=== PATIENT | male | born 1955 | race Caucasian/White ===

== ENCOUNTER 2017-02-26 13:55 | Inpatient (IN) | payer BC ==
[2017-02-26] MEDS ORDERED: VANCOMYCIN HCL INJ 1000 MG VIAL IV ONE (14:08)
[2017-02-26] MEDS ORDERED: PIPERACILLIN/TAZOBACTAM 4.5 GM VIAL IV ONE (14:08)
--- NOTE | 2017-02-26 14:12 | ER Document Report ---
ED Medical Screen (RME) - General Chief Complaint: Leg Swelling Stated Complaint: LEG SWELLING Time Seen by Provider: 02/26/17 14:08 Mode of Arrival: Ambulatory Information source: Patient Notes: 61-year-old male presents with 2 separate complaints from his primary care doctor. Patient notes for the past couple weeks he has had bilateral lower extremity redness and has also had left sided facial swelling probable abscess. Patient was placed on Augmentin denies any fevers or chills. I have greeted and performed a rapid initial assessment of this patient. A comprehensive ED assessment and evaluation of the patient, analysis of test results and completion of the medical decision making process will be conducted by additional ED providers. PHYSICAL EXAMINATION: GENERAL: Well-appearing, well-nourished and in no acute distress. HEAD: Left facial swelling EYES: Pupils equal round extraocular movements intact, conjunctiva are normal. ENT: Nares patent NECK: Normal range of motion LUNGS: No respiratory distress Musculoskeletal: Normal range of motion NEUROLOGICAL: Normal speech, normal gait. PSYCH: Normal mood, normal affect. SKIN: Bilateral lower extremity edema +3 with erythema TRAVEL OUTSIDE OF THE [place] IN LAST 30 DAYS: No - HPI Onset: Last week Onset/Duration: Persistent Quality of pain: Achy Severity: Mild Pain Level: 1 Associated Symptoms: Other Exacerbated by: Denies Relieved by: Denies Similar symptoms previously: Yes Recently seen / treated by doctor: Yes - Sent in by primary care - Related Data Allergies/Adverse Reactions: No Known Allergies Allergy (Verified 02/26/17 14:06) Past Medical History Renal/ Medical History: Denies: Hx Peritoneal Dialysis Physical Exam - Vital signs Vitals: Temp Pulse Resp BP Pulse Ox 98.5 F 120 H 21 H 144/113 H 96 02/26/17 13:58 02/26/17 13:58 02/26/17 13:58 02/26/17 13:58 02/26/17 13:58 Course - Re-evaluation Re-evalutation: 02/26/17 14:15 Patient's lab work notes a white count 19.4 from outlying facility, CT facial ordered - Vital Signs Vital signs: Temp Pulse Resp BP Pulse Ox 98.5 F 120 H 21 H 144/113 H 96 02/26/17 13:58 02/26/17 13:58 02/26/17 13:58 02/26/17 13:58 02/26/17 13:58
[2017-02-26] MEDS: NORMAL SALINE 1000 ML 1,000 ML IV PRN ×4 (14:43→17:11)
[2017-02-26 14:48] LABS: APPEARANCE,URINE CLEAR; BILIRUBIN,URINE NEGATIVE (NEGATIVE); GLUCOSE, URINE NEGATIVE (NEGATIVE); KETONES,URINE NEGATIVE (NEGATIVE); LEUKOCYTE ESTERASE,URINE NEGATIVE (NEGATIVE); NITRITE,URINE NEGATIVE (NEGATIVE); PROTEIN,URINE NEGATIVE (NEGATIVE); URINE SPECIFIC GRAVITY 1.006; UROBILINOGEN,URINE NEGATIVE mg/dL (<2.0)
[2017-02-26 14:56] LABS: ABSOLUTE BASOPHILS # (AUTO) 0.1 10^3/uL (0.0-0.2); ABSOLUTE EOSINOPHILS # (AUTO) 0.5 10^3/uL (0.0-0.6); ABSOLUTE LYMPHOCYTES (AUTO) 0.9 10^3/uL (0.5-4.7); ABSOLUTE MONOCYTES (AUTO) 0.9 10^3/uL (0.1-1.4); ABSOLUTE NEUT (AUTO) 6.9 10^3/uL (1.7-8.2); BASOPHILS % (AUTO) 0.8 % (0-2); EOSINOPHILS % (AUTO) 5.6 % (0-6); HEMATOCRIT 43.7 % (37.9-51.0); HEMOGLOBIN 15.1 g/dL (13.5-17.0); HGB HCT DIFFERENCE 1.6; LYMPHOCYTES % (AUTO) 9.6 % (13-45); MEAN CORPUSCULAR HEMOGLOBIN 32.3 pg (27.0-33.4); MEAN CORPUSCULAR HGB CONC 34.6 g/dL (32.0-36.0); MEAN CORPUSCULAR VOLUME 93 fl (80-97); MONOCYTES % (AUTO) 9.5 % (3-13); RED BLOOD COUNT 4.68 10^6/uL (4.35-5.55); RED CELL DISTRIBUTION WIDTH 14.5 % (11.5-14.0); SEGMENTED NEUTROPHILS % (AUTO) 74.5 % (42-78); WHITE BLOOD COUNT 9.2 10^3/uL (4.0-10.5)
[2017-02-26 15:01] LABS: VENOUS BLOOD BASE EXCESS 4.1 mmol/L; VENOUS BLOOD HCO3 30.8 mmol/L (20-32); VENOUS BLOOD PCO2 53.5 mmHg (35-63); VENOUS BLOOD PH 7.38 (7.30-7.42)
[2017-02-26 15:05] LABS: PROTHROMBIN TIME 14.1 SEC (11.4-15.4)
[2017-02-26 15:17] LABS: ALANINE AMINOTRANSFERASE 38 U/L (21-72); ALKALINE PHOSPHATASE 94 U/L (38-126); ANION GAP 10 (5-19); ASPARTATE AMINO TRANSFERASE 28 U/L (17-59); BILIRUBIN,DIRECT 0.5 mg/dL (0.0-0.4); BILIRUBIN,TOTAL 0.6 mg/dL (0.2-1.3); BLOOD UREA NITROGEN 4 mg/dL (7-20); CALCIUM 9.7 mg/dL (8.4-10.2); CARBON DIOXIDE 30 mmol/L (22-30); CHLORIDE 93 mmol/L (98-107); CREATININE RESULT 0.67 mg/dL (0.52-1.25); GLUCOSE 138 mg/dL (75-110); POTASSIUM 4.5 mmol/L (3.6-5.0); SODIUM 133.2 mmol/L (137-145); TOTAL PROTEIN 7.3 g/dL (6.3-8.2)
--- NOTE | 2017-02-26 15:25 | ER Document Report ---
ED General - General Chief Complaint: Leg Swelling Stated Complaint: LEG SWELLING Time Seen by Provider: 02/26/17 14:08 Mode of Arrival: Ambulatory Information source: Patient Notes: Patient presents complaining of lower extremity swelling for the past 3 weeks. Patient states that he has had swelling to his right lower jaw area off and on for the past 2-3 months. Patient reports he has had an abscess to the left side of his face for the past month. Patient states initially he was placed on clindamycin in early January and then changed over to Augmentin. Patient did see an ENT doctor 3 days ago and had a needle aspiration. Patient states that he is also seen an oral surgeon who advises dental extraction to help with his symptoms. Patient denies any fever, nausea, or vomiting. Patient states that his legs have started to become erythematous and have started to increase in swelling. Patient states that the abscess to the right side of his face comes and goes will occasionally drain purulent drainage. Patient states that the left side jaw swelling has been decreasing. TRAVEL OUTSIDE OF THE [place] IN LAST 30 DAYS: No - HPI Onset: Other - 1 month Onset/Duration: Persistent Pain Level: 3 Associated symptoms: Other - Lower extremity swelling, abscess to bilateral jaw area. denies: Chest pain, Nonproductive cough, Productive cough, Fever Exacerbated by: Denies Relieved by: Denies Similar symptoms previously: No Recently seen / treated by doctor: Yes - Related Data Allergies/Adverse Reactions: No Known Allergies Allergy (Verified 02/26/17 14:06) Home Medications: Current Home Medications No Home Medications 02/27/17 [History] Past Medical History - General Information source: Patient - Social History Smoking Status: Former Smoker Chew tobacco use (# tins/day): No Frequency of alcohol use: Rare Drug Abuse: None Occupation: none Family History: Reviewed & Not Pertinent - Medical History Medical History: Negative Renal/ Medical History: Denies: Hx Peritoneal Dialysis Surgical Hx: Negative - Immunizations Hx Diphtheria, Pertussis, Tetanus Vaccination: No Review of Systems - Review of Systems Constitutional: No symptoms reported. denies: Fever EENT: Other - widespread dental decay Cardiovascular: No symptoms reported Respiratory: No symptoms reported. denies: Cough, Short of breath Gastrointestinal: No symptoms reported. denies: Abdominal pain, Nausea, Vomiting Genitourinary: No symptoms reported Male Genitourinary: No symptoms reported Musculoskeletal: Leg swelling Skin: Change in color - redness to bilat LE, Other - abscess to right and left side of jaw Hematologic/Lymphatic: No symptoms reported Neurological/Psychological: No symptoms reported Physical Exam - Vital signs Vitals: Temp Pulse Resp BP Pulse Ox 98.5 F 120 H 21 H 144/113 H 96 02/26/17 13:58 02/26/17 13:58 02/26/17 13:58 02/26/17 13:58 02/26/17 13:58 - General General appearance: Appears well, Alert In distress: None - HEENT Head: Normocephalic, Atraumatic Eyes: Normal Mouth/Lips: Caries - widespread, Dental fracture Mucous membranes: Normal Pharynx: Normal Neck: Supple, Other - Tender indurated lesion to left lower jaw near angle of mandible, tender mildly indurated lesion to right side of jaw inferior to mandible. No: Lymphadenopathy - Respiratory Respiratory status: No respiratory distress Chest status: Nontender Breath sounds: Normal. No: Rales, Rhonchi, Stridor, Wheezing Chest palpation: Normal - Cardiovascular Rhythm: Regular Heart sounds: S1 appreciated, S2 appreciated Murmur: No - Abdominal Inspection: Normal Distension: No distension Bowel sounds: Normal Tenderness: Nontender Organomegaly: No organomegaly - Back Back: Normal, Nontender. No: CVA tenderness - Extremities General upper extremity: Normal inspection, Normal ROM General lower extremity: Edema. No: Normal temperature Knee: Normal Calf: Other - edema Ankle: Tender, Edema Foot: Tender, Edema Notes: Patient with warm erythematous skin to bilateral lower extremities distal half of lower legs extending to ankles and feet. Patient with multiple fluid-filled blisterlike lesions to bilateral feet - Neurological Neuro grossly intact: Yes Cognition: Normal Pat Coma Scale Eye Opening: Spontaneous Pat Coma Scale Verbal: Oriented Pat Coma Scale Motor: Obeys Commands Pat Coma Scale Total: 15 - Psychological Associated symptoms: Normal affect, Normal mood - Skin Skin Temperature: Warm Skin Moisture: Dry Skin Color: Erythema - bilat LE Skin Turgor: Edematous Skin irregularity: Erythema, Tender indurated area - right side neck, left angle of mandible Irregularity with: Swelling, Tenderness, Warmth, Inflammation - bilat LE Course - Re-evaluation Re-evalutation: 02/26/17 17:[address] Perez regarding patient presentation and diagnostic evaluation. Discussed patient's continued tachycardia, advises starting patient on Cardizem drip and consulting with hospitalist for admission given patient's new onset atrial fibrillation. 02/26/17 17:[address] Cox who advises had a non-cardiac enzymes and BNP test given concerns about CHF. If patient does not have elevated troponin she recommends calling hospitalist back for admission 02/26/17 19:[address] Kilgore who recommends consultation with cardiology as he feels patient may need cardioversion 02/26/17 19:[address] Matamoros who recommends that patient can be placed on Cardizem 60 mg p.o. now and Cardizem 180 CD mg now, but feels that patient should likely be admitted 02/26/17 19:[address] Kilgore who recommends admitting patient to [facility] 02/26/17 19:57 - Vital Signs Vital signs: Temp Pulse Resp BP Pulse Ox 99.1 F 86 14 100/88 H 98 02/27/17 00:46 02/27/17 06:00 02/27/17 04:20 02/27/17 06:57 02/27/17 05:12 - Laboratory Result Diagrams: 02/27/17 03:20 02/27/17 03:20 Laboratory results interpreted by me: 02/26/17 02/26/17 02/26/17 14:32 14:36 14:36 RDW 14.5 H Lymphocytes % 9.6 L Sodium 133.2 L Chloride 93 L BUN 4 L Glucose 138 H POC Glucose 135 H Direct Bilirubin 0.5 H Creatine Kinase NT-Pro-B Natriuret Pep 02/26/17 02/26/17 14:36 14:36 RDW Lymphocytes % Sodium Chloride BUN Glucose POC Glucose Direct Bilirubin Creatine Kinase 40 L NT-Pro-B Natriuret Pep 1610 H Discharge - Discharge Clinical Impression: Peripheral edema, bilateral parotid gland masses Atrial fibrillation Qualifiers: Atrial fibrillation type: unspecified Qualified Code(s): I48.91 - Unspecified atrial fibrillation Condition: Stable Disposition: ADMITTED INPATIENT Admitting Provider: Hospitalist Unit Admitted: [facility]
[2017-02-26] MEDS ORDERED: LORAZEPAM INJ 2 MG/1 ML VIAL IV ONE (16:01)
[2017-02-26 17:49] LABS: ADD ON TESTING BLD IN LAB ACKNOWLEDGE
[2017-02-26 18:00] LABS: CREATINE KINASE 40 U/L (55-170)
[2017-02-26] MEDS: DILTIAZEM HCL/D5W 125 MG/125 ML RTUINJ IV PRN ×2 (18:06→23:29)
[2017-02-26 18:13] LABS: CREATINE KINASE MB 1.27 ng/mL (<4.55)
[2017-02-26 18:19] LABS: TROPONIN I < 0.012 ng/mL
--- NOTE | 2017-02-26 18:21 | RADIOLOGY REPORT (SQ) ---
EXAM DESCRIPTION: CT FACIAL AREA WITH COMPLETED DATE/TIME: 02/26/2017 5:49 pm REASON FOR STUDY: left facial abscess? COMPARISON: None. TECHNIQUE: Post contrast images through the facial bones and orbits windowed for bone and soft tissu e. Additional coronal and sagittal reconstructed images reviewed. All images stored on PACS. All CT scanners at this facility use dose modulation, iterative reconstruction, and/or weight based d osing when appropriate to reduce radiation dose to as low as reasonably achievable (ALARA). [facility]: Dose Right [facility]: CareDose [facility]: Dose Right [facility]: Teradose 4D [facility]: [employer] CONTRAST TYPE AND DOSE: contrast/concentration: Isovue 370.00 mg/ml; Total Contrast Delivered: 49.0 ml; Total Saline Delivered: 47.1 ml RENAL FUNCTION: Creatinine 0.67. RADIATION DOSE: Up-to-date CT equipment and radiation dose reduction techniques were employed. CTDIv ol: 30.4 mGy. DLP: 631 mGy-cm. . LIMITATIONS: None. FINDINGS: FACIAL BONES: No fracture or bone lesion. ORBITS: Intact. No fracture. Symmetric intact globes and retroorbital soft tissues. PARANASAL SINUSES: Clear. No significant mucosal thickening, mass or fluid. No nasal polyps. Maxilla ry sinus outlets are patent. SOFT TISSUES: Heterogeneous masses bilaterally in the parotids, which are otherwise ill-defined with regional fluid and fat stranding. Presumed abnormal enlarged lymph nodes or other masses. The large st appears to be in the region of the left parotid extending inferiorly to lie lateral to the submand ibular gland. This measures at least 4 cm transverse dimension and likely up to 6 cm craniocaudally. Areas of low density within likely reflect necrosis. No calcifications or stones. . INFERIOR BRAIN: Limited view. No acute findings. OTHER: No other significant finding. IMPRESSION: Bilateral masses in the region of the bilateral parotid glands. More extensive on the l eft. Consider infectious inflammatory etiologies including sialadenitis. Low density areas within t he masses most likely represent areas of necrosis/liquefaction. Abscess felt to be unlikely. Please note, neoplasm is also in the differential, to include lymphoma. TECHNICAL DOCUMENTATION: JOB ID: [id number] Quality ID # [id number]: Final reports with documentation of one or more dose reduction techniques (e.g., Au tomated exposure control, adjustment of the mA and/or kV according to patient size, use of iterative reconstruction technique) 2010 [employer]- All Rights Reserved
--- NOTE | 2017-02-26 19:14 | RADIOLOGY REPORT (SQ) ---
EXAM DESCRIPTION: CHEST PA/LAT COMPLETED DATE/TIME: 02/26/2017 5:56 pm REASON FOR STUDY: new a fib COMPARISON: None. TECHNIQUE: Frontal and lateral radiographic views of the chest acquired. NUMBER OF VIEWS: Two view. LIMITATIONS: None. FINDINGS: LUNGS AND PLEURA: Slight vascular congestion is suggested. Minimal interstitial edema lik elias. MEDIASTINUM AND HILAR STRUCTURES: No masses or contour abnormalities. HEART AND VASCULAR STRUCTURES: Mild left ventricular prominence. BONES: No acute findings. HARDWARE: None in the chest. OTHER: No other significant finding. IMPRESSION: Suspect mild interstitial edema and vascular congestion. TECHNICAL DOCUMENTATION: JOB ID: [id number] [employer]- All Rights Reserved
[2017-02-26] MEDS ORDERED: MAG HYDROX/AL HYDROX/SIMETH SUSP 30 ML UDCUP PO PRN (19:51)
[2017-02-26] MEDS ORDERED: IPRATROPIUM/ALBUTEROL 0.5-2.5 MG/3 ML AMPUL NEB PRN (19:51)
[2017-02-26] MEDS ORDERED: ACETAMINOPHEN 325 MG TABLET PO PRN (19:51)
[2017-02-26] MEDS ORDERED: HEPARIN SOD (PORCINE) 1,000 UNIT/ML 10 ML VIAL IV ONE (19:55)
[2017-02-26] MEDS ORDERED: HEPARIN SOD (PORCINE) 1,000 UNIT/ML 10 ML VIAL IV PRN (19:55)
[2017-02-26 21:13] LABS: ABSOLUTE BASOPHILS # (AUTO) 0.1 10^3/uL (0.0-0.2); ABSOLUTE EOSINOPHILS # (AUTO) 0.5 10^3/uL (0.0-0.6); ABSOLUTE NEUT (AUTO) 7.8 10^3/uL (1.7-8.2); BASOPHILS % (AUTO) 0.5 % (0-2); EOSINOPHILS % (AUTO) 4.9 % (0-6); HEMATOCRIT 43.6 % (37.9-51.0); HEMOGLOBIN 14.6 g/dL (13.5-17.0); HGB HCT DIFFERENCE 0.2; LYMPHOCYTES % (AUTO) 9.3 % (13-45); MEAN CORPUSCULAR HEMOGLOBIN 31.8 pg (27.0-33.4); MEAN CORPUSCULAR HGB CONC 33.4 g/dL (32.0-36.0); MEAN CORPUSCULAR VOLUME 95 fl (80-97); MONOCYTES % (AUTO) 9.3 % (3-13); RED BLOOD COUNT 4.57 10^6/uL (4.35-5.55); RED CELL DISTRIBUTION WIDTH 14.3 % (11.5-14.0); WHITE BLOOD COUNT 10.3 10^3/uL (4.0-10.5)
[2017-02-26 21:32] LABS: PROTHROMBIN TIME 14.3 SEC (11.4-15.4)
[2017-02-26 21:33] LABS: PARTIAL THROMBOPLASTIN TIME 31.8 SEC (23.5-35.8)
[2017-02-26 21:49] LABS: CREATINE KINASE MB 1.91 ng/mL (<4.55)
[2017-02-26 21:53] LABS: TROPONIN I < 0.012 ng/mL
[2017-02-26] MEDS ORDERED: IPRATROPIUM BROMIDE 0.02% NEB 0.5 MG/2.5 ML AMPUL NEB ONE (22:45)
[2017-02-26] MEDS ORDERED: LEVALBUTEROL HCL NEB 1.25 MG/3 ML AMPUL NEB ONE (22:45)
[2017-02-26] MEDS ORDERED: FUROSEMIDE INJ/PF 40 MG/4 ML SDV IV ONE (22:45)
--- NOTE | 2017-02-26 23:18 | EKG REPORT ---
SEVERITY:- ABNORMAL ECG - ATRIAL FIBRILLATION, V-RATE 81-134 LOW VOLTAGE IN FRONTAL LEADS CONSIDER ANTEROSEPTAL INFARCT : Confirmed by: Shahzad Matamoros 26-Feb-2017 23:17:51
[2017-02-26] MEDS: HEPARIN SODIUM,PORCINE/D5W 25,000 UNIT/250 ML RTUINJ IV PRN (23:31)
[2017-02-27 03:33] LABS: URINE BARBITURATES SCREEN NEGATIVE; URINE METHADONE SCREEN NEGATIVE; URINE OPIATES LOW NEGATIVE; URINE PHENCYCLIDINE SCREEN NEGATIVE
[2017-02-27 03:39] LABS: ABSOLUTE EOSINOPHILS # (AUTO) 0.5 10^3/uL (0.0-0.6); ABSOLUTE LYMPHOCYTES (AUTO) 0.8 10^3/uL (0.5-4.7); ABSOLUTE MONOCYTES (AUTO) 0.9 10^3/uL (0.1-1.4); ABSOLUTE NEUT (AUTO) 8.3 10^3/uL (1.7-8.2); BASOPHILS % (AUTO) 0.3 % (0-2); HEMATOCRIT 42.5 % (37.9-51.0); HEMOGLOBIN 14.3 g/dL (13.5-17.0); HGB HCT DIFFERENCE 0.4; LYMPHOCYTES % (AUTO) 7.5 % (13-45); MEAN CORPUSCULAR HEMOGLOBIN 31.9 pg (27.0-33.4); MEAN CORPUSCULAR HGB CONC 33.6 g/dL (32.0-36.0); MEAN CORPUSCULAR VOLUME 95 fl (80-97); MONOCYTES % (AUTO) 8.2 % (3-13); RED BLOOD COUNT 4.47 10^6/uL (4.35-5.55); RED CELL DISTRIBUTION WIDTH 13.9 % (11.5-14.0); WHITE BLOOD COUNT 10.5 10^3/uL (4.0-10.5)
[2017-02-27 03:48] LABS: ANION GAP 10 (5-19); BLOOD UREA NITROGEN 3 mg/dL (7-20); CALCIUM 9.1 mg/dL (8.4-10.2); CARBON DIOXIDE 28 mmol/L (22-30); CHLORIDE 99 mmol/L (98-107); CREATINE KINASE 100 U/L (55-170); CREATININE RESULT 0.59 mg/dL (0.52-1.25); GLUCOSE 144 mg/dL (75-110); POTASSIUM 3.9 mmol/L (3.6-5.0); SODIUM 136.7 mmol/L (137-145)
[2017-02-27 03:57] LABS: CREATINE KINASE MB 2.24 ng/mL (<4.55)
[2017-02-27 03:58] LABS: TROPONIN I < 0.012 ng/mL
--- NOTE | 2017-02-27 04:44 | PDOC H&P ---
History of Present Illness Admission Date/PCP: 02/26/17 19:51 Patient complains of: Shortness of breath and leg edema History of Present Illness: DANIELA GARCIA JR is a 61 year old male with a past medical history of tobacco dependence and 3 months of bilateral parotid gland swelling recently seen by ENT placed on Augmentin and clindamycin and subsequently developing diarrhea. However the patient's primary complaint is shortness of breath and lower extremity edema denying palpitations nausea or vomiting prompting his evaluation emergency room. Where he is found to have atrial fibrillation with RVR, acute congestive heart failure, and a CT of the parotid glands suggestive of necrosis without abscess. He is referred to the hospitalist for admission. Past Medical History Endocrine Medical History: Reports: Obesity Psychiatric Medical History: Reports: Tobacco Dependency Social History Information Source: Patient Lives with: Spouse/Significant other Smoking Status: Current Every Day Smoker Cigarettes Packs Per Day: 0.5 Number of Years Smokin Last Time Smoked: today Frequency of Alcohol Use: Social Hx Recreational Drug Use: No Drugs: None Hx Prescription Drug Abuse: No Family History Family History: CAD, COPD, CVA Parental Family History Reviewed: Yes Children Family History Reviewed: Yes Sibling(s) Family History Reviewed.: Yes Medication/Allergy Allergies/Adverse Reactions: No Known Allergies Allergy (Verified 02/26/17 14:06) Review of Systems Constitutional: PRESENT: fatigue Eyes: ABSENT: visual disturbances Ears: ABSENT: hearing changes Nose, Mouth, and Throat: PRESENT: mouth pain, other - Poor dentition bilateral parotid gland swelling with necrosis Cardiovascular: PRESENT: dyspnea on exertion, edema, orthropnea. ABSENT: chest pain, palpitations Respiratory: PRESENT: cough, sputum Gastrointestinal: ABSENT: abdominal pain, constipation, diarrhea, hematemesis, hematochezia, nausea, vomiting Genitourinary: ABSENT: dysuria, hematuria Musculoskeletal: ABSENT: joint swelling Integumentary: ABSENT: rash, wounds Neurological: ABSENT: abnormal gait, abnormal speech, confusion, dizziness, focal weakness, syncope Psychiatric: ABSENT: anxiety, depression, homidical ideation, suicidal ideation Endocrine: ABSENT: cold intolerance, heat intolerance, polydipsia, polyuria Hematologic/Lymphatic: ABSENT: easy bleeding, easy bruising Physical Exam Vital Signs: Temp Pulse Resp BP Pulse Ox 99.1 F 92 14 113/67 90 L 02/27/17 00:46 02/27/17 02:00 02/27/17 00:46 02/27/17 02:01 02/27/17 00:26 Intake & Output 02/25/17 02/26/17 02/27/17 11:59 11:59 11:59 Weight 101.2 kg General appearance: PRESENT: cooperative, mild distress, obese Head exam: PRESENT: atraumatic, normocephalic Eye exam: PRESENT: conjunctiva pink, EOMI, PERRLA. ABSENT: scleral icterus Ear exam: PRESENT: normal external ear exam Mouth exam: PRESENT: tongue midline, other Teeth exam: PRESENT: dental caries, poor dentation Neck exam: PRESENT: other - Bilateral parotid swelling and erythema Respiratory exam: PRESENT: crackles, decreased breath sounds, prolonged expiratory phas, retraction, symmetrical, tachypnea. ABSENT: rales, rhonchi, wheezes Cardiovascular exam: PRESENT: gallop, irregular rhythm, +S1, +S2, tachycardia Pulses: PRESENT: normal dorsalis pedis pul GI/Abdominal exam: PRESENT: normal bowel sounds, soft. ABSENT: distended, guarding, mass, organolmegaly, rebound, tenderness Rectal exam: PRESENT: deferred Extremities exam: PRESENT: pedal edema, +2 edema. ABSENT: joint swelling Neurological exam: PRESENT: alert, awake, oriented to person, oriented to place , oriented to time, oriented to situation, CN II-XII grossly intact. ABSENT: motor sensory deficit Psychiatric exam: PRESENT: unusual affect Skin exam: PRESENT: dry, intact, warm. ABSENT: cyanosis, rash Results Laboratory Results: 02/27/17 03:20 02/27/17 03:20 02/26/17 02/26/17 02/27/17 21:00 21:00 03:20 WBC 10.3 10.5 RBC 4.57 4.47 Hgb 14.6 14.3 Hct 43.6 42.5 MCV 95 95 MCH 31.8 31.9 MCHC 33.4 33.6 RDW 14.3 H 13.9 Plt Count 199 208 Seg Neutrophils % 76.0 79.0 H Lymphocytes % 9.3 L 7.5 L Monocytes % 9.3 8.2 Eosinophils % 4.9 5.0 Basophils % 0.5 0.3 Absolute Neutrophils 7.8 8.3 H Absolute Lymphocytes 1.0 0.8 Absolute Monocytes 1.0 0.9 Absolute Eosinophils 0.5 0.5 Absolute Basophils 0.1 0.0 Sodium Potassium Chloride Carbon Dioxide Anion Gap BUN Creatinine Est GFR ( Amer) Est GFR (Non-Af Amer) Glucose Calcium TSH 1.26 02/27/17 03:20 WBC RBC Hgb Hct MCV MCH MCHC RDW Plt Count Seg Neutrophils % Lymphocytes % Monocytes % Eosinophils % Basophils % Absolute Neutrophils Absolute Lymphocytes Absolute Monocytes Absolute Eosinophils Absolute Basophils Sodium 136.7 L Potassium 3.9 Chloride 99 Carbon Dioxide 28 Anion Gap 10 BUN 3 L Creatinine 0.59 Est GFR ( Amer) > 60 Est GFR (Non-Af Amer) > 60 Glucose 144 H Calcium 9.1 TSH 02/26/17 02/26/17 02/27/17 21:00 21:00 03:20 Creatine Kinase 73 CK-MB (CK-2) 1.91 2.24 Troponin I < 0.012 < 0.012 02/27/17 03:20 Creatine Kinase 100 CK-MB (CK-2) Troponin I Impressions: Facial Bones CT 02/26/17 14:13 IMPRESSION: Bilateral masses in the region of the bilateral parotid glands. More extensive on the left. Consider infectious inflammatory etiologies including sialadenitis. Low density areas within the masses most likely represent areas of necrosis/liquefaction. Abscess felt to be unlikely. Please note, neoplasm is also in the differential, to include lymphoma. Chest X-Ray 02/26/17 17:45 IMPRESSION: Suspect mild interstitial edema and vascular congestion. Assessment & Plan - Diagnosis (1) Congestive heart failure Is this a current diagnosis for this admission?: Yes Plan: Likely secondary to uncontrolled atrial fibrillation and be placed on IV Cardizem, gentle diuresis, BiPAP and 2D echo. (2) Pulmonary embolism Is this a current diagnosis for this admission?: Yes Plan: Concern for PE obtain CTA chest, empiric anticoagulation given chronic inflammatory state, tobacco and hypotension. Follow-up CTA (3) Mass of parotid gland Is this a current diagnosis for this admission?: Yes Plan: Marketed bilateral edema with central necrosis by CT. Recently biopsied by ENT will obtain results concern for adenocarcinoma. Continue empiric antibiotics (4) Atrial fibrillation Qualifiers: Atrial fibrillation type: unspecified Qualified Code(s): I48.91 - Unspecified atrial fibrillation Is this a current diagnosis for this admission?: Yes Plan: IV Cardizem, heparin, evaluate cardiac enzymes and 2D echo. (5) Peripheral edema Is this a current diagnosis for this admission?: Yes Plan: Secondary to acute congestive heart failure gentle diuresis correction of A. fib and decompensated state. (6) C. difficile colitis Is this a current diagnosis for this admission?: Yes Plan: Concern for C. difficile colitis on clindamycin and severe diarrhea. Initiate Flagyl discontinue clindamycin follow-up C. difficile labs. - Time Time Spent: 50 to 70 Minutes - Inpatient Certification Medical Necessity: Need Close Monitoring Due to Risk of Patient Decompensation
[2017-02-27] MEDS: DILTIAZEM HCL 60 MG TABLET PO SCH ×4 (06:07→17:44)
[2017-02-27] MEDS: IPRATROPIUM BROMIDE 0.02% NEB 0.5 MG/2.5 ML AMPUL NEB SCH ×3 (07:42→23:32)
[2017-02-27] MEDS: LEVALBUTEROL HCL NEB 1.25 MG/3 ML AMPUL NEB SCH ×3 (07:43→23:33)
[2017-02-27] MEDS: DOCUSATE SODIUM 100 MG CAPSULE PO SCH ×2 (09:40→12:04)
[2017-02-27] MEDS: FUROSEMIDE INJ/PF 40 MG/4 ML SDV IV SCH (09:52)
[2017-02-27 10:33] LABS: CREATINE KINASE MB 2.25 ng/mL (<4.55)
[2017-02-27 10:39] LABS: TROPONIN I < 0.012 ng/mL
--- NOTE | 2017-02-27 11:16 | PDOC PROGRESS REPORT ---
Subjective Progress Note for:: 02/27/17 Subjective:: Patient reports some diarrhea. Physical Exam Vital Signs: Temp Pulse Resp BP Pulse Ox 99.1 F 91 20 108/81 98 02/27/17 00:46 02/27/17 09:00 02/27/17 07:46 02/27/17 09:00 02/27/17 07:46 Intake & Output 02/26/17 02/27/17 02/28/17 06:59 06:59 06:59 Intake Total 300 Output Total 1800 Balance -1500 Weight 101.2 kg General appearance: PRESENT: no acute distress Eye exam: PRESENT: conjunctiva pink. ABSENT: scleral icterus Mouth exam: PRESENT: moist, tongue midline Neck exam: ABSENT: JVD Respiratory exam: PRESENT: clear to auscultation phil. ABSENT: rales, rhonchi, wheezes Cardiovascular exam: PRESENT: irregular rhythm. ABSENT: diastolic murmur, rubs , systolic murmur GI/Abdominal exam: PRESENT: normal bowel sounds, soft. ABSENT: distended, guarding, mass, organolmegaly, rebound, tenderness Extremities exam: ABSENT: calf tenderness, clubbing, pedal edema Neurological exam: PRESENT: alert, awake, oriented to person, oriented to place , oriented to time, oriented to situation, CN II-XII grossly intact. ABSENT: motor sensory deficit Psychiatric exam: PRESENT: appropriate affect Skin exam: PRESENT: dry, intact, warm. ABSENT: cyanosis, rash Results Laboratory Results: 02/27/17 03:20 02/27/17 03:20 02/26/17 02/26/17 02/27/17 21:00 21:00 03:20 WBC 10.3 10.5 RBC 4.57 4.47 Hgb 14.6 14.3 Hct 43.6 42.5 MCV 95 95 MCH 31.8 31.9 MCHC 33.4 33.6 RDW 14.3 H 13.9 Plt Count 199 208 Seg Neutrophils % 76.0 79.0 H Lymphocytes % 9.3 L 7.5 L Monocytes % 9.3 8.2 Eosinophils % 4.9 5.0 Basophils % 0.5 0.3 Absolute Neutrophils 7.8 8.3 H Absolute Lymphocytes 1.0 0.8 Absolute Monocytes 1.0 0.9 Absolute Eosinophils 0.5 0.5 Absolute Basophils 0.1 0.0 Sodium Potassium Chloride Carbon Dioxide Anion Gap BUN Creatinine Est GFR ( Amer) Est GFR (Non-Af Amer) Glucose Calcium TSH 1.26 Stool Occult Blood 02/27/17 02/27/17 03:20 10:10 WBC RBC Hgb Hct MCV MCH MCHC RDW Plt Count Seg Neutrophils % Lymphocytes % Monocytes % Eosinophils % Basophils % Absolute Neutrophils Absolute Lymphocytes Absolute Monocytes Absolute Eosinophils Absolute Basophils Sodium 136.7 L Potassium 3.9 Chloride 99 Carbon Dioxide 28 Anion Gap 10 BUN 3 L Creatinine 0.59 Est GFR ( Amer) > 60 Est GFR (Non-Af Amer) > 60 Glucose 144 H Calcium 9.1 TSH Stool Occult Blood POSITIVE 02/26/17 02/26/17 02/27/17 21:00 21:00 03:20 Creatine Kinase 73 CK-MB (CK-2) 1.91 2.24 Troponin I < 0.012 < 0.012 02/27/17 02/27/17 02/27/17 03:20 09:40 09:40 Creatine Kinase 100 115 CK-MB (CK-2) 2.25 Troponin I < 0.012 Impressions: Facial Bones CT 02/26/17 14:13 IMPRESSION: Bilateral masses in the region of the bilateral parotid glands. More extensive on the left. Consider infectious inflammatory etiologies including sialadenitis. Low density areas within the masses most likely represent areas of necrosis/liquefaction. Abscess felt to be unlikely. Please note, neoplasm is also in the differential, to include lymphoma. Chest X-Ray 02/26/17 17:45 IMPRESSION: Suspect mild interstitial edema and vascular congestion. Assessment & Plan - Diagnosis (1) Atrial fibrillation Qualifiers: Atrial fibrillation type: unspecified Qualified Code(s): I48.91 - Unspecified atrial fibrillation Is this a current diagnosis for this admission?: Yes Plan: Patient is currently rate controlled on the diltiazem drip. Patient is to get an echocardiogram and be evaluated by cardiology today. A CT angiogram of the lungs has been ordered to rule out pulmonary embolism. We are waiting on those results. (2) Congestive heart failure Is this a current diagnosis for this admission?: Yes Plan: Patient appears to be euvolemic at the time of my exam. The patient most likely has CHF on the basis of atrial fibrillation with rapid ventricular rate. (3) Mass of parotid gland Is this a current diagnosis for this admission?: Yes Plan: She was recently on clindamycin and Augmentin. The patient now has diarrhea. A C. difficile test has been sent. We will continue to Flagyl for now. (4) C. difficile colitis Is this a current diagnosis for this admission?: Yes - Time Time Spent with patient: 25-34 minutes
--- NOTE | 2017-02-27 11:28 | PDOC CONSULTATION ---
Consultation Consult Date: 02/27/17 Attending physician:: SENTHIL CA Consult reason:: Atrial fibrillation, CHF History of Present Illness Admission Date/PCP: 02/26/17 19:51 Patient complains of: Leg edema History of Present Illness: DANIELA GARCIA JR is a 61 year old male with a past medical history of tobacco dependence and 3 months of bilateral parotid gland swelling recently seen by ENT placed on Augmentin and clindamycin and subsequently developing diarrhea. However the patient's primary complaint is shortness of breath and lower extremity edema. Denying palpitations, nausea or vomiting or any chest pain.. In the emergency room patient is found to have atrial fibrillation with RVR, acute congestive heart failure, and a CT of the parotid glands suggestive of necrosis without abscess. Patient chest x-ray shows congestive heart failure. Patient noted to be in atrial fibrillation with rapid ventricular response. Patient therefore referred for further evaluation and management. Past Medical History Endocrine Medical History: Reports: Obesity Psychiatric Medical History: Reports: Tobacco Dependency Social History Information Source: Patient Lives with: Spouse/Significant other Smoking Status: Former Smoker Cigarettes Packs Per Day: 0.5 Number of Years Smokin Last Time Smoked: today Frequency of Alcohol Use: Social Hx Recreational Drug Use: No Drugs: None Hx Prescription Drug Abuse: No - Advance Directive Resuscitation Status: Full Code Surrogate healthcare decision maker:: Patient's brother by the name of Winston is the surrogate decision-maker Family History Family History: Hypertension Parental Family History Reviewed: Yes Children Family History Reviewed: Yes Sibling(s) Family History Reviewed.: Yes Medication/Allergy Home Medications: No Home Medications 02/27/17 Allergies/Adverse Reactions: No Known Allergies Allergy (Verified 02/26/17 14:06) Review of Systems Review of Systems: Please see history of present illness and past medical history as wall. Constitutional: No fever or chills reported. Head : No recent chronic headaches, recent head injury. Bilateral parotid swelling been noted for a few weeks. Eyes: No recent eye pain, diplopia, redness, discharge, acute visual changes. Ears: No recent chronic ear pain, acute hearing loss, ear discharge. Oral cavity: No recent ulcerations, bleeding, oral cavity discomfort. Neck: No recent acute neck pain reported. Hematologic: No recent easy bruising or bleeding or hematologic malignancy reported. Lymphatic: No recent lymphatic malignancy, chronic lymphadenopathy reported yet Cardiovascular system review: See history of present illness. Respiratory system review: No recent chronic cough, hemoptysis, blood clots in the lungs reported. Moderate shortness of breath on exertion. Patient has also noted significant exercise intolerance. Gastrointestinal system review: Negative for any recent acute or chronic abdominal pain, hematemesis, melena, recent change in bowel habits. Genitourinary system review: No recent acute or chronic hematuria, flank pain, UTI etc. reported. Skin system review: Negative for any recent abnormal bruising, no rash, no pruritus reported. Patient has noted bilateral pedal edema. Neurologic: No prior history of strokes, mini strokes, seizure disorder. Psychologic: No history of major psychosis or major depression reported. Musculoskeletal: Minor aches and pains reported. No acute joint swelling reported. Endocrine: No recent polyuria, polydipsia, recent heat or cold intolerance. Physical Exam Vital Signs: Temp Pulse Resp BP Pulse Ox 99.1 F 91 20 108/81 98 02/27/17 00:46 02/27/17 09:00 02/27/17 07:46 02/27/17 09:00 02/27/17 07:46 Intake & Output 02/26/17 02/27/17 02/28/17 06:59 06:59 06:59 Intake Total 300 Output Total 1800 Balance -1500 Weight 101.2 kg Exam: GENERAL: well-nourished and in no acute distress. Alert and oriented x3 HEAD: Atraumatic, normocephalic. EYES: Pupils equal round and reactive to light, extraocular movements intact, sclera anicteric, conjunctiva are normal. ENT: TMs normal, nares patent, oropharynx clear without exudates. Moist mucous membranes. No oral ulcerations or bleeding gums noted NECK: supple without lymphadenopathy. Trachea is central. No cervical or axillary lymphadenopathy noted. Carotids are 2+, JVD 8-10 cm LUNGS: Respiration seems nonlabored, no significant accessory muscle action noted. Bibasilar fine crackles noted. No wheezes rales or rhonchi noted. No significant dullness noted on percussion. CHEST: Palpation of the chest wall shows no significant chest wall tenderness. No other significant abnormalities noted. HEART: [place] PATIENT SERVICES ASSISTANT, No PSH, 1/6 CORINNA aortic area, 1/6 lazcano systolic murmur mitral area, no rubs, no gallops. ABDOMEN: Soft, no significant tenderness appreciated, normoactive bowel sounds. No guarding, no rebound. No rigidity noted . No masses appreciated. EXTREMITIES: Pedal pulses are 1-2+, no calf tenderness noted. No clubbing or cyanosis. 2 + pedal edema noted NEUROLOGICAL: Focused neurological exam showed no significant neurologic deficit. Normal speech, no focal weakness appreciated. PSYCH: Normal mood, normal affect. Judgment and insight within normal limits. SKIN: No significant ecchymosis, ulcerations or signs of pruritus noted. Cellulitic rash noted both lower extremity. MUSCULOSKELETAL EXAM: No significant joint swelling noted. Results Laboratory Results: 02/27/17 03:20 02/27/17 03:20 02/26/17 02/26/17 02/27/17 21:00 21:00 03:20 WBC 10.3 10.5 RBC 4.57 4.47 Hgb 14.6 14.3 Hct 43.6 42.5 MCV 95 95 MCH 31.8 31.9 MCHC 33.4 33.6 RDW 14.3 H 13.9 Plt Count 199 208 Seg Neutrophils % 76.0 79.0 H Lymphocytes % 9.3 L 7.5 L Monocytes % 9.3 8.2 Eosinophils % 4.9 5.0 Basophils % 0.5 0.3 Absolute Neutrophils 7.8 8.3 H Absolute Lymphocytes 1.0 0.8 Absolute Monocytes 1.0 0.9 Absolute Eosinophils 0.5 0.5 Absolute Basophils 0.1 0.0 Sodium Potassium Chloride Carbon Dioxide Anion Gap BUN Creatinine Est GFR ( Amer) Est GFR (Non-Af Amer) Glucose Calcium TSH 1.26 Stool Occult Blood 02/27/17 02/27/17 03:20 10:10 WBC RBC Hgb Hct MCV MCH MCHC RDW Plt Count Seg Neutrophils % Lymphocytes % Monocytes % Eosinophils % Basophils % Absolute Neutrophils Absolute Lymphocytes Absolute Monocytes Absolute Eosinophils Absolute Basophils Sodium 136.7 L Potassium 3.9 Chloride 99 Carbon Dioxide 28 Anion Gap 10 BUN 3 L Creatinine 0.59 Est GFR ( Amer) > 60 Est GFR (Non-Af Amer) > 60 Glucose 144 H Calcium 9.1 TSH Stool Occult Blood POSITIVE 02/26/17 02/26/17 02/27/17 21:00 21:00 03:20 Creatine Kinase 73 CK-MB (CK-2) 1.91 2.24 Troponin I < 0.012 < 0.012 02/27/17 02/27/17 02/27/17 03:20 09:40 09:40 Creatine Kinase 100 115 CK-MB (CK-2) 2.25 Troponin I < 0.012 EKG Comments: Twelve-lead EKG this morning shows atrial fibrillation with rapid ventricular response. No acute ST-T wave changes noted. Admission EKG reviewed. No acute findings noted. Impressions: Facial Bones CT 02/26/17 14:13 IMPRESSION: Bilateral masses in the region of the bilateral parotid glands. More extensive on the left. Consider infectious inflammatory etiologies including sialadenitis. Low density areas within the masses most likely represent areas of necrosis/liquefaction. Abscess felt to be unlikely. Please note, neoplasm is also in the differential, to include lymphoma. Chest X-Ray 02/26/17 17:45 IMPRESSION: Suspect mild interstitial edema and vascular congestion. Assessment & Plan - Diagnosis (1) Atrial fibrillation with rapid ventricular response Is this a current diagnosis for this admission?: Yes (2) Congestive heart failure Is this a current diagnosis for this admission?: Yes (3) Peripheral edema Is this a current diagnosis for this admission?: Yes (4) Mass of parotid gland Is this a current diagnosis for this admission?: Yes - Notes Notes: Atrial fibrillation with rapid ventricular response: Continue Cardizem drip for rate control. May consider a switch to p.o. Cardizem at 60 mg p.o. every 6. If LVEF is noted to be low consider switch to metoprolol succinate. May also use digoxin for rate control if EF is noted to be low. Agree with obtaining CTA of the chest to rule out pulmonary embolism. CHF: Most likely precipitated by atrial fibrillation, in setting of either diastolic dysfunction or systolic dysfunction. Patient could also have valvular heart disease. data communications technician has been informed to do the test today. Further changes in medication will be based on 2D echo results. Peripheral edema: Most likely part of CHF but there may be significant contribution from venous insufficiency and dependency. Patient may need to be ruled out for DVT. Parotid gland mass: Continue with conservative management for the time being. Patient already has been evaluated by ENT surgeon. - Time Time Spent: 30 to 50 Minutes - CODE STATUS was discussed, patient remains full code. Surrogate decision-maker patient's brother by the name of Winston. Multiple medical problems were addressed. More than 50% of the time spent coordinating care, discussing management plans with involved caregivers. Management plans discussed with involved personnels. Medical decision making was of moderate to high complexity, patient's has multiple comorbidities. Medications reviewed and adjusted accordingly: Yes
--- NOTE | 2017-02-27 11:34 | EKG REPORT ---
SEVERITY:- ABNORMAL ECG - ATRIAL FIBRILLATION, V-RATE 62-105 VENTRICULAR PREMATURE COMPLEX PROBABLE ANTEROSEPTAL INFARCT, AGE INDETERM : Confirmed by: Shahzad Matamoros 27-Feb-2017 11:34:19
[2017-02-27] MEDS: METRONIDAZOLE 500 MG TABLET PO SCH ×3 (13:06→23:58)
--- NOTE | 2017-02-27 13:29 | XCELERA REPORT ---
[address] [address] Transthoracic Echocardiogram Report Name: DANIELA GARCIA JR Age: 61 yrs Gender: Male : 1955 Patient Status: Inpatient Patient Location: [address] [place] [address] Study Date: 02/27/2017 12:37 PM Height: 67 in Weight: 223 lb BSA: 2.1 m2 Procedure: A complete two-dimensional transthoracic echocardiogram was performed (2D, M-mode, spectral and color flow Doppler). The study was technically difficult with many images being suboptimal in quality. Reason For Study: afib Ordering Physician: SENTHIL CA Performed By: Dee Orozco Interpretation Summary The left ventricular ejection fraction is within normal limits. Doppler measurements suggest pseudonormalized left ventricular relaxation, which is associated with grade II/IV or mild to moderate diastolic dysfunction There is borderline concentric left ventricular hypertrophy. The left ventricle is grossly normal size. Wall motion cannot be accurately commented on, but no definite regional wall motion abnormalities noted. The right ventricular systolic function is normal. The right atrium is mildly dilated. The left atrium is severely dilated. There is a moderate amount of mitral regurgitation There is no mitral valve stenosis. No aortic regurgitation is present. There is no aortic valve stenosis There is a mild amount of tricuspid regurgitation There is mild to moderate pulmonary hypertension by echo Right ventricular systolic pressure is estimated to be elevated at 40- 50mmHg. Minimal pericardial effusion. MMode/2D Measurements & Calculations RVDd: 3.4 cm LVIDd: 5.2 cm FS: 36.2 % MV Diam: IVSd: 1.0 cm LVIDs: 3.3 cm EDV(Teich): 2.4 cm LVPWd: 0.98 cm 128.8 ml ESV(Teich): 44.4 ml EF(Teich): 65.5 % Ao root diam: LVOT diam: 2.5 cm LA A2Cs: 41.5 cm2LA A4Cs: 3.7 cm LVOT area: 4.8 cm2 35.9 cm2 Ao root area: 10.8 cm2 LA dimension: 5.3 cm LA length: 7.4 cm LA Vol Index (BP): LA Volume: 170.4 ml 80.5 ml/m2 Doppler Measurements & Calculations MV E max tarik: MV area (1 diam): MV P1/2t max tarik: Ao V2 max: 172.1 cm/sec 4.7 cm2 172.1 cm/sec 174.5 cm/sec MV A max tarik: MV Flow area MV P1/2t: 62.0 msec Ao max P.1 cm/sec MVA(P1/2t): 3.6 cm2 12.2 mmHg MV E/A: 3.2 (1diam): 4.7 cm2 MV dec slope: JORDYN(V,D): 1.9 cm2 813.8 cm/sec2 LV V1 max PG: MR max tarik: PA V2 max: TR max tarik: 1.9 mmHg 439.2 cm/sec 78.0 cm/sec 289.9 cm/sec LV V1 max: MR max PG: PA max P.4 mmHg TR max P.8 cm/sec 77.2 mmHg 33.6 mmHg LV dP/dt: 1298 mmHg/s Left Ventricle The left ventricle is grossly normal size. There is borderline concentric left ventricular hypertrophy. The left ventricular ejection fraction is within normal limits. Doppler measurements suggest pseudonormalized left ventricular relaxation, which is associated with grade II/IV or mild to moderate diastolic dysfunction. Wall motion cannot be accurately commented on, but no definite regional wall motion abnormalities noted. Right Ventricle The right ventricle is grossly normal size. There is normal right ventricular wall thickness. The right ventricular systolic function is normal. Atria The right atrium is mildly dilated. The left atrium is severely dilated. Interarterial septum not well visualized and not well dopplered. Cannot comment on ASD/PFO presence. Mitral Valve The mitral valve leaflets are sclerotic, but show no functional abnormalities. There is no mitral valve stenosis. There is a moderate amount of mitral regurgitation. Aortic Valve The aortic valve is not well visualized secondary to technical limitations. There is no aortic valve stenosis. No aortic regurgitation is present. Tricuspid Valve The tricuspid valve is not well visualized, but is grossly normal. There is no tricuspid stenosis. There is a mild amount of tricuspid regurgitation. There is mild to moderate pulmonary hypertension by echo. Right ventricular systolic pressure is estimated to be elevated at 40-50mmHg. Pulmonic Valve The pulmonic valve is not well visualized. Great Vessels The aortic root is not well visualized. The inferior vena cava appeared normal and decreased > 50% with respiration (RAP 5-10 mmHg). Effusions Minimal pericardial effusion. : SENTHIL CA > Shahzad Matamoros
[2017-02-27] MEDS ORDERED: DILTIAZEM HCL/D5W 125 MG/125 ML RTUINJ IV PRN (14:12)
[2017-02-27] MEDS ORDERED: DILTIAZEM HCL/D5W 125 MG/125 ML RTUINJ IV ONE (14:13)
[2017-02-27] MEDS: HEPARIN SODIUM,PORCINE/D5W 25,000 UNIT/250 ML RTUINJ IV PRN (14:43)
[2017-02-27] MEDS ORDERED: DILTIAZEM HCL 60 MG TABLET PO ONE (15:00)
--- NOTE | 2017-02-27 19:11 | RADIOLOGY REPORT (SQ) ---
EXAM DESCRIPTION: CTA CHEST COMPLETED DATE/TIME: 02/27/2017 6:50 pm REASON FOR STUDY: acute chf COMPARISON: None. TECHNIQUE: CT scan of the chest performed using helical scanning technique with dynamic intravenous contrast injection. Images reviewed with lung, soft tissue and bone windows. Reconstructed coronal and sagittal MPR images reviewed. Additional 3 dimensional post-processing performed to develop Maximal Intensity Projection images ([place] P). All images stored on PACS. All CT scanners at this facility use dose modulation, iterative reconstruction, and/or weight based d osing when appropriate to reduce radiation dose to as low as reasonably achievable (ALARA). [facility]: Dose Right [facility]: CareDose [facility]: Dose Right [facility]: Teradose 4D [facility]: Razume CONTRAST TYPE AND DOSE: contrast/concentration: Isovue 370.00 mg/ml; Total Contrast Delivered: 114.8 ml; Total Saline Delivered: 187.0 ml Contrast bolus optimized for the pulmonary arteries. Not diagnostic for the aorta. RENAL FUNCTION: BUN 3 creatinine 0.59. RADIATION DOSE: Up-to-date CT equipment and radiation dose reduction techniques were employed. CTDIv ol: 19.8 - 27.0 mGy. DLP: 1847 mGy-cm. . LIMITATIONS: None. FINDINGS: LUNGS AND PLEURA: No masses, infiltrates, pneumothorax. Mild atelectasis or scarring in t he lingula. No pleural effusions, calcifications. AORTA AND GREAT VESSELS: No aneurysm. Contrast bolus not optimized for the aorta. HEART: No pericardial effusion. No significant coronary artery calcifications. PULMONARY ARTERIES: No emboli visualized in the main pulmonary arteries or the segmental branches. HILAR AND MEDIASTINAL STRUCTURES: No identified masses or abnormal nodes. HARDWARE: None in the chest. UPPER ABDOMEN: No significant findings. Limited exam. THYROID AND OTHER SOFT TISSUES: No masses. No adenopathy. BONES: No acute or significant finding. 3D MIPS: Confirm above findings. OTHER: No other significant finding. IMPRESSION: NORMAL CTA OF THE CHEST. NO PULMONARY EMBOLI. COMMENT: Quality ID # [id number]: Final reports with documentation of one or more dose reduction techniques (e.g., Automated exposure control, adjustment of the mA and/or kV according to patient size, use of iterative reconstruction technique) TECHNICAL DOCUMENTATION: JOB ID: [id number] [employer]- All Rights Reserved
[2017-02-28] MEDS: DILTIAZEM HCL 60 MG TABLET PO SCH ×5 (00:01→23:32)
[2017-02-28 03:44] LABS: APPEARANCE,URINE CLEAR; BILIRUBIN,URINE NEGATIVE (NEGATIVE); GLUCOSE, URINE NEGATIVE (NEGATIVE); KETONES,URINE TRACE mg/dL (NEGATIVE); LEUKOCYTE ESTERASE,URINE NEGATIVE (NEGATIVE); NITRITE,URINE NEGATIVE (NEGATIVE); PROTEIN,URINE NEGATIVE (NEGATIVE); URINE SPECIFIC GRAVITY 1.034; UROBILINOGEN,URINE NEGATIVE mg/dL (<2.0)
[2017-02-28] MEDS: METRONIDAZOLE 500 MG TABLET PO SCH ×4 (05:59→23:33)
[2017-02-28 06:26] LABS: HEMATOCRIT 38.2 % (37.9-51.0); HEMOGLOBIN 13.1 g/dL (13.5-17.0); HGB HCT DIFFERENCE 1.1; MEAN CORPUSCULAR HEMOGLOBIN 32.4 pg (27.0-33.4); MEAN CORPUSCULAR HGB CONC 34.3 g/dL (32.0-36.0); MEAN CORPUSCULAR VOLUME 94 fl (80-97); RED BLOOD COUNT 4.05 10^6/uL (4.35-5.55); RED CELL DISTRIBUTION WIDTH 14.2 % (11.5-14.0); WHITE BLOOD COUNT 9.2 10^3/uL (4.0-10.5)
[2017-02-28 06:49] LABS: ANION GAP 9 (5-19); BLOOD UREA NITROGEN 3 mg/dL (7-20); CALCIUM 8.9 mg/dL (8.4-10.2); CARBON DIOXIDE 28 mmol/L (22-30); CHLORIDE 96 mmol/L (98-107); CREATININE RESULT 0.58 mg/dL (0.52-1.25); GLUCOSE 141 mg/dL (75-110); POTASSIUM 3.6 mmol/L (3.6-5.0); SODIUM 132.6 mmol/L (137-145)
[2017-02-28] MEDS: HEPARIN SODIUM,PORCINE/D5W 25,000 UNIT/250 ML RTUINJ IV PRN ×2 (06:56→22:15)
[2017-02-28] MEDS: LEVALBUTEROL HCL NEB 1.25 MG/3 ML AMPUL NEB SCH (08:30)
[2017-02-28] MEDS: IPRATROPIUM BROMIDE 0.02% NEB 0.5 MG/2.5 ML AMPUL NEB SCH (08:30)
[2017-02-28] MEDS: DOCUSATE SODIUM 100 MG CAPSULE PO SCH ×2 (09:26→16:26)
[2017-02-28] MEDS: FUROSEMIDE INJ/PF 40 MG/4 ML SDV IV SCH (12:35)
--- NOTE | 2017-02-28 12:43 | PDOC PROGRESS REPORT ---
Subjective Progress Note for:: 02/28/17 Subjective:: Patient seems to be doing better with gradual improvement. Edema is improved. Dyspnea is improved. Pt is denying any chest arm or neck discomfort. Patient denying any PND, orthopnea. Patient denied any sustained palpitations, dizziness, syncope, near syncope. Patient denying any fever chills. Patient denying any other significant discomfort. Patient is maintaining chronic atrial fibrillation, heart rate well controlled. Review of systems: Rest review of systems negative. Medications: Medications have been reviewed. Physical Exam Vital Signs: Temp Pulse Resp BP Pulse Ox 97.6 F 107 H 18 119/73 94 02/28/17 11:13 02/28/17 11:13 02/28/17 11:13 02/28/17 11:13 02/28/17 11:13 Intake & Output 02/27/17 02/28/17 03/01/17 06:59 06:59 06:59 Intake Total 300 2243 Output Total 1800 2200 Balance -1500 43 Weight 101.2 kg 99.4 kg Exam: GENERAL: well-nourished and in no acute distress. Alert and oriented x3 HEAD: Atraumatic, normocephalic. EYES: Pupils equal round and reactive to light, extraocular movements intact, sclera anicteric, conjunctiva are normal. ENT: TMs normal, nares patent, oropharynx clear without exudates. Moist mucous membranes. No oral ulcerations or bleeding gums noted NECK: supple without lymphadenopathy. Trachea is central. No cervical or axillary lymphadenopathy noted. Carotids are 2+, JVD 8-10 cm LUNGS: Respiration seems nonlabored, no significant accessory muscle action noted. Bibasilar fine crackles noted. No wheezes rales or rhonchi noted. No significant dullness noted on percussion. CHEST: Palpation of the chest wall shows no significant chest wall tenderness. No other significant abnormalities noted. HEART: [place] DIRECTOR OF STATE, No PSH, 1/6 CORINNA aortic area, 1/6 lazcano systolic murmur mitral area, no rubs, no gallops. ABDOMEN: Soft, no significant tenderness appreciated, normoactive bowel sounds. No guarding, no rebound. No rigidity noted . No masses appreciated. EXTREMITIES: Pedal pulses are 1-2+, no calf tenderness noted. No clubbing or cyanosis. 2 + pedal edema noted NEUROLOGICAL: Focused neurological exam showed no significant neurologic deficit. Normal speech, no focal weakness appreciated. Patient seems to have upper motor neuron right facial paresis. Some flattening of right side face with twisting of angle of mouth to the left side. And right palpebral fissure seems bigger. PSYCH: Normal mood, normal affect. Judgment and insight within normal limits. SKIN: No significant ecchymosis, ulcerations or signs of pruritus noted. Cellulitic rash noted both lower extremity. MUSCULOSKELETAL EXAM: No significant joint swelling noted. Results Laboratory Results: 02/28/17 05:56 02/28/17 05:56 02/28/17 02/28/17 02/28/17 03:26 05:56 05:56 WBC 9.2 RBC 4.05 L Hgb 13.1 L Hct 38.2 MCV 94 MCH 32.4 MCHC 34.3 RDW 14.2 H Plt Count 177 Sodium 132.6 L Potassium 3.6 Chloride 96 L Carbon Dioxide 28 Anion Gap 9 BUN 3 L Creatinine 0.58 Est GFR ( Amer) > 60 Est GFR (Non-Af Amer) > 60 Glucose 141 H Calcium 8.9 Urine Color YELLOW Urine Appearance CLEAR Urine pH 6.0 Ur Specific [place] 1.034 Urine Protein NEGATIVE Urine Glucose (UA) NEGATIVE Urine Ketones TRACE H Urine Blood NEGATIVE Urine Nitrite NEGATIVE Ur Leukocyte Esterase NEGATIVE Urine RBC (Auto) 1 Stool Occult Blood 02/28/17 10:00 WBC RBC Hgb Hct MCV MCH MCHC RDW Plt Count Sodium Potassium Chloride Carbon Dioxide Anion Gap BUN Creatinine Est GFR ( Amer) Est GFR (Non-Af Amer) Glucose Calcium Urine Color Urine Appearance Urine pH Ur Specific [place] Urine Protein Urine Glucose (UA) Urine Ketones Urine Blood Urine Nitrite Ur Leukocyte Esterase Urine RBC (Auto) Stool Occult Blood POSITIVE 02/26/17 02/26/17 02/27/17 21:00 21:00 03:20 Creatine Kinase 73 CK-MB (CK-2) 1.91 2.24 Troponin I < 0.012 < 0.012 02/27/17 02/27/17 02/27/17 03:20 09:40 09:40 Creatine Kinase 100 115 CK-MB (CK-2) 2.25 Troponin I < 0.012 EKG Comments: Showed atrial fibrillation with controlled ventricular response. Impressions: Facial Bones CT 02/26/17 14:13 IMPRESSION: Bilateral masses in the region of the bilateral parotid glands. More extensive on the left. Consider infectious inflammatory etiologies including sialadenitis. Low density areas within the masses most likely represent areas of necrosis/liquefaction. Abscess felt to be unlikely. Please note, neoplasm is also in the differential, to include lymphoma. Chest X-Ray 02/26/17 17:45 IMPRESSION: Suspect mild interstitial edema and vascular congestion. Chest/Abdomen CTA 02/27/17 00:00 IMPRESSION: NORMAL CTA OF THE CHEST. NO PULMONARY EMBOLI. Assessment & Plan - Diagnosis (1) Atrial fibrillation with rapid ventricular response Is this a current diagnosis for this admission?: Yes (2) Congestive heart failure Is this a current diagnosis for this admission?: Yes (3) Peripheral edema Is this a current diagnosis for this admission?: Yes (4) Mass of parotid gland Is this a current diagnosis for this admission?: Yes (5) Mitral regurgitation Qualifiers: Cardiac valve disease etiology: nonrheumatic Qualified Code(s): I34.0 - Nonrheumatic mitral (valve) insufficiency Is this a current diagnosis for this admission?: Yes - Notes Notes: Atrial fibrillation with rapid ventricular response: Continue p.o. Cardizem at 60 mg p.o. every 6. LVEF noted to be relatively well-preserved. Recommend switch to new oral anticoagulant. Consider 12 hours of overlap while switching. CHF: Most likely precipitated by atrial fibrillation, in setting of either diastolic dysfunction or systolic dysfunction. Patient could also have valvular heart disease. Would start patient on baseline p.o. Lasix. Peripheral edema: Most likely part of CHF but there may be significant contribution from venous insufficiency and dependency. Patient may need to be ruled out for DVT. Parotid gland mass: Continue with conservative management for the time being. Patient already has been evaluated by ENT surgeon. Mitral regurgitation: Moderate noted on echocardiogram. Need to be followed in the office as periodic repeat echocardiogram would be needed for timing of mitral valve intervention if needed. No endocarditis prophylaxis indicated at this point. - Time Time with patient: Greater than 35 minutes - CODE STATUS was discussed, patient remains full code. Surrogate decision-maker unchanged. Multiple medical problems were addressed. More than 50% of the time spent coordinating care, discussing management plans with involved caregivers. Management plans discussed with involved personnels. Medical decision making was of moderate to high complexity, patient's has multiple comorbidities. Medications reviewed and adjusted accordingly: Yes
--- NOTE | 2017-02-28 13:37 | PDOC PROGRESS REPORT ---
Subjective Progress Note for:: 02/28/17 Subjective:: 61-year-old gentleman who presented with H fibrillation with rapid ventricular rate and resulting congestive heart failure. The patient had been seen as an outpatient for parotid gland masses had been biopsied and treated with antibiotics. The patient was started on diltiazem drip with control of heart rate. He has been evaluated by cardiology and an echocardiogram shows diastolic dysfunction. Patient is now rate controlled and has been switched over to p.o. diltiazem but is still on IV Lasix. Physical Exam Vital Signs: Temp Pulse Resp BP Pulse Ox 97.6 F 107 H 18 119/73 94 02/28/17 11:13 02/28/17 11:13 02/28/17 11:13 02/28/17 11:13 02/28/17 11:13 Intake & Output 02/27/17 02/28/17 03/01/17 06:59 06:59 06:59 Intake Total 300 2243 300 Output Total 1800 2200 200 Balance -1500 43 100 Weight 101.2 kg 99.4 kg General appearance: PRESENT: no acute distress Eye exam: PRESENT: conjunctiva pink, scleral icterus Mouth exam: PRESENT: moist, tongue midline Neck exam: ABSENT: JVD Respiratory exam: PRESENT: clear to auscultation phil. ABSENT: rales, rhonchi, wheezes Cardiovascular exam: PRESENT: irregular rhythm. ABSENT: diastolic murmur, rubs , systolic murmur GI/Abdominal exam: PRESENT: normal bowel sounds, soft. ABSENT: distended, guarding, mass, organolmegaly, rebound, tenderness Extremities exam: PRESENT: pedal edema, +1 edema. ABSENT: calf tenderness, clubbing Neurological exam: PRESENT: alert, awake, oriented to person, oriented to place , oriented to time, oriented to situation, CN II-XII grossly intact. ABSENT: motor sensory deficit Psychiatric exam: PRESENT: appropriate affect Skin exam: PRESENT: dry, intact, warm. ABSENT: cyanosis, rash Results Laboratory Results: 02/28/17 05:56 02/28/17 05:56 02/28/17 02/28/17 02/28/17 03:26 05:56 05:56 WBC 9.2 RBC 4.05 L Hgb 13.1 L Hct 38.2 MCV 94 MCH 32.4 MCHC 34.3 RDW 14.2 H Plt Count 177 Sodium 132.6 L Potassium 3.6 Chloride 96 L Carbon Dioxide 28 Anion Gap 9 BUN 3 L Creatinine 0.58 Est GFR ( Amer) > 60 Est GFR (Non-Af Amer) > 60 Glucose 141 H Calcium 8.9 Urine Color YELLOW Urine Appearance CLEAR Urine pH 6.0 Ur Specific [place] 1.034 Urine Protein NEGATIVE Urine Glucose (UA) NEGATIVE Urine Ketones TRACE H Urine Blood NEGATIVE Urine Nitrite NEGATIVE Ur Leukocyte Esterase NEGATIVE Urine RBC (Auto) 1 Stool Occult Blood 02/28/17 10:00 WBC RBC Hgb Hct MCV MCH MCHC RDW Plt Count Sodium Potassium Chloride Carbon Dioxide Anion Gap BUN Creatinine Est GFR ( Amer) Est GFR (Non-Af Amer) Glucose Calcium Urine Color Urine Appearance Urine pH Ur Specific [place] Urine Protein Urine Glucose (UA) Urine Ketones Urine Blood Urine Nitrite Ur Leukocyte Esterase Urine RBC (Auto) Stool Occult Blood POSITIVE 02/26/17 02/26/17 02/27/17 21:00 21:00 03:20 Creatine Kinase 73 CK-MB (CK-2) 1.91 2.24 Troponin I < 0.012 < 0.012 02/27/17 02/27/17 02/27/17 03:20 09:40 09:40 Creatine Kinase 100 115 CK-MB (CK-2) 2.25 Troponin I < 0.012 Impressions: Facial Bones CT 02/26/17 14:13 IMPRESSION: Bilateral masses in the region of the bilateral parotid glands. More extensive on the left. Consider infectious inflammatory etiologies including sialadenitis. Low density areas within the masses most likely represent areas of necrosis/liquefaction. Abscess felt to be unlikely. Please note, neoplasm is also in the differential, to include lymphoma. Chest X-Ray 02/26/17 17:45 IMPRESSION: Suspect mild interstitial edema and vascular congestion. Chest/Abdomen CTA 02/27/17 00:00 IMPRESSION: NORMAL CTA OF THE CHEST. NO PULMONARY EMBOLI. Assessment & Plan - Diagnosis (1) Atrial fibrillation Qualifiers: Atrial fibrillation type: unspecified Qualified Code(s): I48.91 - Unspecified atrial fibrillation Is this a current diagnosis for this admission?: Yes Plan: Patient is currently rate controlled on the diltiazem. Echocardiogram shows diastolic dysfunction. The patient had a CT angiogram of the lungs that is negative for pulmonary embolism. The patient currently is on heparin drip. Patient will need to be switched over to oral anticoagulation (2) Congestive heart failure Is this a current diagnosis for this admission?: Yes Plan: Patient has diastolic congestive heart failure. This continues to improve with IV Lasix. If he continues to improve we can probably be switched over to p.o. Lasix and possibly discharged home tomorrow. Echocardiogram shows diastolic dysfunction. (3) Mass of parotid gland Is this a current diagnosis for this admission?: Yes Plan: he was recently on clindamycin and Augmentin. The patient now has diarrhea. C. difficile was negative. We will continue to Flagyl for now. (4) C. difficile colitis Is this a current diagnosis for this admission?: Yes Plan: The patient was negative for C. difficile colitis. - Time Time Spent with patient: 25-34 minutes - Inpatient Certification Medical Necessity: Need Close Monitoring Due to Risk of Patient Decompensation - Plan Summary Plan Summary: If his congestive heart failure continues to improve we can probably be discharged home tomorrow.
[2017-03-01 05:34] LABS: ABSOLUTE EOSINOPHILS # (AUTO) 0.7 10^3/uL (0.0-0.6); ABSOLUTE LYMPHOCYTES (AUTO) 0.7 10^3/uL (0.5-4.7); ABSOLUTE MONOCYTES (AUTO) 1.1 10^3/uL (0.1-1.4); BASOPHILS % (AUTO) 0.4 % (0-2); EOSINOPHILS % (AUTO) 7.4 % (0-6); HEMATOCRIT 37.8 % (37.9-51.0); HEMOGLOBIN 13.1 g/dL (13.5-17.0); HGB HCT DIFFERENCE 1.5; LYMPHOCYTES % (AUTO) 7.8 % (13-45); MEAN CORPUSCULAR HEMOGLOBIN 32.1 pg (27.0-33.4); MEAN CORPUSCULAR HGB CONC 34.7 g/dL (32.0-36.0); MEAN CORPUSCULAR VOLUME 92 fl (80-97); RED BLOOD COUNT 4.09 10^6/uL (4.35-5.55); RED CELL DISTRIBUTION WIDTH 14.1 % (11.5-14.0); SEGMENTED NEUTROPHILS % (AUTO) 73.4 % (42-78); WHITE BLOOD COUNT 9.5 10^3/uL (4.0-10.5)
[2017-03-01 05:49] LABS: ANION GAP 9 (5-19); BLOOD UREA NITROGEN 4 mg/dL (7-20); CALCIUM 8.7 mg/dL (8.4-10.2); CARBON DIOXIDE 30 mmol/L (22-30); CHLORIDE 93 mmol/L (98-107); GLUCOSE 140 mg/dL (75-110); POTASSIUM 3.7 mmol/L (3.6-5.0); SODIUM 131.5 mmol/L (137-145)
[2017-03-01] MEDS: METRONIDAZOLE 500 MG TABLET PO SCH ×4 (05:54→23:35)
[2017-03-01] MEDS: DILTIAZEM HCL 60 MG TABLET PO SCH ×4 (05:56→23:32)
[2017-03-01 05:59] LABS: PARTIAL THROMBOPLASTIN TIME 52.4 SEC (23.5-35.8)
[2017-03-01] MEDS: DOCUSATE SODIUM 100 MG CAPSULE PO SCH ×2 (10:29→17:45)
[2017-03-01] MEDS ORDERED: REGADENOSON INJ 0.4 MG/5 ML DISP.SYRIN IV ONE (10:57)
[2017-03-01] MEDS: FUROSEMIDE INJ/PF 40 MG/4 ML SDV IV SCH (11:47)
--- NOTE | 2017-03-01 11:52 | PDOC PROGRESS REPORT ---
Subjective Progress Note for:: 03/01/17 Subjective:: Patient improving. Shortness of breath better. Lower extremity edema is less. Denies any PND orthopnea. Denies any chest pain chills nor fever. Lower extremity redness is likewise improving. Physical Exam Vital Signs: Temp Pulse Resp BP Pulse Ox 98.3 F 66 18 114/58 L 96 03/01/17 08:01 03/01/17 08:01 03/01/17 08:01 03/01/17 08:01 03/01/17 08:01 Intake & Output 02/28/17 03/01/17 03/02/17 06:59 06:59 06:59 Intake Total 2243 2187 Output Total 2200 2155 Balance 43 32 Weight 99.4 kg 99.8 kg General appearance: PRESENT: no acute distress, cooperative Head exam: PRESENT: normocephalic Eye exam: PRESENT: EOMI Mouth exam: PRESENT: moist, neck supple Neck exam: ABSENT: JVD Respiratory exam: PRESENT: decreased breath sounds - Bilateral, unlabored. ABSENT: wheezes Cardiovascular exam: PRESENT: irregular rhythm. ABSENT: gallop GI/Abdominal exam: PRESENT: normal bowel sounds, soft. ABSENT: distended, tenderness Extremities exam: PRESENT: +1 edema Neurological exam: PRESENT: alert, awake, oriented to situation Skin exam: PRESENT: dry, warm. ABSENT: cyanosis Results Laboratory Results: 03/01/17 05:00 03/01/17 05:00 03/01/17 03/01/17 05:00 05:00 WBC 9.5 RBC 4.09 L Hgb 13.1 L Hct 37.8 L MCV 92 MCH 32.1 MCHC 34.7 RDW 14.1 H Plt Count 181 Seg Neutrophils % 73.4 Lymphocytes % 7.8 L Monocytes % 11.0 Eosinophils % 7.4 H Basophils % 0.4 Absolute Neutrophils 7.0 Absolute Lymphocytes 0.7 Absolute Monocytes 1.1 Absolute Eosinophils 0.7 H Absolute Basophils 0.0 Sodium 131.5 L Potassium 3.7 Chloride 93 L Carbon Dioxide 30 Anion Gap 9 BUN 4 L Creatinine 0.60 Est GFR ( Amer) > 60 Est GFR (Non-Af Amer) > 60 Glucose 140 H Calcium 8.7 02/26/17 02/26/17 02/27/17 21:00 21:00 03:20 Creatine Kinase 73 CK-MB (CK-2) 1.91 2.24 Troponin I < 0.012 < 0.012 02/27/17 02/27/17 02/27/17 03:20 09:40 09:40 Creatine Kinase 100 115 CK-MB (CK-2) 2.25 Troponin I < 0.012 Impressions: Facial Bones CT 02/26/17 14:13 IMPRESSION: Bilateral masses in the region of the bilateral parotid glands. More extensive on the left. Consider infectious inflammatory etiologies including sialadenitis. Low density areas within the masses most likely represent areas of necrosis/liquefaction. Abscess felt to be unlikely. Please note, neoplasm is also in the differential, to include lymphoma. Chest X-Ray 02/26/17 17:45 IMPRESSION: Suspect mild interstitial edema and vascular congestion. Chest/Abdomen CTA 02/27/17 00:00 IMPRESSION: NORMAL CTA OF THE CHEST. NO PULMONARY EMBOLI. Assessment & Plan - Diagnosis (1) Atrial fibrillation with rapid ventricular response Is this a current diagnosis for this admission?: Yes (2) Congestive heart failure Qualifiers: Congestive heart failure type: diastolic Congestive heart failure chronicity: acute Qualified Code(s): I50.31 - Acute diastolic (congestive) heart failure Is this a current diagnosis for this admission?: Yes (3) Mass of parotid gland Is this a current diagnosis for this admission?: Yes (4) Peripheral edema Is this a current diagnosis for this admission?: Yes (5) Morbid obesity Is this a current diagnosis for this admission?: Yes (6) Heme positive stool Is this a current diagnosis for this admission?: Yes - Time Time Spent with patient: 25-34 minutes - Plan Summary Plan Summary: Stress test for today. We will recheck hemoglobin hematocrit. Continue current medications. We will discuss with cardiology regarding long-term anticoagulation. Continue other medication and supportive care. Patient reports his diarrhea has already resolved.
--- NOTE | 2017-03-01 13:17 | PROGRESS NOTE E ---
Progress Note NAME: DANIELA GARCIA : 1955 AGE: 61Y DATE: 03/01/2017 ROOM: 317 SUBJECTIVE: The patient continues to be in atrial fibrillation. He denies any chest pain or discomfort. His shortness of breath is much improved. There is no PND or orthopnea. There is no rapid ventricular response with the atrial fibrillation. Heart rate is well controlled. There are no TIA or CVA symptoms. Note that the patient is on heparin drip. Needs a GI workup since Hemoccult stool is positive, hence needs a GI workup prior to putting him on chronic anticoagulation therapy. OBJECTIVE: GENERAL: On examination the patient is moderately obese but well groomed in no acute distress. VITAL SIGNS: He is afebrile with a temperature of 98.3 degrees Fahrenheit, pulse is 66 beats per minute, blood pressure is 114/58, respirations are 18 per minute, 02 saturations are 96% on room air. HEENT: Head is atraumatic, normocephalic. Eyes: Pupils are equal, round, regular and reactive to light and accommodation. Extraocular movements are normal. There is no conjunctival pallor. There is no scleral icterus. ENT is negative. NECK: Supple. There is no lymphadenopathy. Trachea is central. There are no cervical or axillary lymphadenopathy noted. Carotids are 2+ without any bruits. JVD is not elevated. LUNGS: Show diminished air entry and prolonged expiration with a few scattered rhonchi. There is no wheezing or rales. HEART: S1 and S2 are heard. There is no S3 gallop. There is no S4 gallop. S1 is variable intensity. There is murmur of mitral regurgitation present. There is no rub. ABDOMEN: Soft, nontender, and obese. There is no hepatosplenomegaly. Bowel sounds are well heard. There are no masses appreciated. EXTREMITIES: Pedal pulses are 1+ with there being no bruits over the femorals. Femorals are slightly diminished. There is 1+ peripheral edema noted. There is no clubbing or cyanosis. CENTRAL NERVOUS SYSTEM: The patient is conscious, awake, alert, oriented x3 with no focal deficits. PSYCHIATRIC: The patient's judgment and insight are intact. His affect is normal. DIAGNOSTICS: Note that the patient had a stress Lexiscan Cardiolite stress test today. His 24-hour intake is 2187 mL. Output is 2155 mL. Stool for occult blood was positive on 02/27 and 02/28. His PTT is 52.4. His INR is 1.01. Pro time is 14. The patient's sodium is 131.5, potassium 3.7, chloride 92, CO2 of 30. The patient's BUN is 4, creatinine is 0.64. GFR is greater than 60. Glucose is 140. His calcium is 8.7. The patient's white count is 9500, hemoglobin is 13.1, hematocrit of 37.8, platelet count is 181,000. Note that the patient's stress test shows *------* ischemia. Cannot exclude a small area of OH in the *------* apex. This will be discussed with the patient. IMPRESSION: 1. ATRIAL FIBRILLATION NOW WITH CONTROLLED VENTRICULAR RESPONSE. 2. CONGESTIVE HEART FAILURE, AT PRESENT STABLE. 3. PERIPHERAL EDEMA. This is the current diagnosis. Much improved but still there is 1+ edema present. 4. MASS OF THE PAROTID GLAND. Being treated conservatively. Patient is being seen by ENT. 5. NONTRAUMATIC MITRAL VALVE INSUFFICIENCY. Continue current treatment. 6. OCCULT POSITIVE STOOLS. In view of this, the patient needs a GI workup prior to starting the patient on any chronic anticoagulation therapy. PLAN: The peripheral edema is secondary to CHF secondary to the patient have mitral regurgitation and also diastolic dysfunction. Note that the patient's mitral regurgitation is moderate on echocardiogram. Needs to be followed in the office at a later period within 3 months to see the progression of mitral valve disease. Note 30 minutes spent on this patient. Also the patient's stress test was discussed with the patient and others attending with the case. More than 50% of the time was spent on direct patient care and also coordinating management of the patient with other caregiving providers. Decision making is highly complex in view of the patient's occult positive stool and the need for chronic anticoagulation in view of the patient's atrial fibrillation. DICTATING PHYSICIAN: STANISLAV MONTILLA M.D. [id number] PHY#: [id number] ID: [id number] JOB#: [id number] ACCT: [id number] cc: >
[2017-03-01] MEDS: HEPARIN SODIUM,PORCINE/D5W 25,000 UNIT/250 ML RTUINJ IV PRN (14:08)
--- NOTE | 2017-03-01 19:50 | DRAGON STRESS TEST REPORT ---
Intravenous Lexiscan Cardiolite stress test using single photon emmision computerized tomography. Date of procedure: 03/01/2017. Ordering Provider: Dr. Jeremias Kilgore. Patient' s status: Inpatient Indication: CHF / ATRIAL FIBRILLATION. Coronary risk factors: Age, CHF, and atrial fibrillation. Resting EKG: Atrial fibrillation. Poor R-wave progression leads V1 to V4. Stress EKG[ No changes of ischemia. The patient had no chest pain or discomfort and there were no ventricular arrhythmias seen. Reason for termination: Protocol. Conclusions: Normal EKG and hemodynamic response to IV Lexiscan. Nuclear data: At rest the patient was given 14.46 millicuries of technetium 99m sestamibi injected intravenously. As per protocol rest non gated SPECT images were obtained. Subsequently the patient was given intravenous Lexiscan at a dose of 0.4 mg in 5 mL intravenously, followed by flush with normal saline. Subsequently the stress dose of 42.8 millicuries of technetium 99m sestamibi was injected intravenously. As per protocol stress gated images were obtained. Nuclear interpretation: Review of images showed that there is a small area of the left ventricular apex which has a small area of perfusion defect in both the rest and stress images. This small area has decreased motion contraction and thickening by gated study The rest of the segments of the myocardium had normal perfusion at rest, and normal perfusion post stress with IV Lexiscan. The rest of the segments of the myocardium had normal thickening by gated study. There seems to be some mild global hypokinesis. T. I D. ratio was normal at 1.12. Computer read rest, and stress left ventricular ejection fraction were 47 %, and an 43 %, respectively. Conclusion: 1. There is no scintigraphic evidence of Lexiscan induced myocardial ischemia. 2. There is a small area of scintigraphic evidence of myocardial infarction/ scar involving the left ventricular apex.. Recommendations: 1.Aggressive risk factor modification, and treating the underlying co- morbidities. 2. Please check echo for left ventricular ejection fraction correlation. MTDD
[2017-03-02] MEDS: HEPARIN SODIUM,PORCINE/D5W 25,000 UNIT/250 ML RTUINJ IV PRN ×2 (02:33→16:29)
[2017-03-02 04:48] LABS: HEMATOCRIT 39.7 % (37.9-51.0); HEMOGLOBIN 13.7 g/dL (13.5-17.0); HGB HCT DIFFERENCE 1.4; MEAN CORPUSCULAR HEMOGLOBIN 32.3 pg (27.0-33.4); MEAN CORPUSCULAR HGB CONC 34.5 g/dL (32.0-36.0); MEAN CORPUSCULAR VOLUME 94 fl (80-97); RED BLOOD COUNT 4.25 10^6/uL (4.35-5.55); RED CELL DISTRIBUTION WIDTH 14.1 % (11.5-14.0); WHITE BLOOD COUNT 8.6 10^3/uL (4.0-10.5)
[2017-03-02] MEDS: METRONIDAZOLE 500 MG TABLET PO SCH ×4 (05:31→23:21)
[2017-03-02] MEDS: DILTIAZEM HCL 60 MG TABLET PO SCH ×4 (05:31→23:20)
[2017-03-02] MEDS: FUROSEMIDE INJ/PF 40 MG/4 ML SDV IV SCH (09:14)
[2017-03-02] MEDS: DOCUSATE SODIUM 100 MG CAPSULE PO SCH ×2 (09:14→17:34)
--- NOTE | 2017-03-02 11:46 | PDOC PROGRESS REPORT ---
Subjective Progress Note for:: 03/02/17 Subjective:: Patient seems to be doing better with gradual improvement. Edema is improved. Dyspnea is improved. Pt is denying any chest arm or neck discomfort. Patient denying any PND, orthopnea. Patient denied any sustained palpitations, dizziness, syncope, near syncope. Patient denying any fever chills. Patient denying any other significant discomfort. Patient had a nuclear stress test. These results were discussed with the patient. Echocardiogram results were also discussed. Patient was noted to have moderate mitral regurgitation. Discussed that she would need continued cardiology follow-up. Patient claims that he is undergoing some upper GI and lower GI endoscopy to evaluate guaiac positive stools. Patient is maintaining chronic atrial fibrillation, heart rate well controlled. Review of systems: Rest review of systems negative. Medications: Medications have been reviewed. Physical Exam Vital Signs: Temp Pulse Resp BP Pulse Ox 97.9 F 80 18 108/52 L 93 03/02/17 08:01 03/02/17 08:01 03/02/17 08:01 03/02/17 08:01 03/02/17 08:01 Intake & Output 03/01/17 03/02/17 03/03/17 06:59 06:59 06:59 Intake Total 2187 1755 Output Total 2155 2580 Balance 32 -825 Weight 99.8 kg 98.7 kg Exam: GENERAL: well-nourished and in no acute distress. Alert and oriented x3 HEAD: Atraumatic, normocephalic. EYES: Pupils equal round and reactive to light, extraocular movements intact, sclera anicteric, conjunctiva are normal. ENT: TMs normal, nares patent, oropharynx clear without exudates. Moist mucous membranes. No oral ulcerations or bleeding gums noted NECK: supple without lymphadenopathy. Trachea is central. No cervical or axillary lymphadenopathy noted. Carotids are 2+, JVD WNL LUNGS: Respiration seems nonlabored, no significant accessory muscle action noted. Breath sounds clear to auscultation bilaterally and equal noted. No wheezes rales or rhonchi noted. No significant dullness noted on percussion. CHEST: Palpation of the chest wall shows no significant chest wall tenderness. No other significant abnormalities noted. HEART: [place] [employer], No PSH, 1/6 [place] aortic area, 1/6 lazcano systolic murmur mitral area, no rubs, no gallops. ABDOMEN: Soft, no significant tenderness appreciated, normoactive bowel sounds. No guarding, no rebound. No rigidity noted . No masses appreciated. EXTREMITIES: Pedal pulses are 1-2+, no calf tenderness noted. No clubbing or cyanosis.trace to 1+ pedal edema noted NEUROLOGICAL: Focused neurological exam showed no significant neurologic deficit. Normal speech, no focal weakness appreciated. PSYCH: Normal mood, normal affect. Judgment and insight within normal limits. SKIN: No significant ecchymosis, rash, ulcerations or signs of pruritus noted. MUSCULOSKELETAL EXAM: No significant joint swelling noted. Results Laboratory Results: 03/02/17 04:07 03/01/17 05:00 03/02/17 04:07 WBC 8.6 RBC 4.25 L Hgb 13.7 Hct 39.7 MCV 94 MCH 32.3 MCHC 34.5 RDW 14.1 H Plt Count 207 02/26/17 02/26/17 02/27/17 21:00 21:00 03:20 Creatine Kinase 73 CK-MB (CK-2) 1.91 2.24 Troponin I < 0.012 < 0.012 02/27/17 02/27/17 02/27/17 03:20 09:40 09:40 Creatine Kinase 100 115 CK-MB (CK-2) 2.25 Troponin I < 0.012 EKG Comments: Telemetry strips shows atrial fibrillation with controlled ventricular response. Impressions: Facial Bones CT 02/26/17 14:13 IMPRESSION: Bilateral masses in the region of the bilateral parotid glands. More extensive on the left. Consider infectious inflammatory etiologies including sialadenitis. Low density areas within the masses most likely represent areas of necrosis/liquefaction. Abscess felt to be unlikely. Please note, neoplasm is also in the differential, to include lymphoma. Chest X-Ray 02/26/17 17:45 IMPRESSION: Suspect mild interstitial edema and vascular congestion. Chest/Abdomen CTA 02/27/17 00:00 IMPRESSION: NORMAL CTA OF THE CHEST. NO PULMONARY EMBOLI. Assessment & Plan - Diagnosis (1) Atrial fibrillation with rapid ventricular response Is this a current diagnosis for this admission?: Yes (2) Congestive heart failure Qualifiers: Congestive heart failure type: diastolic Congestive heart failure chronicity: acute Qualified Code(s): I50.31 - Acute diastolic (congestive) heart failure Is this a current diagnosis for this admission?: Yes (3) Peripheral edema Is this a current diagnosis for this admission?: Yes (4) Mass of parotid gland Is this a current diagnosis for this admission?: Yes (5) Mitral regurgitation Qualifiers: Cardiac valve disease etiology: nonrheumatic Qualified Code(s): I34.0 - Nonrheumatic mitral (valve) insufficiency Is this a current diagnosis for this admission?: Yes - Notes Notes: Atrial fibrillation, persistent and chronic: Continue p.o. Cardizem at 60 mg p.o. every 6. LVEF noted to be relatively well-preserved. Recommend switch to new oral anticoagulant. Consider 12 hours of overlap while switching. Patient currently on heparin. Patient being evaluated for guaiac positive stools. CHF: Most likely precipitated by atrial fibrillation, in setting of either diastolic dysfunction or systolic dysfunction. Patient could also have valvular heart disease. Stopped IV Lasix and started patient on p.o. Lasix at 40 mg daily. Peripheral edema: Most likely part of CHF but there may be significant contribution from venous insufficiency and dependency. Parotid gland mass: Continue with conservative management for the time being. Patient already has been evaluated by ENT surgeon. Mitral regurgitation: Moderate noted on echocardiogram. Need to be followed in the office as periodic repeat echocardiogram would be needed for timing of mitral valve intervention if needed. No endocarditis prophylaxis indicated at this point. - Time Time with patient: 15-25 minutes - CODE STATUS was discussed, patient remains full code. Surrogate decision-maker unchanged. Multiple medical problems were addressed. More than 50% of the time spent coordinating care, discussing management plans with involved caregivers. Management plans discussed with involved personnels. Medical decision making was of moderate to high complexity , patient's has multiple comorbidities. Medications reviewed and adjusted accordingly: Yes
--- NOTE | 2017-03-02 14:02 | PDOC PROGRESS REPORT ---
Subjective Progress Note for:: 03/02/17 Subjective:: Shortness of breath is better. Denies any chest pain. No PND orthopnea. No nausea vomiting or sweating. Patient's denies any melena hematochezia nor hematemesis. Stools reportedly brown. No bloody stools noted. Physical Exam Vital Signs: Temp Pulse Resp BP Pulse Ox 97.7 F 87 16 118/67 95 03/02/17 11:39 03/02/17 12:35 03/02/17 12:35 03/02/17 11:39 03/02/17 12:35 Intake & Output 03/01/17 03/02/17 03/03/17 06:59 06:59 06:59 Intake Total 2186 1755 540 Output Total 2153 2580 700 Balance 32 -825 -160 Weight 99.8 kg 98.7 kg General appearance: PRESENT: no acute distress, cooperative Head exam: PRESENT: normocephalic Eye exam: PRESENT: EOMI Mouth exam: PRESENT: moist, neck supple Neck exam: ABSENT: JVD Respiratory exam: PRESENT: clear to auscultation phil, unlabored. ABSENT: rhonchi, wheezes Cardiovascular exam: PRESENT: irregular rhythm. ABSENT: gallop GI/Abdominal exam: PRESENT: soft. ABSENT: distended, rebound, tenderness Extremities exam: PRESENT: pedal edema Neurological exam: PRESENT: alert, awake, oriented to situation Skin exam: PRESENT: dry, warm. ABSENT: cyanosis Results Laboratory Results: 03/02/17 04:07 03/01/17 05:00 03/02/17 04:07 WBC 8.6 RBC 4.25 L Hgb 13.7 Hct 39.7 MCV 94 MCH 32.3 MCHC 34.5 RDW 14.1 H Plt Count 207 02/26/17 02/26/17 02/27/17 21:00 21:00 03:20 Creatine Kinase 73 CK-MB (CK-2) 1.91 2.24 Troponin I < 0.012 < 0.012 02/27/17 02/27/17 02/27/17 03:20 09:40 09:40 Creatine Kinase 100 115 CK-MB (CK-2) 2.25 Troponin I < 0.012 Impressions: Facial Bones CT 02/26/17 14:13 IMPRESSION: Bilateral masses in the region of the bilateral parotid glands. More extensive on the left. Consider infectious inflammatory etiologies including sialadenitis. Low density areas within the masses most likely represent areas of necrosis/liquefaction. Abscess felt to be unlikely. Please note, neoplasm is also in the differential, to include lymphoma. Chest X-Ray 02/26/17 17:45 IMPRESSION: Suspect mild interstitial edema and vascular congestion. Chest/Abdomen CTA 02/27/17 00:00 IMPRESSION: NORMAL CTA OF THE CHEST. NO PULMONARY EMBOLI. Assessment & Plan - Diagnosis (1) Atrial fibrillation with rapid ventricular response Is this a current diagnosis for this admission?: Yes (2) Congestive heart failure Qualifiers: Congestive heart failure type: diastolic Congestive heart failure chronicity: acute Qualified Code(s): I50.31 - Acute diastolic (congestive) heart failure Is this a current diagnosis for this admission?: Yes (3) Mass of parotid gland Is this a current diagnosis for this admission?: Yes (4) Peripheral edema Is this a current diagnosis for this admission?: Yes (5) Morbid obesity Is this a current diagnosis for this admission?: Yes (6) Heme positive stool Is this a current diagnosis for this admission?: Yes - Time Time Spent with patient: 25-34 minutes - Plan Summary Plan Summary: Continue Cardizem. Continue anticoagulation for now and monitor hematocrit. In the meantime we will consult gastroenterology for endoscopic studies. Hemoglobin hematocrit seems to be stable. Continue current antibiotic at this time.
[2017-03-02] MEDS ORDERED: PEG 3350/NA SULF,BICARB,CL/KCL 4000 ML PO ONE (18:00)
[2017-03-02 18:28] LABS: APPEARANCE,URINE CLEAR; BILIRUBIN,URINE NEGATIVE (NEGATIVE); GLUCOSE, URINE NEGATIVE (NEGATIVE); KETONES,URINE TRACE mg/dL (NEGATIVE); LEUKOCYTE ESTERASE,URINE SMALL (NEGATIVE); NITRITE,URINE NEGATIVE (NEGATIVE); PROTEIN,URINE NEGATIVE (NEGATIVE); URINE SPECIFIC GRAVITY 1.011; UROBILINOGEN,URINE NEGATIVE mg/dL (<2.0)
--- NOTE | 2017-03-02 18:45 | PDOC CONSULTATION ---
Consultation Consult Date: 03/02/17 Attending physician:: CIARRA MARTINEZ Consult reason:: Heme positive stool, patient requiring use of high-risk medication for anticoagulation, needs GI workup History of Present Illness Admission Date/PCP: 02/26/17 19:51 History of Present Illness: Patient was admitted by the hospitalist service. He had been started on anticoagulation but was noted to have anemia and heme positive stools. He has not had a colonoscopy in the past. Patient denied any gross rectal bleeding. He does have a history of A. fib. He denies any nausea vomiting. Patient states he does have some heartburn. No current symptoms of abdominal pain. He denies any melena. He does not recall any having GI workup in the past. I have been asked to see the patient is currently on heparin. He will eventually need to be reconverted to anticoagulation. He will need a GI workup in the meanwhile. Past Medical History Endocrine Medical History: Reports: Obesity Psychiatric Medical History: Reports: Tobacco Dependency Social History Lives with: Spouse/Significant other Smoking Status: Former Smoker Cigarettes Packs Per Day: 0.5 Number of Years Smokin Last Time Smoked: today Frequency of Alcohol Use: Social Hx Recreational Drug Use: No Drugs: None Hx Prescription Drug Abuse: No - Advance Directive Resuscitation Status: Full Code Family History Family History: Hypertension Parental Family History Reviewed: Yes Children Family History Reviewed: Unknown Sibling(s) Family History Reviewed.: Unknown Medication/Allergy Home Medications: No Home Medications 02/27/17 Allergies/Adverse Reactions: No Known Allergies Allergy (Verified 02/26/17 14:06) Review of Systems Constitutional: ABSENT: fever(s), headache(s), night sweats, weakness Eyes: ABSENT: visual disturbances Ears: ABSENT: hearing changes Nose, Mouth, and Throat: ABSENT: mouth pain, sore throat Cardiovascular: PRESENT: dyspnea on exertion. ABSENT: chest pain, palpitations Respiratory: ABSENT: hemoptysis Gastrointestinal: ABSENT: diarrhea, dysphagia, heartburn, melena, nausea, vomiting Musculoskeletal: ABSENT: deformity, joint swelling Integumentary: ABSENT: lesions, pruritus Neurological: ABSENT: syncope, tingling, tremor(s), vertigo Psychiatric: ABSENT: hallucinations Endocrine: ABSENT: polydipsia, polyphagia, polyuria Hematologic/Lymphatic: ABSENT: easy bruising Physical Exam Vital Signs: Temp Pulse Resp BP Pulse Ox 98.4 F 81 20 93/51 L 98 03/02/17 15:53 03/02/17 15:53 03/02/17 15:53 03/02/17 15:53 03/02/17 15:53 Intake & Output 03/01/17 03/02/17 03/03/17 06:59 06:59 06:59 Intake Total 2187 1755 764 Output Total 2150 0550 700 Balance 32 -825 64 Weight 99.8 kg 98.7 kg General appearance: PRESENT: no acute distress, well-developed, well-nourished Head exam: PRESENT: atraumatic, normocephalic Eye exam: PRESENT: EOMI, PERRLA. ABSENT: nystagmus, periorbital swelling, scleral icterus Mouth exam: PRESENT: moist, neck supple Throat exam: ABSENT: tonsillar exudate, tonsillogmegaly Neck exam: ABSENT: meningismus, tenderness, thyromegaly Respiratory exam: PRESENT: symmetrical, tachypnea. ABSENT: unlabored, wheezes Cardiovascular exam: PRESENT: RRR, +S1, +S2 GI/Abdominal exam: PRESENT: soft. ABSENT: rebound, rigid, tenderness Rectal exam: PRESENT: heme (+) stool Extremities exam: PRESENT: +1 edema. ABSENT: joint swelling Neurological exam: PRESENT: oriented to time, oriented to situation, reflexes normal, CN II-XII grossly intact Psychiatric exam: PRESENT: appropriate affect Skin exam: PRESENT: normal color. ABSENT: mottled, pallor, petechiae, urticaria , vesicles Results Laboratory Results: 03/02/17 04:07 03/01/17 05:00 03/02/17 03/02/17 04:07 18:15 WBC 8.6 RBC 4.25 L Hgb 13.7 Hct 39.7 MCV 94 MCH 32.3 MCHC 34.5 RDW 14.1 H Plt Count 207 Urine Color ARNOL Urine Appearance CLEAR Urine pH 5.0 Ur Specific [place] 1.011 Urine Protein NEGATIVE Urine Glucose (UA) NEGATIVE Urine Ketones TRACE H Urine Blood NEGATIVE Urine Nitrite NEGATIVE Ur Leukocyte Esterase SMALL H Urine WBC (Auto) 1 Urine RBC (Auto) 0 02/26/17 02/26/17 02/27/17 21:00 21:00 03:20 Creatine Kinase 73 CK-MB (CK-2) 1.91 2.24 Troponin I < 0.012 < 0.012 02/27/17 02/27/17 02/27/17 03:20 09:40 09:40 Creatine Kinase 100 115 CK-MB (CK-2) 2.25 Troponin I < 0.012 Impressions: Facial Bones CT 02/26/17 14:13 IMPRESSION: Bilateral masses in the region of the bilateral parotid glands. More extensive on the left. Consider infectious inflammatory etiologies including sialadenitis. Low density areas within the masses most likely represent areas of necrosis/liquefaction. Abscess felt to be unlikely. Please note, neoplasm is also in the differential, to include lymphoma. Chest X-Ray 02/26/17 17:45 IMPRESSION: Suspect mild interstitial edema and vascular congestion. Chest/Abdomen CTA 02/27/17 00:00 IMPRESSION: NORMAL CTA OF THE CHEST. NO PULMONARY EMBOLI. Assessment & Plan - Diagnosis (1) Heme positive stool Is this a current diagnosis for this admission?: Yes Plan: Patient does require GI workup. To include both EGD and colonoscopy to evaluate for potential source of heme positive stool. He will also need a colonoscopy for index colonoscopy screening. The risks, benefits and alternatives of the procedure including risks of bleeding, perforation requiring surgery are explained to the patient detail and informed consent was obtained. Patient is willing to proceed. - Time Time Spent: 50 to 70 Minutes
[2017-03-03] MEDS: HEPARIN SODIUM,PORCINE/D5W 25,000 UNIT/250 ML RTUINJ IV PRN (06:37)
[2017-03-03] MEDS: METRONIDAZOLE 500 MG TABLET PO SCH ×3 (10:44→17:31)
--- NOTE | 2017-03-03 11:36 | PDOC PROGRESS REPORT ---
Subjective Progress Note for:: 03/03/17 Subjective:: Is no new complaints. Denies any nausea or vomiting or diarrhea. Denies bright red blood per rectum nor melena nor hematochezia. No hematemesis. No hematuria. No PND orthopnea no chest pain. Physical Exam Vital Signs: Temp Pulse Resp BP Pulse Ox 97.7 F 95 20 112/55 L 98 03/03/17 07:18 03/03/17 07:18 03/03/17 07:18 03/03/17 07:18 03/03/17 07:18 Intake & Output 03/02/17 03/03/17 03/04/17 06:59 06:59 06:59 Intake Total 1755 5708 Output Total 2580 1150 Balance -825 4558 Weight 98.7 kg 98.9 kg 98.9 kg General appearance: PRESENT: no acute distress, cooperative, obese Head exam: PRESENT: normocephalic Eye exam: PRESENT: EOMI Mouth exam: PRESENT: moist, neck supple Neck exam: ABSENT: JVD Respiratory exam: PRESENT: clear to auscultation phil. ABSENT: rhonchi Cardiovascular exam: PRESENT: irregular rhythm. ABSENT: gallop GI/Abdominal exam: PRESENT: normal bowel sounds, soft. ABSENT: distended - Obese Extremities exam: ABSENT: pedal edema Neurological exam: PRESENT: alert, awake, oriented to situation Skin exam: PRESENT: dry, warm. ABSENT: cyanosis Results Laboratory Results: 03/02/17 04:07 03/01/17 05:00 03/02/17 03/02/17 18:15 20:19 Urine Color ARNOL Urine Appearance CLEAR Urine pH 5.0 Ur Specific [place] 1.011 Urine Protein NEGATIVE Urine Glucose (UA) NEGATIVE Urine Ketones TRACE H Urine Blood NEGATIVE Urine Nitrite NEGATIVE Ur Leukocyte Esterase SMALL H Urine WBC (Auto) 1 Urine RBC (Auto) 0 Stool Occult Blood NEGATIVE 02/26/17 02/26/17 02/27/17 21:00 21:00 03:20 Creatine Kinase 73 CK-MB (CK-2) 1.91 2.24 Troponin I < 0.012 < 0.012 02/27/17 02/27/17 02/27/17 03:20 09:40 09:40 Creatine Kinase 100 115 CK-MB (CK-2) 2.25 Troponin I < 0.012 Impressions: Facial Bones CT 02/26/17 14:13 IMPRESSION: Bilateral masses in the region of the bilateral parotid glands. More extensive on the left. Consider infectious inflammatory etiologies including sialadenitis. Low density areas within the masses most likely represent areas of necrosis/liquefaction. Abscess felt to be unlikely. Please note, neoplasm is also in the differential, to include lymphoma. Chest X-Ray 02/26/17 17:45 IMPRESSION: Suspect mild interstitial edema and vascular congestion. Chest/Abdomen CTA 02/27/17 00:00 IMPRESSION: NORMAL CTA OF THE CHEST. NO PULMONARY EMBOLI. Assessment & Plan - Diagnosis (1) Atrial fibrillation with rapid ventricular response Is this a current diagnosis for this admission?: Yes (2) Congestive heart failure Qualifiers: Congestive heart failure type: diastolic Congestive heart failure chronicity: acute Qualified Code(s): I50.31 - Acute diastolic (congestive) heart failure Is this a current diagnosis for this admission?: Yes (3) Mass of parotid gland Is this a current diagnosis for this admission?: Yes (4) Peripheral edema Is this a current diagnosis for this admission?: Yes (5) Morbid obesity Is this a current diagnosis for this admission?: Yes (6) Heme positive stool Is this a current diagnosis for this admission?: Yes - Time Time Spent with patient: 25-34 minutes - Plan Summary Plan Summary: I have discussed in length recent regarding chronic anticoagulation. She seems to be reluctant with her warfarin and the frequent blood checks but she is likewise reluctant about the newer anticoagulants. He is unsure about just aspirin. He was educated about prevention of stroke with intake of aspirin and the newer anticoagulants with his condition atrial fibrillation. He understood it well. In the meantime awaiting endoscopic studies for heme positive stools. Hemoglobin hematocrit is stable. His last stool for occult blood was negative. Continue current medications.
[2017-03-03] MEDS ORDERED: ONDANSETRON HCL INJ/PF 4 MG/2 ML SDV ONE (12:26)
[2017-03-03] MEDS ORDERED: DIPHENHYDRAMINE HCL 50 MG/ML VIAL ONE (12:26)
[2017-03-03] MEDS ORDERED: FLUMAZENIL INJ 0.5 MG/5 ML VIAL ONE (12:27)
[2017-03-03] MEDS ORDERED: EPINEPHRINE INJ 1 MG/10 ML DISP.SYRIN ONE (12:27)
[2017-03-03] MEDS ORDERED: NALOXONE HCL INJ/PF 0.4 MG/1 ML SDV ONE (12:27)
[2017-03-03] MEDS ORDERED: GLUCAGON,HUMAN RECOMB 1 MG INJ ONE (12:28)
[2017-03-03] MEDS: FUROSEMIDE INJ/PF 40 MG/4 ML SDV IV SCH (13:09)
[2017-03-03] MEDS: DOCUSATE SODIUM 100 MG CAPSULE PO SCH ×2 (13:12→18:38)
[2017-03-03] MEDS: DILTIAZEM HCL 60 MG TABLET PO SCH ×2 (13:12→17:30)
[2017-03-03] MEDS ORDERED: MAG HYDROX/AL HYDROX/SIMETH SUSP 30 ML UDCUP PO PRN (14:30)
[2017-03-03] MEDS: MIDAZOLAM 2 MG/2 ML INJ ONE ×2 (14:30→14:42)
[2017-03-03] MEDS: FENTANYL CITRATE INJ/PF 100 MCG/2 ML AMPUL ONE ×2 (14:32→14:40)
--- NOTE | 2017-03-03 15:01 | Operative Report ---
Operative Report DATE OF SURGERY: 03/03/17 Operative Report: The risks, benefits and alternatives of the procedure including risks of bleeding, perforation requiring surgery are explained to the patient detail and informed consent was obtained. Patient was taken back to the endoscopy suite and placed in the left, lateral decubital position. A rectal examination is done which did not reveal any masses, tears or fissures. An Olympus videoscope was inserted into the patient's rectum. It is carefully guided all the way to the cecum. The cecum was identified by the usual anatomical landmarks including the ileocecal valve as well as the appendiceal office. Photodocumentation was obtained. The scope was then sequentially pulled back via the various segments of the colon including the ascending colon, hepatic flexure, transverse colon, splenic flexure, descending colon to the rectosigmoid portions of the colon. Retroflexion maneuver was performed. The risks benefits and alternatives of the procedure explained to the patient in detail and informed consent is obtained.A GIF Olympus video scope was inserted into the patient's mouth and hypopharynx ,the esophagus is identified intubated and insufflated, the scope was then advanced through the esophagus stomach and duodenum, retroflexion maneuver is done, the esophagus stomach and first and second portions of the duodenum examined PREOPERATIVE DIAGNOSIS: Heme positive stool POSTOPERATIVE DIAGNOSIS: Gastritis, duodenitis small biopsy taken to rule out for Helicobacter pylori. Colon polyp removed via snare polypectomy. Internal hemorrhoids OPERATION: Colonoscopy with snare polypectomy. EGD with biopsy SURGEON: CIARRA MARTINEZ ANESTHESIA: Moderate Sedation - Conscious sedation monitoring time 30 minutes. TISSUE REMOVED OR ALTERED: As noted above COMPLICATIONS: None. ESTIMATED BLOOD LOSS: None. INTRAOPERATIVE FINDINGS: As described above. PROCEDURE: Patient tolerated procedure well. No immediate postprocedure complications are noted. Patient sent back to his room in good condition. Can resume diet. Restart heparin at 730 tonight. Await biopsies. 5 year surveillance colonoscopy. Can follow-up as outpatient. No active bleeding noted. Continue to watch for signs of bleeding
--- NOTE | 2017-03-03 18:46 | PDOC PROGRESS REPORT ---
Subjective Progress Note for:: 03/03/17 Subjective:: Patient seems to be doing better with gradual improvement. Edema is improved. Dyspnea is improved. Pt is denying any chest arm or neck discomfort. Patient denying any PND, orthopnea. Patient denied any sustained palpitations, dizziness, syncope, near syncope. Patient denying any fever chills. Patient denying any other significant discomfort. Patient had a nuclear stress test. These results were discussed with the patient. Echocardiogram results were also discussed. Patient was noted to have moderate mitral regurgitation. Patient underwent GI endoscopy and had a few polyps removed. He is being kept for overnight observation. Recommend starting Eliquis. Patient is maintaining chronic atrial fibrillation, heart rate well controlled. Review of systems: Rest review of systems negative. Medications: Medications have been reviewed. No Physical Exam Vital Signs: Temp Pulse Resp BP Pulse Ox 97.7 F 50 L 20 113/57 L 98 03/03/17 16:04 03/03/17 16:04 03/03/17 16:04 03/03/17 16:04 03/03/17 16:04 Intake & Output 03/02/17 03/03/17 03/04/17 06:59 06:59 06:59 Intake Total 1755 5708 650 Output Total 2580 1150 1400 Balance -825 4558 -750 Weight 98.7 kg 98.9 kg 98.9 kg Exam: GENERAL: well-nourished and in no acute distress. Alert and oriented x3 HEAD: Atraumatic, normocephalic. EYES: Pupils equal round and reactive to light, extraocular movements intact, sclera anicteric, conjunctiva are normal. ENT: TMs normal, nares patent, oropharynx clear without exudates. Moist mucous membranes. No oral ulcerations or bleeding gums noted NECK: supple without lymphadenopathy. Trachea is central. No cervical or axillary lymphadenopathy noted. Carotids are 2+, JVD WNL LUNGS: Respiration seems nonlabored, no significant accessory muscle action noted. Breath sounds clear to auscultation bilaterally and equal noted. No wheezes rales or rhonchi noted. No significant dullness noted on percussion. CHEST: Palpation of the chest wall shows no significant chest wall tenderness. No other significant abnormalities noted. HEART: [place] PSYCHOLOGIST, No PSH, 1/6 [place] aortic area, 1/6 lazcano systolic murmur mitral area, no rubs, no gallops. ABDOMEN: Soft, no significant tenderness appreciated, normoactive bowel sounds. No guarding, no rebound. No rigidity noted . No masses appreciated. EXTREMITIES: Pedal pulses are 1-2+, no calf tenderness noted. No clubbing or cyanosis.trace to 1+ pedal edema noted NEUROLOGICAL: Focused neurological exam showed no significant neurologic deficit. Normal speech, no focal weakness appreciated. PSYCH: Normal mood, normal affect. Judgment and insight within normal limits. SKIN: No significant ecchymosis, rash, ulcerations or signs of pruritus noted. MUSCULOSKELETAL EXAM: No significant joint swelling noted. Results Laboratory Results: 03/02/17 04:07 03/01/17 05:00 03/02/17 20:19 Stool Occult Blood NEGATIVE 02/26/17 02/26/17 02/27/17 21:00 21:00 03:20 Creatine Kinase 73 CK-MB (CK-2) 1.91 2.24 Troponin I < 0.012 < 0.012 02/27/17 02/27/17 02/27/17 03:20 09:40 09:40 Creatine Kinase 100 115 CK-MB (CK-2) 2.25 Troponin I < 0.012 EKG Comments: Telemetry strips shows atrial fibrillation with controlled ventricular response. Impressions: Facial Bones CT 02/26/17 14:13 IMPRESSION: Bilateral masses in the region of the bilateral parotid glands. More extensive on the left. Consider infectious inflammatory etiologies including sialadenitis. Low density areas within the masses most likely represent areas of necrosis/liquefaction. Abscess felt to be unlikely. Please note, neoplasm is also in the differential, to include lymphoma. Chest X-Ray 02/26/17 17:45 IMPRESSION: Suspect mild interstitial edema and vascular congestion. Chest/Abdomen CTA 02/27/17 00:00 IMPRESSION: NORMAL CTA OF THE CHEST. NO PULMONARY EMBOLI. Assessment & Plan - Diagnosis (1) Atrial fibrillation with rapid ventricular response Is this a current diagnosis for this admission?: Yes (2) Congestive heart failure Qualifiers: Congestive heart failure type: diastolic Congestive heart failure chronicity: acute Qualified Code(s): I50.31 - Acute diastolic (congestive) heart failure Is this a current diagnosis for this admission?: Yes (3) Peripheral edema Is this a current diagnosis for this admission?: Yes (4) Mass of parotid gland Is this a current diagnosis for this admission?: Yes (5) Mitral regurgitation Qualifiers: Cardiac valve disease etiology: nonrheumatic Qualified Code(s): I34.0 - Nonrheumatic mitral (valve) insufficiency Is this a current diagnosis for this admission?: Yes - Notes Notes: Atrial fibrillation, persistent and chronic: Switched patient to Cardizem CD 120 p.o. every 12. LVEF noted to be relatively well-preserved. Recommend switch to new oral anticoagulant. Consider 12 hours of overlap while switching. Patient currently on heparin. Could switch to Eliquis 5 mg p.o. twice daily. CHF: Most likely precipitated by atrial fibrillation, in setting of either diastolic dysfunction or systolic dysfunction. Patient could also have valvular heart disease. Continue p.o. Lasix at 20 mg p.o. daily. Peripheral edema: Most likely part of CHF but there may be significant contribution from venous insufficiency and dependency. Parotid gland mass: Continue with conservative management for the time being. Patient already has been evaluated by ENT surgeon. Mitral regurgitation: Moderate noted on echocardiogram. Need to be followed in the office as periodic repeat echocardiogram would be needed for timing of mitral valve intervention if needed. No endocarditis prophylaxis indicated at this point. - Time Time with patient: 15-25 minutes - CODE STATUS was discussed, patient remains full code. Surrogate decision-maker unchanged. Multiple medical problems were addressed. More than 50% of the time spent coordinating care, discussing management plans with involved caregivers. Management plans discussed with involved personnels. Medical decision making was of moderate to high complexity , patient's has multiple comorbidities. Medications reviewed and adjusted accordingly: Yes
[2017-03-03] MEDS ORDERED: DILTIAZEM HCL 120 MG CAP.SR.24H PO ONE (20:00)
[2017-03-03] MEDS: APIXABAN 5 MG TABLET PO SCH (21:13)
[2017-03-04] MEDS: METRONIDAZOLE 500 MG TABLET PO SCH ×2 (00:53→06:01)
[2017-03-04 04:56] LABS: HEMATOCRIT 40.5 % (37.9-51.0); HEMOGLOBIN 13.8 g/dL (13.5-17.0); HGB HCT DIFFERENCE 0.9; MEAN CORPUSCULAR HGB CONC 34.1 g/dL (32.0-36.0); MEAN CORPUSCULAR VOLUME 94 fl (80-97); RED BLOOD COUNT 4.32 10^6/uL (4.35-5.55); RED CELL DISTRIBUTION WIDTH 13.9 % (11.5-14.0); WHITE BLOOD COUNT 7.6 10^3/uL (4.0-10.5)
[2017-03-04 09:08] VITALS: BP 122/72
[2017-03-04] MEDS: APIXABAN 5 MG TABLET PO SCH (09:24)
[2017-03-04] MEDS: DOCUSATE SODIUM 100 MG CAPSULE PO SCH (09:24)
[2017-03-04] MEDS ORDERED: DILTIAZEM HCL 120 MG CAP.SR.24H PO SCH (10:00)
[2017-03-04] MEDS ORDERED: FUROSEMIDE 40 MG TABLET PO SCH (10:00)
--- NOTE | 2017-03-04 10:10 | PDOC DISCHARGE SUMMARY ---
General - Admit/Disc Date/PCP Admission Date/Primary Care Provider: 02/26/17 19:51 Discharge Date: 03/04/17 - Discharge Diagnosis (1) Atrial fibrillation with rapid ventricular response Is this a current diagnosis for this admission?: Yes (2) Congestive heart failure Is this a current diagnosis for this admission?: Yes (3) Mass of parotid gland Is this a current diagnosis for this admission?: Yes (4) Peripheral edema Is this a current diagnosis for this admission?: Yes (5) Morbid obesity Is this a current diagnosis for this admission?: Yes (6) Gastritis Is this a current diagnosis for this admission?: Yes - Additional Information Resuscitation Status: Full Code Discharge Diet: Cardiac Discharge Activity: Activity As Tolerated, Balance Activity w/Rest, Weigh Daily Home Medications: Apixaban [Eliquis 5 mg Tablet] 5 mg PO Q12 #60 tablet 03/04/17 Diltiazem HCl [Cardizem Cd 120 mg Capsule] 120 mg PO Q12 #60 cap.sr.24h Furosemide [Lasix 40 mg Tablet] 40 mg PO DAILY #30 tablet 03/04/17 Lansoprazole [Prevacid] 30 mg PO DAILY #30 capsule. 03/04/17 Metronidazole [Flagyl 500 mg Tablet] 500 mg PO Q6 #32 tablet 03/04/17 Additional Information: Appointment with research associate quality control qc at [facility] as scheduled. Return to the emergency room if symptoms recur. Follow-up biopsy result of the polyp in 1 week with primary care physician. History of Present Illness Patient complains of: Shortness of breath and diarrhea History of Present Illness: DANIELA GARCIA JR is a 61 year old male with a past medical history of tobacco dependence and 3 months of bilateral parotid gland swelling recently seen by ENT placed on Augmentin and clindamycin and subsequently developing diarrhea. However the patient's primary complaint is shortness of breath and lower extremity edema denying palpitations nausea or vomiting prompting his evaluation emergency room. Where he is found to have atrial fibrillation with RVR, acute congestive heart failure, and a CT of the parotid glands suggestive of necrosis without abscess. He is referred to the hospitalist for admission. For details please refer to history and physical examination performed by the admitting physician. Hospital Course Hospital Course: The patient was admitted to [facility]. The patient was placed on Cardizem drip. She was found to be in atrial fibrillation with RVR. Heart failure was likewise noted on x-ray. Diuretics was started intravenously. Cardiology was consulted patient was started on anticoagulation with heparin drip. His course was noted for Hemoccult positive stools but his hematocrit was stable on monitoring. The patient eventually performed a stress test showing no reversible ischemia. CT scan of the chest did not reveal any pulmonary embolism. Gastroenterology was consulted for the heme-positive stools and endoscopy was performed. A polyp was noted and this was removed. Gastritis was noted and there was no active bleeding. He was advised to follow-up results of the biopsy outpatient. Patient improved. Intravenous Cardizem transition to oral. Shortness of breath resolved. Heart rate was controlled. The rest of the hospital stays unremarkable. Physical Exam Vital Signs: Temp Pulse Resp BP Pulse Ox 98.2 F 98 16 122/72 98 03/04/17 09:07 03/04/17 09:07 03/04/17 09:07 03/04/17 09:07 03/04/17 09:07 Intake & Output 03/03/17 03/04/17 03/05/17 06:59 06:59 06:59 Intake Total 5708 2347 Output Total 1150 2250 Balance 4558 97 Weight 98.9 kg 97.3 kg General appearance: PRESENT: no acute distress, cooperative, obese Head exam: PRESENT: normocephalic Eye exam: PRESENT: EOMI Mouth exam: PRESENT: moist, neck supple Neck exam: ABSENT: JVD Respiratory exam: PRESENT: clear to auscultation phil Cardiovascular exam: PRESENT: irregular rhythm. ABSENT: gallop GI/Abdominal exam: PRESENT: normal bowel sounds, soft. ABSENT: distended Extremities exam: PRESENT: other - Trace pretibial edema Neurological exam: PRESENT: alert, awake, oriented to person, oriented to place , oriented to time, oriented to situation Skin exam: PRESENT: dry, warm. ABSENT: cyanosis Results Laboratory Results: 03/04/17 04:18 03/01/17 05:00 03/04/17 04:18 WBC 7.6 RBC 4.32 L Hgb 13.8 Hct 40.5 MCV 94 MCH 32.0 MCHC 34.1 RDW 13.9 Plt Count 211 02/26/17 02/26/17 02/27/17 21:00 21:00 03:20 Creatine Kinase 73 CK-MB (CK-2) 1.91 2.24 Troponin I < 0.012 < 0.012 02/27/17 02/27/17 02/27/17 03:20 09:40 09:40 Creatine Kinase 100 115 CK-MB (CK-2) 2.25 Troponin I < 0.012 Impressions: Facial Bones CT 02/26/17 14:13 IMPRESSION: Bilateral masses in the region of the bilateral parotid glands. More extensive on the left. Consider infectious inflammatory etiologies including sialadenitis. Low density areas within the masses most likely represent areas of necrosis/liquefaction. Abscess felt to be unlikely. Please note, neoplasm is also in the differential, to include lymphoma. Chest X-Ray 02/26/17 17:45 IMPRESSION: Suspect mild interstitial edema and vascular congestion. Chest/Abdomen CTA 02/27/17 00:00 IMPRESSION: NORMAL CTA OF THE CHEST. NO PULMONARY EMBOLI. Qualifiers PATEINT BEING DISCHARGED WITH ANY OF THE FOLLOWING DIAGNOSIS?: Heart Failure HF Pt being discharged on ACEI for LVEF less than 40%?: No Reason(s) for not prescribing ACEI:: Not indicated - Ejection fraction is normal HF Pt being discharged on ARBS for LVEF less than 40%?: No Reason(s) for not prescribing ARBS:: Not indicated - Ejection fraction is normal HF Pt with Afib discharged with Warfarin?: No Reason(s) for not prescribing Warfarin:: Not indicated - Patient on Eliquis HF Pt discharged on evidence-based Beta Blaise:: No Reason(s) for not prescribing evidence-based Beta Blaise:: Not indicated Plan Discharge Plan: Follow-up with primary care physician in 1 week. Follow-up with Dr. Matamoros in 1- 2 weeks. Follow-up with ENT for the parotid mass as outpatient. Time Spent: Less than 30 Minutes
--- NOTE | 2017-03-05 17:24 | PDOC PROGRESS REPORT ---
Subjective Progress Note for:: 03/04/17 Subjective:: Patient seems to be doing better. Edema is improved. Dyspnea is improved. Pt is denying any chest arm or neck discomfort. Patient denying any PND, orthopnea. Patient denied any sustained palpitations, dizziness, syncope, near syncope. Patient denying any fever chills. Patient denying any other significant discomfort. Patient had a nuclear stress test. These results were discussed with the patient. Echocardiogram results were also discussed. Patient was noted to have moderate mitral regurgitation. Discussed that she would need continued cardiology follow-up. GI evaluation was performed and few polyps were removed. Patient stayed overnight to look for any new bleeding. Currently doing better and is being expected to be discharged. Patient is maintaining chronic atrial fibrillation, heart rate well controlled. Review of systems: Rest review of systems negative. Medications: Medications have been reviewed. Physical Exam Vital Signs: Temp Pulse Resp BP Pulse Ox 98.2 F 98 16 122/72 98 03/04/17 09:07 03/04/17 09:07 03/04/17 09:07 03/04/17 09:07 03/04/17 09:07 Intake & Output 03/03/17 03/04/17 03/05/17 06:59 06:59 06:59 Intake Total 5708 2347 Output Total 1150 2250 Balance 4558 97 Weight 98.9 kg 97.3 kg Exam: GENERAL: well-nourished and in no acute distress. Alert and oriented x3 HEAD: Atraumatic, normocephalic. EYES: Pupils equal round and reactive to light, extraocular movements intact, sclera anicteric, conjunctiva are normal. ENT: TMs normal, nares patent, oropharynx clear without exudates. Moist mucous membranes. No oral ulcerations or bleeding gums noted NECK: supple without lymphadenopathy. Trachea is central. No cervical or axillary lymphadenopathy noted. Carotids are 2+, JVD WNL LUNGS: Respiration seems nonlabored, no significant accessory muscle action noted. Breath sounds clear to auscultation bilaterally and equal noted. No wheezes rales or rhonchi noted. No significant dullness noted on percussion. CHEST: Palpation of the chest wall shows no significant chest wall tenderness. No other significant abnormalities noted. HEART: [place] [employer], No PSH, 1/6 CORINNA aortic area, 1/6 lazcano systolic murmur mitral area, no rubs, no gallops. ABDOMEN: Soft, no significant tenderness appreciated, normoactive bowel sounds. No guarding, no rebound. No rigidity noted . No masses appreciated. EXTREMITIES: Pedal pulses are 1-2+, no calf tenderness noted. No clubbing or cyanosis. 1+ pedal edema noted NEUROLOGICAL: Focused neurological exam showed no significant neurologic deficit. Normal speech, no focal weakness appreciated. PSYCH: Normal mood, normal affect. Judgment and insight within normal limits. SKIN: No significant ecchymosis, rash, ulcerations or signs of pruritus noted. MUSCULOSKELETAL EXAM: No significant joint swelling noted. Results Laboratory Results: 03/04/17 04:18 03/01/17 05:00 03/04/17 04:18 WBC 7.6 RBC 4.32 L Hgb 13.8 Hct 40.5 MCV 94 MCH 32.0 MCHC 34.1 RDW 13.9 Plt Count 211 02/26/17 02/26/17 02/27/17 21:00 21:00 03:20 Creatine Kinase 73 CK-MB (CK-2) 1.91 2.24 Troponin I < 0.012 < 0.012 02/27/17 02/27/17 02/27/17 03:20 09:40 09:40 Creatine Kinase 100 115 CK-MB (CK-2) 2.25 Troponin I < 0.012 EKG Comments: Showed atrial fibrillation with controlled ventricular response Impressions: Facial Bones CT 02/26/17 14:13 IMPRESSION: Bilateral masses in the region of the bilateral parotid glands. More extensive on the left. Consider infectious inflammatory etiologies including sialadenitis. Low density areas within the masses most likely represent areas of necrosis/liquefaction. Abscess felt to be unlikely. Please note, neoplasm is also in the differential, to include lymphoma. Chest X-Ray 02/26/17 17:45 IMPRESSION: Suspect mild interstitial edema and vascular congestion. Chest/Abdomen CTA 02/27/17 00:00 IMPRESSION: NORMAL CTA OF THE CHEST. NO PULMONARY EMBOLI. Assessment & Plan - Diagnosis (1) Atrial fibrillation with rapid ventricular response Is this a current diagnosis for this admission?: Yes (2) Congestive heart failure Qualifiers: Congestive heart failure type: diastolic Congestive heart failure chronicity: acute Qualified Code(s): I50.31 - Acute diastolic (congestive) heart failure Is this a current diagnosis for this admission?: Yes (3) Peripheral edema Is this a current diagnosis for this admission?: Yes (4) Mass of parotid gland Is this a current diagnosis for this admission?: Yes (5) Mitral regurgitation Qualifiers: Cardiac valve disease etiology: nonrheumatic Qualified Code(s): I34.0 - Nonrheumatic mitral (valve) insufficiency Is this a current diagnosis for this admission?: Yes - Notes Notes: Atrial fibrillation, persistent and chronic: Continue Cardizem CD 120 p.o. every 12. LVEF noted to be relatively well-preserved. Continue oral anticoagulant. After discussion with hospitalist, patient to be discharged on Eliquis 5 mg p.o. twice daily. Patient can follow-up with me. CHF: Most likely precipitated by atrial fibrillation, in setting of either diastolic dysfunction or systolic dysfunction. Patient could also have valvular heart disease. Continue p.o. Lasix at 40 mg p.o. daily. Patient advised and CHF management. Peripheral edema: Most likely part of CHF but there may be significant contribution from venous insufficiency and dependency. This is significantly improved. Parotid gland mass: Continue with conservative management for the time being. Patient already has been evaluated by ENT surgeon. Mitral regurgitation: Moderate noted on echocardiogram. Need to be followed in the office as periodic repeat echocardiogram would be needed for timing of mitral valve intervention if needed. No endocarditis prophylaxis indicated at this point. All these issues were discussed with with detail with the patient. He would like to follow-up with me as an outpatient. Inpatient cardiac evaluations were discussed with the patient in detail. - Time Time with patient: 15-25 minutes - CODE STATUS was discussed, patient remains full code. Surrogate decision-maker unchanged. Multiple medical problems were addressed. More than 50% of the time spent coordinating care, discussing management plans with involved caregivers. Management plans discussed with involved personnels. Medical decision making was of moderate to high complexity , patient's has multiple comorbidities. Medications reviewed and adjusted accordingly: Yes
== END 2017-03-04 11:09 | disposition home or self-care (01) | DRG 308 ==
LOC: ER 13:55 → EH 19:51 → UNDOADMIN 20:18 → 3W 02-27 00:16
PROVIDERS: ADMIT Internal Medicine; ATTEND Internal Medicine
PROC: 0DBN8ZX Excision of Sigmoid Colon, Via Natural or Artificial Opening Endoscopic, Diagnostic (ICD-10-PCS; principal; 2017-03-03 12:30)
PROC: 0DB68ZX Excision of Stomach, Via Natural or Artificial Opening Endoscopic, Diagnostic (ICD-10-PCS; 2017-03-03 12:30)
DX: I48.1 Persistent atrial fibrillation (principal); I50.31 Acute diastolic (congestive) heart failure; K92.1 Melena; K11.8 Other diseases of salivary glands; E66.01 Morbid (severe) obesity due to excess calories; K29.80 Duodenitis without bleeding; F17.210 Nicotine dependence, cigarettes, uncomplicated; I34.0 Nonrheumatic mitral (valve) insufficiency; K29.70 Gastritis, unspecified, without bleeding; K64.8 Other hemorrhoids; I87.2 Venous insufficiency (chronic) (peripheral); Z68.33 Body mass index [BMI] 33.0-33.9, adult; Z82.49 Family history of ischemic heart disease and other diseases of the circulatory system; Z82.3 Family history of stroke
CPT/HCPCS: 36415; 43239; 45385; 70487; 71020; 71275; 78452; 80048; 80053; 80307; 81001; 82272; 82550; 82553; 82803; 82962; 83605; 83735; 83880; 84443; 84484; 85025; 85027; 85610; 85652; 85730; 86430; 87040; 87086; 87493; 88305; 88342; 93005; 93010; 93017; 93306; 94640; 94660; 96361; 96365; 96367; 96375; 99285; A9500; J0171; J1200; J1610; J1644; J1940; J2060; J2250; J2310; J2405; J2543; J2785; J3010; J3370; J3490; J7030; Q9969

== ENCOUNTER 2018-11-28 16:03 | Inpatient (IN) | payer MEDICARE, BC ==
--- NOTE | 2018-11-28 16:47 | ER Document Report ---
ED Medical Screen (RME) - General Chief Complaint: CHF Exacerbation Stated Complaint: NECK PAIN Time Seen by Provider: 11/28/18 16:37 Primary Care Provider: JULI BYRD PA-C [Primary Care Provider] - Follow up as needed Mode of Arrival: Wheelchair Information source: Patient Notes: Patient sent to the emergency department by [facility] for possible admis erin. Patient has history of mass to the right side of his neck. Has been evaluated by ENT. He reports they are worried about that because it is getting worse he also reports his main problem is peripheral edema swelling history of CHF atrial fib. No complaints of fever vomiting diarrhea. I have greeted and performed a rapid initial assessment of this patient. A comprehensive ED assessment and evaluation of the patient, analysis of test results and completion of the medical decision making process will be conducted by additional ED providers. Dictation of this chart was performed using voice recognition software; therefore, there may be some unintended grammatical errors. TRAVEL OUTSIDE OF THE [place] IN LAST 30 DAYS: No - Related Data Allergies/Adverse Reactions: No Known Allergies Allergy (Verified 02/26/17 14:06) Past Medical History Neurological Medical History: Denies: Hx Seizures Renal/ Medical History: Denies: Hx Peritoneal Dialysis - Immunizations Hx Diphtheria, Pertussis, Tetanus Vaccination: No Physical Exam - Vital signs Vitals: Temp Pulse Resp BP Pulse Ox 97.9 F 120 H 28 H 108/62 100 11/28/18 16:20 11/28/18 16:20 11/28/18 16:20 11/28/18 16:20 11/28/18 16:20 Course - Vital Signs Vital signs: Temp Pulse Resp BP Pulse Ox 97.9 F 120 H 28 H 108/62 100 11/28/18 16:20 11/28/18 16:20 11/28/18 16:20 11/28/18 16:20 11/28/18 16:20 - Laboratory Result Diagrams: 11/28/18 17:54 11/28/18 17:54 Laboratory results interpreted by me: 11/28/18 11/28/18 11/28/18 17:54 17:54 17:54 RDW 15.6 H Seg Neutrophils % 78.6 H Lymphocytes % 6.3 L Monocytes % 14.2 H Absolute Lymphocytes 0.4 L Glucose 117 H Direct Bilirubin 0.6 H AST 87 H Creatine Kinase 650 H NT-Pro-B Natriuret Pep 8440 H Doctor's Discharge - Discharge Referrals: JULI BYRD PA-C [Primary Care Provider] - Follow up as needed
--- NOTE | 2018-11-28 17:26 | ER Document Report ---
ED General - General Mode of Arrival: Wheelchair TRAVEL OUTSIDE OF THE [place] IN LAST 30 DAYS: No <CARLOS TORO - Last Filed: 11/28/18 20:04> <ETHEL ENCINAS - Last Filed: 11/29/18 13:48> - General Chief Complaint: CHF Exacerbation Stated Complaint: NECK PAIN Time Seen by Provider: 11/28/18 16:37 Notes: 63-year-old male with history of atrial fibrillation, congestive heart failure, diabetes, and PVD presents emergency department after being sent over by his primary care provider from [facility] for concern for a mass to the right side of his neck. He was evaluated by ENT and states that they are worried that it is getting worse. CT no evidence of any airway compromise at this time. Also, his chief complaint is that his peripheral edema in his bilateral lower extremities is gotten acutely worse and extend all the way up his leg into his abdomen. He denies any fevers or recent illness, complains of shortness of breath, denies chest pain, denies diaphoresis, denies nausea. Patient is tachycardic approximately 120 but is saturating at 98% on room air. Patient is not currently hypertensive at this time. (CARLOS TORO) - Related Data Allergies/Adverse Reactions: No Known Allergies Allergy (Verified 02/26/17 14:06) Past Medical History - General Information source: Patient - Social History Smoking Status: Current Every Day Smoker Chew tobacco use (# tins/day): No Frequency of alcohol use: None Drug Abuse: None Family History: Hypertension Patient has suicidal ideation: No Patient has homicidal ideation: No Neurological Medical History: Denies: Hx Seizures Renal/ Medical History: Denies: Hx Peritoneal Dialysis - Immunizations Hx Diphtheria, Pertussis, Tetanus Vaccination: No <CARLOS TORO - Last Filed: 11/28/18 20:04> Review of Systems - Review of Systems Constitutional: See HPI EENT: No symptoms reported Cardiovascular: See HPI Respiratory: See HPI Gastrointestinal: See HPI Genitourinary: No symptoms reported Male Genitourinary: No symptoms reported Musculoskeletal: No symptoms reported Skin: No symptoms reported Hematologic/Lymphatic: No symptoms reported Neurological/Psychological: No symptoms reported <CARLOS TORO - Last Filed: 11/28/18 20:04> Physical Exam <CARLOS TORO - Last Filed: 11/28/18 20:04> - Vital signs Vitals: Temp Pulse Resp BP Pulse Ox 97.9 F 120 H 28 H 108/62 100 11/28/18 16:20 11/28/18 16:20 11/28/18 16:20 11/28/18 16:20 11/28/18 16:20 - Notes Notes: PHYSICAL EXAMINATION: Reviewed vital signs and charting by RN GENERAL: Alert, interacts well. No acute distress. HEAD: Normocephalic, atraumatic. EYES: Pupils equal, round, and reactive to light. Extraocular movements intact. ENT: Oral mucosa moist, tongue midline. NECK: Significant mass on the lateral right neck that is oozing serous fluid LUNGS: End expiratory wheezing in all ramirez HEART: Tachycardia, irregularly irregular rhythm no murmurs heard ABDOMEN: soft, non-tender. Significant distention with positive fluid wave, bowel sounds present EXTREMITIES: Moves all 4 extremities spontaneously. Significant bilateral lower extremity edema legs are very tight PSYCH: Normal affect, normal mood. SKIN: Legs are very erythematous and weeping (CARLOS TORO) Course - Laboratory Result Diagrams: 11/28/18 17:54 11/28/18 17:54 <CARLOS TORO - Last Filed: 11/28/18 20:04> - Laboratory Result Diagrams: 11/29/18 02:24 11/29/18 02:24 <ETHEL ENCINAS - Last Filed: 11/29/18 13:48> - Re-evaluation Re-evalutation: 11/28/18 18:[address] Encinas. CTA chest ordered and the mass on the right side of his neck has started to ulcerate so a CT soft tissue neck without has a been added as well. No significant electrolyte derangements. CK is 650, troponin 0.016. Chest x-ray showed a right pleural effusion. 11/28/18 19:21 11/28/18 20:04 CTA chest negative for PE, CT soft tissue of the neck was remarkable for a mass of the parotid body with the radiologist differential is a Wetzel cyst. proBNP 8800. Troponin negative. CTA chest revealed a significant pleural effusion of the right lung as well. Patient is currently tachycardic at 125. I called Dr. Kilgore, hospitalist, who accepted the patient for full admission to the [facility]. 11/28/18 20:05 (CARLOS TORO) 11/29/18 13:42 I personally and independently obtained patient history and examined the patient in conjunction with the APC and agree with the assessment, treatment plan and disposition of the patient as recorded by the APC, and have reviewed the APC's note. HISTORY OF PRESENT ILLNESS: Patient is a 63 year old male with poor medical compliance that presents to the emergency department for chief complaint of leg swelling, and shortness of breath. ROS: Constitutional: Negative for fever. Cardiovascular: Negative for chest pain. Respiratory: Positive for shortness of breath Gastrointestinal: Negative for vomiting or abdominal pain Musculoskeletal: Positive for leg swelling Skin: Negative for rash. Neurological: Negative for weakness or numbness. Other than noted above, the 12 point review of systems was reviewed with the patient and were negative, all pertinent findings are included in the HPI. PHYSICAL EXAMINATION: Vital signs reviewed, nursing noted reviewed. GENERAL: Chronically ill appearing male, no acute distress. HEAD: Atraumatic, normocephalic. EYES: Eyes appear normal, conjunctiva are normal. ENT: nares patent, oropharynx clear without exudates. Moist mucous membranes. NECK: ulcerating right neck mass noted on exam. LUNGS: Diminished lung sounds, without acute respiratory distress. HEART: Heart rate tachycardic and regular rhythm without murmurs ABDOMEN: Soft, nontender, normoactive bowel sounds. No rebound, guarding, or rigidity. No masses appreciated. Anasarca noted to the lower abdomen. EXTREMITIES: Severe bilateral LE edema to the hips, with PVD skin changes, po ssible associated cellulitis, with erythema and tenderness to palpation NEUROLOGICAL: No focal neurological deficits. Moves all extremities spontaneously Motor and sensory grossly intact on exam. PSYCH: Normal mood, normal affect. SKIN: Warm, Dry, normal turgor, skin lesion MEDICAL DECISION MAKING: Patient noted to have significant anasarca on exam, and tachycardia, CTA chest negative for PE but noted was significant pleural effusion. His neck mass was concerning and as. Patient admitted for further evaluation and management. Please review detail APC documentation. *Note is created using voice recognition software and may contain spelling, syntax or grammatical errors. 11/29/18 13:47 (ETHEL ENCINAS) - Vital Signs Vital signs: Temp Pulse Resp BP Pulse Ox 97.9 F 90 20 89/63 L 87 L 11/28/18 16:20 11/29/18 04:29 11/29/18 11:30 11/29/18 11:30 11/29/18 11:30 - Laboratory Laboratory results interpreted by me: 11/28/18 11/28/18 11/28/18 17:54 17:54 17:54 RDW 15.6 H Seg Neutrophils % 78.6 H Lymphocytes % 6.3 L Monocytes % 14.2 H Absolute Lymphocytes 0.4 L Glucose 117 H Direct Bilirubin 0.6 H AST 87 H Creatine Kinase 650 H CK-MB (CK-2) NT-Pro-B Natriuret Pep 8440 H Urine Protein Urine Ketones Urine Urobilinogen 11/28/18 11/28/18 11/28/18 19:45 20:30 20:30 RDW Seg Neutrophils % Lymphocytes % Monocytes % Absolute Lymphocytes Glucose Direct Bilirubin AST Creatine Kinase 642 H CK-MB (CK-2) 4.61 H NT-Pro-B Natriuret Pep Urine Protein 30 H Urine Ketones TRACE H Urine Urobilinogen 2.0 H Discharge - Discharge Unit Admitted: [facility] <CARLOS TORO - Last Filed: 11/28/18 20:04> <ETHEL ENCINAS - Last Filed: 11/29/18 13:48> - Discharge Clinical Impression: Anasarca, Venous stasis of lower extremity, Tachycardia Acute exacerbation of CHF (congestive heart failure) Qualifiers: Heart failure type: unspecified Qualified Code(s): I50.9 - Heart failure, unspecified Condition: Stable Disposition: ADMITTED INPATIENT
--- NOTE | 2018-11-28 17:35 | RADIOLOGY REPORT (SQ) ---
EXAM DESCRIPTION: CHEST 2 VIEWS COMPLETED DATE/TIME: 11/28/2018 5:10 pm REASON FOR STUDY: diff breathing COMPARISON: 02/26/2017 EXAM PARAMETERS: NUMBER OF VIEWS: two views TECHNIQUE: Digital Frontal and Lateral radiographic views of the chest acquired. RADIATION DOSE: NA LIMITATIONS: none FINDINGS: LUNGS AND PLEURA: Moderate right pleural effusion with minimal diffuse bilateral interstit ial pulmonary opacity. MEDIASTINUM AND HILAR STRUCTURES: No masses or contour abnormalities. HEART AND VASCULAR STRUCTURES: Cardiomegaly BONES: No acute findings. HARDWARE: None in the chest. OTHER: No other significant finding. IMPRESSION: Moderate right pleural effusion. Minimal diffuse interstitial pulmonary opacity, likely edema in the setting of cardiomegaly. At minimum, recommend radiographic follow-up at 6 to 8 weeks to ensure resolution of a fusion and exclude underlying malignancy. TECHNICAL DOCUMENTATION: JOB ID: [id number] [employer]- All Rights Reserved Reading location - IP/workstation name: [email or web address]
[2018-11-28 18:09] LABS: ABSOLUTE LYMPHOCYTES (AUTO) 0.4 10^3/uL (0.5-4.7); ABSOLUTE MONOCYTES (AUTO) 0.9 10^3/uL (0.1-1.4); ABSOLUTE NEUT (AUTO) 4.9 10^3/uL (1.7-8.2); BASOPHILS % (AUTO) 0.5 % (0-2); EOSINOPHILS % (AUTO) 0.4 % (0-6); HEMATOCRIT 49.4 % (37.9-51.0); HEMOGLOBIN 16.3 g/dL (13.5-17.0); LYMPHOCYTES % (AUTO) 6.3 % (13-45); MEAN CORPUSCULAR HEMOGLOBIN 29.5 pg (27.0-33.4); MEAN CORPUSCULAR HGB CONC 32.9 g/dL (32.0-36.0); MEAN CORPUSCULAR VOLUME 90 fl (80-97); MONOCYTES % (AUTO) 14.2 % (3-13); PLATELET COUNT 186 10^3/uL (150-450); RED BLOOD COUNT 5.52 10^6/uL (4.35-5.55); RED CELL DISTRIBUTION WIDTH 15.6 % (11.5-14.0); SEGMENTED NEUTROPHILS % (AUTO) 78.6 % (42-78); TOTAL CELLS COUNTED % (AUTO) 100 %; WHITE BLOOD COUNT 6.3 10^3/uL (4.0-10.5)
[2018-11-28 18:32] LABS: ALANINE AMINOTRANSFERASE 47 U/L (21-72); ALBUMIN 3.8 g/dL (3.5-5.0); ALKALINE PHOSPHATASE 97 U/L (38-126); ANION GAP 7 (5-19); ASPARTATE AMINO TRANSFERASE 87 U/L (17-59); BILIRUBIN,DIRECT 0.6 mg/dL (0.0-0.4); BILIRUBIN,TOTAL 1.1 mg/dL (0.2-1.3); BLOOD UREA NITROGEN 19 mg/dL (7-20); CALCIUM 9.3 mg/dL (8.4-10.2); CARBON DIOXIDE 30 mmol/L (22-30); CHLORIDE 101 mmol/L (98-107); CREATINE KINASE 650 U/L (55-170); GLUCOSE 117 mg/dL (75-110); POTASSIUM 4.8 mmol/L (3.6-5.0); SODIUM 137.8 mmol/L (137-145); TOTAL PROTEIN 7.1 g/dL (6.3-8.2)
[2018-11-28 18:42] LABS: TROPONIN I 0.016 ng/mL
--- NOTE | 2018-11-28 19:01 | EKG REPORT ---
SEVERITY:- ABNORMAL ECG - ATRIAL FIBRILLATION, V-RATE 97-161 LOW VOLTAGE IN FRONTAL LEADS BORDERLINE R WAVE PROGRESSION, ANTERIOR LEADS : Confirmed by: Mekhi Macdonald MD 28-Nov-2018 19:00:28
--- NOTE | 2018-11-28 19:48 | RADIOLOGY REPORT (SQ) ---
EXAM DESCRIPTION: CTA CHEST COMPLETED DATE/TIME: 11/28/2018 7:25 pm REASON FOR STUDY: SOB/tachycardia COMPARISON: None. TECHNIQUE: CT scan of the chest performed using helical scanning technique with dynamic intravenous contrast injection. Images reviewed with lung, soft tissue and bone windows. Reconstructed coronal and sagittal MPR images reviewed. Additional 3 dimensional post-processing performed to develop Maximal Intensity Projection images (TN P). All images stored on PACS. All CT scanners at this facility use dose modulation, iterative reconstruction, and/or weight based d osing when appropriate to reduce radiation dose to as low as reasonably achievable (ALARA). [facility]: Dose Right [facility]: CareDose [facility]: Dose Right [facility]: Teradose 4D [facility]: [employer] CONTRAST TYPE AND DOSE: contrast/concentration: Isovue 350.00 mg/ml; Total Contrast Delivered: 85.0 ml; Total Saline Delivered: 105.0 ml Contrast bolus optimized for the pulmonary arteries. Not diagnostic for the aorta. RENAL FUNCTION: GFR > 60. RADIATION DOSE: 1434 mGy cm LIMITATIONS: None. FINDINGS: LUNGS AND PLEURA: There is a moderate right pleural effusion with associated atelectasis o r consolidation. Mild centrilobular emphysema. AORTA AND GREAT VESSELS: No aneurysm. Contrast bolus not optimized for the aorta. HEART: No pericardial effusion. Three-vessel coronary artery calcifications. PULMONARY ARTERIES: No emboli visualized in the main pulmonary arteries or the segmental branches. HILAR AND MEDIASTINAL STRUCTURES: No identified masses or abnormal nodes. HARDWARE: None in the chest. UPPER ABDOMEN: Ascites and anasarca. THYROID AND OTHER SOFT TISSUES: No masses. No adenopathy. BONES: No acute or significant finding. 3D MIPS: Confirm above findings. OTHER: No other significant finding. IMPRESSION: 1. Negative examination for pulmonary embolism. 2. Moderate right pleural effusion and associated atelectasis or consolidation. 3. Emphysema. 4. Coronary artery disease. 5. Ascites and anasarca in the included upper abdomen. COMMENT: Quality ID # [id number]: Final reports with documentation of one or more dose reduction techniques (e.g., Automated exposure control, adjustment of the mA and/or kV according to patient size, use of iterative reconstruction technique) TECHNICAL DOCUMENTATION: JOB ID: [id number] [employer]- All Rights Reserved Reading location - IP/workstation name: [email or web address]
--- NOTE | 2018-11-28 19:57 | RADIOLOGY REPORT (SQ) ---
EXAM DESCRIPTION: CT SOFT TISSUE NECK WITH COMPLETED DATE/TIME: 11/28/2018 7:25 pm REASON FOR STUDY: mass R neck COMPARISON: None. TECHNIQUE: Post IV contrasted scanning from skull base through lung apices with review of bone, soft tissue and lung windows. Reconstructed coronal and sagittal MPR images reviewed. All images stored on PACS. All CT scanners at this facility use dose modulation, iterative reconstruction, and/or weight based d osing when appropriate to reduce radiation dose to as low as reasonably achievable (ALARA). [facility]: Dose Right [facility]: CareDose [facility]: Dose Right [facility]: Teradose 4D [facility]: [employer] CONTRAST TYPE AND DOSE: 85 mL Omnipaque 350 iodinated contrast IV RENAL FUNCTION: GFR > 60. RADIATION DOSE: CT Rad equipment meets quality standard of care and radiation dose reduction techniq ues were employed. CTDIvol: 3.2 - 52.9 mGy. DLP: 1435 mGy-cm. . LIMITATIONS: None. FINDINGS: SKULL BASE: Intact. MAJOR SALIVARY GLANDS: There is a large, exophytic mass which appears to arise from the parotid tail measuring 3.5 x 3.2 cm (series 5, image 53). There are additional small heterogeneously enhancing ma sses of the right parotid body measuring 1.7 and 1.3 cm. LYMPHADENOPATHY: No adenopathy. MUCOSAL MASSES OR ASYMMETRY: No mucosal masses or asymmetry. LARYNX/CORDS: No abnormal findings. VASCULAR STRUCTURES: The major vessels are patent. LUNG APICES: Clear. BONES: Intact. THYROID: Normal size. No masses. PARANASAL SINUSES: Clear. OTHER: No other significant finding. IMPRESSION: There is a large, exophytic mass which appears to arise from the parotid tail measuring 3.5 x 3.2 cm. There are additional small heterogeneously enhancing masses of the right parotid body m easuring 1.7 and 1.3 cm. The primary differential consideration is Warthin's tumors. TECHNICAL DOCUMENTATION: JOB ID: [id number] Quality ID # [id number]: Final reports with documentation of one or more dose reduction techniques (e.g., Au tomated exposure control, adjustment of the mA and/or kV according to patient size, use of iterative reconstruction technique) 2010 [employer]- All Rights Reserved Reading location - IP/workstation name: [email or web address]
[2018-11-28] MEDS ORDERED: MAG HYDROX/AL HYDROX/SIMETH SUSP 30 ML UDCUP PO PRN (20:04)
[2018-11-28] MEDS ORDERED: MAGNESIUM HYDROXIDE SUSP 30 ML UDCUP PO PRN (20:04)
[2018-11-28] MEDS ORDERED: ENALAPRILAT DIHYDRATE INJ/PF 1.25 MG/1 ML SDV IV PRN (20:04)
[2018-11-28] MEDS ORDERED: ACETAMINOPHEN 325 MG TABLET PO PRN (20:04)
[2018-11-28 20:11] LABS: APPEARANCE,URINE SLIGHTLY-CLOUDY; BILIRUBIN,URINE NEGATIVE (NEGATIVE); COLOR,URINE AMBER; GLUCOSE, URINE NEGATIVE (NEGATIVE); KETONES,URINE TRACE mg/dL (NEGATIVE); LEUKOCYTE ESTERASE,URINE NEGATIVE (NEGATIVE); NITRITE,URINE NEGATIVE (NEGATIVE); PROTEIN,URINE 30 mg/dL (NEGATIVE); URINE SPECIFIC GRAVITY 1.028
[2018-11-28] MEDS: NITROGLYCERIN 5 MG (0.2 MG/HR) PATCH.TD24 TD SCH (20:26)
[2018-11-28 21:39] LABS: CREATINE KINASE MB 4.61 ng/mL (<4.55); TROPONIN I 0.016 ng/mL
[2018-11-28] MEDS: ENOXAPARIN SODIUM INJ 100 MG/1 ML DISP.SYRIN SUBCUT SCH (22:02)
[2018-11-28] MEDS: POTASSIUM CHLORIDE 10 MEQ CAPSULE.ER PO SCH (22:03)
[2018-11-28] MEDS: FUROSEMIDE INJ/PF 40 MG/4 ML SDV IV SCH (22:03)
[2018-11-28] MEDS: CARVEDILOL 6.25 MG TABLET PO SCH (22:03)
[2018-11-28] MEDS: CEFTRIAXONE 1 GM/D5W RTU 1 GM/50 ML RTUPB IV SCH (23:01)
[2018-11-29] MEDS: DILTIAZEM HCL 60 MG TABLET PO SCH ×4 (00:53→21:23)
--- NOTE | 2018-11-29 02:48 | PDOC H&P ---
History of Present Illness Admission Date/PCP: 11/28/18 20:31 JULI BYRD PA-C Patient complains of: Shortness of breath History of Present Illness: DANIELA GARCIA JR is a 63 year old male with a past medical history of long-term noncompliance of systolic and diastolic heart failure, atrial fibrillation, diabetes, peripheral vascular disease, COPD with tobacco dependence and large right sided fungating parotid tumor. Patient presented to initiate primary care but was referred to the emergency department for A. fib with RVR, shortness of breath, bilateral lower extremity cellulitis. Patient complains of several weeks of worsening lower extremity edema with oozing and worsening erythema. 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 Upon final imaging results he is referred to hospitalist service without treatment. Patient admits to gradual worsening of chronic conditions. Denying chest pain nausea or vomiting. Blood primarily complains of shortness of breath complicated by A. fib with RVR in the 120-140s. Past Medical History Cardiac Medical History: Reports: Atrial Fibrillation, Congestive Heart Failure Pulmonary Medical History: Reports: Bronchitis, Chronic Obstructive Pulmonary Disease (COPD) EENT Medical History: Reports: Other - Right sided 2 x 3 cm fungating parotid tumor Neurological Medical History: Reports: None Denies: Seizures Endocrine Medical History: Reports: Diabetes Mellitus Type 2 Renal/ Medical History: Reports: None Malignancy Medical History: Reports: Other - Parotid tumor Musculoskeltal Medical History: Reports: None Skin Medical History: Reports: Other - Bilateral lower extremity venous stasis Psychiatric Medical History: Reports: Tobacco Dependency Traumatic Medical History: Reports: None Hematology: Reports: None Infectious Medical History: Reports: None Social History Information Source: Patient, [facility] Records Smoking Status: Current Every Day Smoker Frequency of Alcohol Use: Social Hx Recreational Drug Use: No Drugs: None Hx Prescription Drug Abuse: No - Advance Directive Resuscitation Status: Full Code Family History Family History: COPD, Hypertension Parental Family History Reviewed: Yes Children Family History Reviewed: Yes Sibling(s) Family History Reviewed.: Yes Medication/Allergy Home Medications: No Home Medications 11/28/18 Allergies/Adverse Reactions: No Known Allergies Allergy (Verified 02/26/17 14:06) Review of Systems Constitutional: PRESENT: as per HPI, chills, fatigue, weakness, weight gain Eyes: ABSENT: visual disturbances Ears: ABSENT: hearing changes Nose, Mouth, and Throat: PRESENT: other - Right sided 2 x 3 cm fungating parotid tumor with malodorous exudate Cardiovascular: PRESENT: as per HPI, dyspnea on exertion, edema, orthropnea Respiratory: PRESENT: as per HPI, cough, dyspnea. ABSENT: hemoptysis, sputum Gastrointestinal: ABSENT: abdominal pain, constipation, diarrhea, hematemesis, h ematochezia, nausea, vomiting Genitourinary: ABSENT: dysuria, hematuria Musculoskeletal: PRESENT: muscle weakness. ABSENT: joint swelling Integumentary: PRESENT: as per HPI, erythema - Bilateral lower extremity stasis with oozing and cellulitis Right sided 2 x 3 cm fungating parotid tumor with malodorous exudate Neurological: ABSENT: abnormal gait, abnormal speech, confusion, dizziness, focal weakness, syncope Psychiatric: ABSENT: anxiety, depression, homidical ideation, suicidal ideation Endocrine: ABSENT: cold intolerance, heat intolerance, polydipsia, polyuria Hematologic/Lymphatic: ABSENT: easy bleeding, easy bruising Physical Exam Vital Signs: Temp Pulse Resp BP Pulse Ox 97.9 F 120 H 28 H 108/62 100 11/28/18 16:20 11/28/18 16:20 11/28/18 16:20 11/28/18 16:20 11/28/18 16:20 Intake & Output 11/27/18 11/28/18 11/29/18 11:59 11:59 11:59 Intake Total 50 Balance 50 Weight 100.8 kg General appearance: PRESENT: cooperative, disheveled, mild distress, well- developed. ABSENT: well-nourished Head exam: PRESENT: atraumatic, normocephalic Eye exam: PRESENT: conjunctiva pink, EOMI, PERRLA. ABSENT: scleral icterus Ear exam: PRESENT: normal external ear exam Mouth exam: PRESENT: moist, tongue midline Neck exam: PRESENT: full ROM, JVD, tenderness, other - Right sided 2 x 3 cm fungating parotid tumor with malodorous exudate Respiratory exam: PRESENT: accessory muscle use, crackles, prolonged expiratory phas, rales, symmetrical, tachypnea Cardiovascular exam: PRESENT: gallop, irregular rhythm, rubs, +S2, tachycardia Pulses: PRESENT: normal dorsalis pedis pul Vascular exam: PRESENT: pallor GI/Abdominal exam: PRESENT: normal bowel sounds, soft. ABSENT: distended, guarding, mass, organolmegaly, rebound, tenderness Rectal exam: PRESENT: deferred Extremities exam: PRESENT: tenderness - Bilateral lower extremity +2 edema with oozing, rubor and erythema, +2 edema Neurological exam: PRESENT: alert, awake, oriented to person, oriented to place, oriented to time, oriented to situation, CN II-XII grossly intact. ABSENT: motor sensory deficit Psychiatric exam: PRESENT: appropriate affect, normal mood. ABSENT: homicidal i deation, suicidal ideation Skin exam: PRESENT: erythema, other - Bilateral lower extremity +2 edema with oozing, rubor and erythema. ABSENT: intact Results Laboratory Results: 11/28/18 17:54 11/28/18 17:54 11/28/18 11/28/18 11/28/18 17:54 17:54 17:54 WBC 6.3 RBC 5.52 Hgb 16.3 Hct 49.4 MCV 90 MCH 29.5 MCHC 32.9 RDW 15.6 H Plt Count 186 Seg Neutrophils % 78.6 H Lymphocytes % 6.3 L Monocytes % 14.2 H Eosinophils % 0.4 Basophils % 0.5 Absolute Neutrophils 4.9 Absolute Lymphocytes 0.4 L Absolute Monocytes 0.9 Absolute Eosinophils 0.0 Absolute Basophils 0.0 Sodium 137.8 Potassium 4.8 Chloride 101 Carbon Dioxide 30 Anion Gap 7 BUN 19 Creatinine 0.80 Est GFR ( Amer) > 60 Est GFR (Non-Af Amer) > 60 Glucose 117 H Lactic Acid 1.8 Calcium 9.3 Total Bilirubin 1.1 AST 87 H ALT 47 Alkaline Phosphatase 97 Total Protein 7.1 Albumin 3.8 TSH Urine Color Urine Appearance Urine pH Ur Specific [place] Urine Protein Urine Glucose (UA) Urine Ketones Urine Blood Urine Nitrite Ur Leukocyte Esterase Urine WBC (Auto) Urine RBC (Auto) 11/28/18 11/28/18 19:45 20:30 WBC RBC Hgb Hct MCV MCH MCHC RDW Plt Count Seg Neutrophils % Lymphocytes % Monocytes % Eosinophils % Basophils % Absolute Neutrophils Absolute Lymphocytes Absolute Monocytes Absolute Eosinophils Absolute Basophils Sodium Potassium Chloride Carbon Dioxide Anion Gap BUN Creatinine Est GFR ( Amer) Est GFR (Non-Af Amer) Glucose Lactic Acid Calcium Total Bilirubin AST ALT Alkaline Phosphatase Total Protein Albumin TSH 1.44 Urine Color ARNOL Urine Appearance SLIGHTLY-CLOUDY Urine pH 5.0 Ur Specific [place] 1.028 Urine Protein 30 H Urine Glucose (UA) NEGATIVE Urine Ketones TRACE H Urine Blood NEGATIVE Urine Nitrite NEGATIVE Ur Leukocyte Esterase NEGATIVE Urine WBC (Auto) 1 Urine RBC (Auto) 1 11/28/18 11/28/18 11/28/18 17:54 17:54 20:30 Creatine Kinase 650 H 642 H CK-MB (CK-2) Troponin I 0.016 NT-Pro-B Natriuret Pep 8440 H 11/28/18 20:30 Creatine Kinase CK-MB (CK-2) 4.61 H Troponin I 0.016 NT-Pro-B Natriuret Pep Impressions: Chest X-Ray 11/28/18 16:45 IMPRESSION: Moderate right pleural effusion. Minimal diffuse interstitial pulmonary opacity, likely edema in the setting of cardiomegaly. At minimum, recommend radiographic follow-up at 6 to 8 weeks to ensure resolution of a fusion and exclude underlying malignancy. Chest/Abdomen CTA 11/28/18 18:26 IMPRESSION: 1. Negative examination for pulmonary embolism. 2. Moderate right pleural effusion and associated atelectasis or consolidation. 3. Emphysema. 4. Coronary artery disease. 5. Ascites and anasarca in the included upper abdomen. Soft Tissue Neck CT 11/28/18 18:50 IMPRESSION: There is a large, exophytic mass which appears to arise from the parotid tail measuring 3.5 x 3.2 cm. There are additional small heterogeneously enhancing masses of the right parotid body measuring 1.7 and 1.3 cm. The primary differential consideration is Warthin's tumors. Assessment and Plan - Diagnosis (1) Atrial fibrillation Qualifiers: Atrial fibrillation type: unspecified Qualified Code(s): I48.91 - Unspecified atrial fibrillation Is this a current diagnosis for this admission?: Yes Plan: IV Cardizem, Lopressor as needed, Lovenox, follow-up cardiac enzymes (2) Acute exacerbation of CHF (congestive heart failure) Qualifiers: Heart failure type: unspecified Qualified Code(s): I50.9 - Heart failure, unspecified Is this a current diagnosis for this admission?: Yes Plan: CHF care set deployed, optimize volume status, rate control, follow-up 2D echo chemistry (3) Venous stasis of lower extremity Is this a current diagnosis for this admission?: Yes Plan: Complicated by #1 and 2. Suspected early strep cellulitis. Rocephin initiated. Follow-up CBC (4) Mass of parotid gland Is this a current diagnosis for this admission?: Yes Plan: ENT consult. (5) Bilateral lower leg cellulitis Is this a current diagnosis for this admission?: Yes Plan: Lower extremity elevation, erythema suggestive of strep, Rocephin initiated. Follow-up CBC and blood culture - Time Time Spent with patient: 35 or more minutes - Inpatient Certification Medical Necessity: Need Close Monitoring Due to Risk of Patient Decompensation
[2018-11-29 02:53] LABS: HEMOGLOBIN 17.1 g/dL (13.5-17.0); MEAN CORPUSCULAR HEMOGLOBIN 29.5 pg (27.0-33.4); MEAN CORPUSCULAR HGB CONC 32.9 g/dL (32.0-36.0); MEAN CORPUSCULAR VOLUME 90 fl (80-97); PLATELET COUNT 175 10^3/uL (150-450); RED BLOOD COUNT 5.82 10^6/uL (4.35-5.55); RED CELL DISTRIBUTION WIDTH 15.4 % (11.5-14.0); WHITE BLOOD COUNT 5.3 10^3/uL (4.0-10.5)
[2018-11-29 03:06] LABS: ANION GAP 10 (5-19); BLOOD UREA NITROGEN 19 mg/dL (7-20); CALCIUM 9.5 mg/dL (8.4-10.2); CARBON DIOXIDE 32 mmol/L (22-30); CHLORIDE 99 mmol/L (98-107); GLUCOSE 112 mg/dL (75-110); SODIUM 141.1 mmol/L (137-145)
[2018-11-29 03:16] LABS: CREATINE KINASE MB 6.62 ng/mL (<4.55); TROPONIN I 0.019 ng/mL
[2018-11-29] MEDS: DOCUSATE SODIUM 100 MG CAPSULE PO SCH (09:26)
[2018-11-29] MEDS: NITROGLYCERIN 5 MG (0.2 MG/HR) PATCH.TD24 TD SCH (09:26)
[2018-11-29] MEDS: CARVEDILOL 6.25 MG TABLET PO SCH ×2 (09:26→21:23)
[2018-11-29] MEDS: ASPIRIN 81 MG TABLET, ENT COATED PO SCH (09:27)
[2018-11-29] MEDS: CEFTRIAXONE 1 GM/D5W RTU 1 GM/50 ML RTUPB IV SCH (09:28)
[2018-11-29] MEDS: ENOXAPARIN SODIUM INJ 100 MG/1 ML DISP.SYRIN SUBCUT SCH ×2 (09:29→21:24)
[2018-11-29] MEDS: POTASSIUM CHLORIDE 10 MEQ CAPSULE.ER PO SCH ×2 (09:52→21:23)
[2018-11-29] MEDS: FUROSEMIDE INJ/PF 40 MG/4 ML SDV IV SCH ×2 (09:52→21:24)
[2018-11-29 10:49] LABS: CREATINE KINASE MB 6.43 ng/mL (<4.55); TROPONIN I 0.017 ng/mL
--- NOTE | 2018-11-29 20:08 | XCELERA REPORT ---
[address] [address] Transthoracic Echocardiogram Report Name: JOSE SPRAGUE DANIELAJR Age: 63 yrs Gender: Male : 1955 Patient Status: Inpatient Patient Location: [place] [address]^A Study Date: 11/29/2018 09:20 AM Height: 68 in Weight: 222 lb BSA: 2.1 m2 Procedure: A two-dimensional transthoracic echocardiogram with color flow and Doppler was performed. The study was technically limited with all images being suboptimal in quality. Reason For Study: afib chf History: afib chf. Ordering Physician: SENTHIL CA Performed By: Narcisa Weaver Interpretation Summary The left ventricle is mildly dilated. There is normal left ventricular wall thickness. LV EF is 25% Left ventricular systolic function is severely reduced. There is severe global hypokinesis of the left ventricle. There is no thrombus. Cannot assess ASD,VSD,or PFO presence. The right atrium is moderately dilated. The left atrium is moderately dilated. There is moderate mitral annular calcification. There is no evidence of mitral valve prolapse. There is no vegetation seen on the mitral valve. There is no mitral valve stenosis. There is a mild amount of mitral regurgitation There is no aortic valvular vegetation. There is aortic sclerosis without aortic stenosis. There is no LVOT obstruction. No aortic regurgitation is present. There is no tricuspid stenosis. There is a mild amount of tricuspid regurgitation RVSP is normal at 24 to 29 mm of Hg , with RA mean of 5 to 10.No pulmonary hypertension. There is no pulmonic valvular stenosis. There is a mild to moderate amount of pulmonic regurgitation The aortic root is normal size. The inferior vena cava appeared normal and decreased > 50% with respiration (RAP 5-10 mmHg) There is no pericardial effusion. MMode/2D Measurements & Calculations RVDd: 4.4 cm LVIDd: 5.5 cm FS: 11.6 % Ao root diam: 3.4 cm IVSd: 0.96 cm LVIDs: 4.8 cm EDV(Teich): LVPWd: 1.3 cm 146.4 ml Ao root area: ESV(Teich): 9.1 cm2 110.1 ml EF(Teich): 24.8 % EDV(MOD-sp4): SV(MOD-sp4): 144.1 ml 76.7 ml ESV(MOD-sp4): 67.4 ml EF(MOD-sp4): 53.2 % Doppler Measurements & Calculations Ao V2 max: LV V1 max PG: PA V2 max: PI end-d tarik: 131.5 cm/sec 1.3 mmHg 42.6 cm/sec 97.2 cm/sec Ao max P.9 mmHg LV V1 mean PG: PA max PG: Ao V2 mean: 0.56 mmHg 0.73 mmHg 93.8 cm/sec LV V1 max: 56.5 cm/sec Ao mean P.0 mmHg LV V1 mean: Ao V2 VTI: 19.5 cm 33.6 cm/sec LV V1 VTI: 10.5 cm LV dP/dt: 603.3 mmHg/s TR max tarik: 212.6 cm/sec TR max P.1 mmHg Left Ventricle The left ventricle is mildly dilated. There is normal left ventricular wall thickness. LV EF is 25%. Left ventricular systolic function is severely reduced. LV diastolic function could not be adequately assessed due to atrial fibrilation. There is severe global hypokinesis of the left ventricle. There is no thrombus. Cannot assess ASD,VSD,or PFO presence. Right Ventricle The right ventricle is moderately dilated. The right ventricular systolic function is moderately reduced. Atria The right atrium is moderately dilated. The left atrium is moderately dilated. Mitral Valve There is moderate mitral annular calcification. There is no evidence of mitral valve prolapse. There is no vegetation seen on the mitral valve. There is no mitral valve stenosis. There is a mild amount of mitral regurgitation. Aortic Valve There is no aortic valvular vegetation. There is aortic sclerosis without aortic stenosis. There is no LVOT obstruction. No aortic regurgitation is present. Tricuspid Valve There is no tricuspid stenosis. There is a mild amount of tricuspid regurgitation. RVSP is normal at 24 to 29 mm of Hg , with RA mean of 5 to 10.No pulmonary hypertension. Pulmonic Valve There is no pulmonic valvular stenosis. There is a mild to moderate amount of pulmonic regurgitation. Great Vessels The aortic root is normal size. The inferior vena cava appeared normal and decreased > 50% with respiration (RAP 5-10 mmHg). Effusions There is no pericardial effusion. : SENTHIL CA > Schuyler, Magali
[2018-11-29] MEDS ORDERED: LORAZEPAM INJ 2 MG/1 ML VIAL ONE (21:15)
[2018-11-29] MEDS ORDERED: THIAMINE HCL INJ 200 MG/2 ML VIAL ONE (21:37)
[2018-11-29] MEDS ORDERED: LORAZEPAM INJ 2 MG/1 ML VIAL IV ONE (22:00)
[2018-11-29] MEDS ORDERED: THIAMINE HCL INJ 200 MG/2 ML VIAL IM ONE (22:00)
[2018-11-29] MEDS: VANCOMYCIN HCL 1,500 MG in DEXTROSE 5%-WATER 250 ML IV SCH (22:24)
[2018-11-29] MEDS: THIAMINE HCL 100 MG, FOLIC ACID 1 MG in NORMAL SALINE 250 ML IV SCH (22:24)
[2018-11-30 05:10] LABS: ABSOLUTE LYMPHOCYTES (AUTO) 0.3 10^3/uL (0.5-4.7); ABSOLUTE MONOCYTES (AUTO) 0.9 10^3/uL (0.1-1.4); ABSOLUTE NEUT (AUTO) 4.2 10^3/uL (1.7-8.2); BASOPHILS % (AUTO) 0.8 % (0-2); EOSINOPHILS % (AUTO) 0.3 % (0-6); HEMATOCRIT 49.1 % (37.9-51.0); LYMPHOCYTES % (AUTO) 5.7 % (13-45); MEAN CORPUSCULAR HEMOGLOBIN 29.3 pg (27.0-33.4); MEAN CORPUSCULAR HGB CONC 32.6 g/dL (32.0-36.0); MEAN CORPUSCULAR VOLUME 90 fl (80-97); MONOCYTES % (AUTO) 15.9 % (3-13); PLATELET COUNT 155 10^3/uL (150-450); RED BLOOD COUNT 5.45 10^6/uL (4.35-5.55); RED CELL DISTRIBUTION WIDTH 15.7 % (11.5-14.0); SEGMENTED NEUTROPHILS % (AUTO) 77.3 % (42-78); TOTAL CELLS COUNTED % (AUTO) 100 %; WHITE BLOOD COUNT 5.4 10^3/uL (4.0-10.5)
[2018-11-30 05:20] LABS: ANION GAP 8 (5-19); BLOOD UREA NITROGEN 25 mg/dL (7-20); CALCIUM 9.1 mg/dL (8.4-10.2); CARBON DIOXIDE 31 mmol/L (22-30); CHLORIDE 102 mmol/L (98-107); GLUCOSE 143 mg/dL (75-110); POTASSIUM 5.7 mmol/L (3.6-5.0); SODIUM 140.9 mmol/L (137-145)
[2018-11-30] MEDS: DILTIAZEM HCL 60 MG TABLET PO SCH ×2 (05:48→15:06)
[2018-11-30] MEDS ORDERED: LORAZEPAM INJ 2 MG/1 ML VIAL ONE (08:06)
[2018-11-30] MEDS ORDERED: LORAZEPAM INJ 2 MG/1 ML VIAL IV ONE (08:10)
[2018-11-30] MEDS ORDERED: FUROSEMIDE INJ/PF 40 MG/4 ML SDV IV ONE (08:10)
[2018-11-30] MEDS: DOCUSATE SODIUM 100 MG CAPSULE PO SCH (09:12)
[2018-11-30] MEDS: FUROSEMIDE INJ/PF 40 MG/4 ML SDV IV SCH ×2 (09:12→21:01)
[2018-11-30] MEDS: POTASSIUM CHLORIDE 10 MEQ CAPSULE.ER PO SCH (09:12)
[2018-11-30] MEDS: CARVEDILOL 6.25 MG TABLET PO SCH ×2 (09:12→21:01)
[2018-11-30] MEDS: ASPIRIN 81 MG TABLET, ENT COATED PO SCH (09:12)
[2018-11-30] MEDS: NITROGLYCERIN 5 MG (0.2 MG/HR) PATCH.TD24 TD SCH (09:14)
[2018-11-30 09:19] LABS: ARTERIAL BLOOD BASE EXCESS -0.9 mmol/L; ARTERIAL BLOOD FIO2 35%; ARTERIAL BLOOD H2CO3 1.75 mmol/L (1.05-1.35); ARTERIAL BLOOD HCO3 27.2 mmol/L (20-24); ARTERIAL BLOOD O2 SATURATION 93.7 % (94-98); ARTERIAL BLOOD PCO2 58.1 mmHg (35-45); ARTERIAL BLOOD PH 7.29 (7.35-7.45); ARTERIAL BLOOD PO2 77.3 mmHg (80-100)
--- NOTE | 2018-11-30 09:51 | RADIOLOGY REPORT (SQ) ---
EXAM DESCRIPTION: CHEST SINGLE VIEW COMPLETED DATE/TIME: 11/30/2018 9:36 am REASON FOR STUDY: sob COMPARISON: None. EXAM PARAMETERS: NUMBER OF VIEWS: One view. TECHNIQUE: Single frontal radiographic view of the chest acquired. RADIATION DOSE: NA LIMITATIONS: None. FINDINGS: LUNGS AND PLEURA: Increasing airspace disease in the right lower lobe. Right pleural effu erin. Left lung clear. MEDIASTINUM AND HILAR STRUCTURES: No masses. Contour normal. HEART AND VASCULAR STRUCTURES: Heart normal in size. Normal vasculature. BONES: No acute findings. HARDWARE: None in the chest. OTHER: No other significant finding. IMPRESSION: RIGHT PLEURAL EFFUSION. INCREASING AIRSPACE DISEASE IN THE RIGHT LOWER LOBE MAY BE DUE TO ATELECTASIS ALTHOUGH PNEUMONIA CANNOT BE EXCLUDED. TECHNICAL DOCUMENTATION: JOB ID: [id number] [employer]- All Rights Reserved Reading location - IP/workstation name: [email or web address]
--- NOTE | 2018-11-30 10:09 | PDOC PROGRESS REPORT ---
Subjective Progress Note for:: 11/29/18 Subjective:: Erythematous swollen legs with multiple weeping spots. His pitting edema is up to the mid torso. He also has a large fungating mass in the right angle of the jaw. Reason For Visit: AFIB HEART FAILURE Physical Exam Vital Signs: Temp Pulse Resp BP Pulse Ox 97.9 F 90 20 89/63 L 87 L 11/28/18 16:20 11/29/18 04:29 11/29/18 11:30 11/29/18 11:30 11/29/18 11:30 Intake & Output 11/28/18 11/29/18 11/30/18 06:59 06:59 06:59 Intake Total 120 Balance 120 Weight 100.8 kg General appearance: PRESENT: cooperative, disheveled, mild distress, other - Extremely frail and winston appearing 63-year-old male sitting up on the edge of the bed. Head exam: PRESENT: atraumatic, normocephalic, other - Large exophytic mass right angle of the jaw. Eye exam: PRESENT: conjunctiva pink. ABSENT: scleral icterus Ear exam: PRESENT: normal external ear exam Neck exam: PRESENT: other - Large fungating mass protruding from the skin. It is extremely hard. There is no drainage noted.. ABSENT: tracheal deviation Respiratory exam: PRESENT: rales, symmetrical, unlabored. ABSENT: accessory muscle use, rhonchi, tachypnea, wheezes Cardiovascular exam: PRESENT: irregular rhythm GI/Abdominal exam: PRESENT: firm, soft, other - 1+ pitting edema through the abdomen.. ABSENT: tenderness Rectal exam: PRESENT: deferred Gentrourinary exam: ABSENT: indwelling catheter Extremities exam: PRESENT: pedal edema, other - Tense edema lower extremities. Multiple punctate foci of weeping. Large erythematous areas on both legs. Neurological exam: PRESENT: alert, awake, oriented to person, oriented to place, oriented to time, oriented to situation Psychiatric exam: PRESENT: flat affect. ABSENT: agitated, anxious Focused psych exam: ABSENT: delusional, restlessness Skin exam: PRESENT: erythema, warm, other - Weeping Results Laboratory Results: 11/29/18 02:24 11/29/18 02:24 11/28/18 11/28/18 11/28/18 17:54 17:54 17:54 WBC 6.3 RBC 5.52 Hgb 16.3 Hct 49.4 MCV 90 MCH 29.5 MCHC 32.9 RDW 15.6 H Plt Count 186 Seg Neutrophils % 78.6 H Lymphocytes % 6.3 L Monocytes % 14.2 H Eosinophils % 0.4 Basophils % 0.5 Absolute Neutrophils 4.9 Absolute Lymphocytes 0.4 L Absolute Monocytes 0.9 Absolute Eosinophils 0.0 Absolute Basophils 0.0 Sodium 137.8 Potassium 4.8 Chloride 101 Carbon Dioxide 30 Anion Gap 7 BUN 19 Creatinine 0.80 Est GFR ( Amer) > 60 Est GFR (Non-Af Amer) > 60 Glucose 117 H Lactic Acid 1.8 Calcium 9.3 Total Bilirubin 1.1 AST 87 H ALT 47 Alkaline Phosphatase 97 Total Protein 7.1 Albumin 3.8 TSH Urine Color Urine Appearance Urine pH Ur Specific [place] Urine Protein Urine Glucose (UA) Urine Ketones Urine Blood Urine Nitrite Ur Leukocyte Esterase Urine WBC (Auto) Urine RBC (Auto) 11/28/18 11/28/18 11/29/18 19:45 20:30 02:24 WBC 5.3 RBC 5.82 H Hgb 17.1 H Hct 52.0 H MCV 90 MCH 29.5 MCHC 32.9 RDW 15.4 H Plt Count 175 Seg Neutrophils % Lymphocytes % Monocytes % Eosinophils % Basophils % Absolute Neutrophils Absolute Lymphocytes Absolute Monocytes Absolute Eosinophils Absolute Basophils Sodium Potassium Chloride Carbon Dioxide Anion Gap BUN Creatinine Est GFR ( Amer) Est GFR (Non-Af Amer) Glucose Lactic Acid Calcium Total Bilirubin AST ALT Alkaline Phosphatase Total Protein Albumin TSH 1.44 Urine Color [place] Urine Appearance SLIGHTLY-CLOUDY Urine pH 5.0 Ur Specific [place] 1.028 Urine Protein 30 H Urine Glucose (UA) NEGATIVE Urine Ketones TRACE H Urine Blood NEGATIVE Urine Nitrite NEGATIVE Ur Leukocyte Esterase NEGATIVE Urine WBC (Auto) 1 Urine RBC (Auto) 1 11/29/18 02:24 WBC RBC Hgb Hct MCV MCH MCHC RDW Plt Count Seg Neutrophils % Lymphocytes % Monocytes % Eosinophils % Basophils % Absolute Neutrophils Absolute Lymphocytes Absolute Monocytes Absolute Eosinophils Absolute Basophils Sodium 141.1 Potassium 5.0 Chloride 99 Carbon Dioxide 32 H Anion Gap 10 BUN 19 Creatinine 0.81 Est GFR ( Amer) > 60 Est GFR (Non-Af Amer) > 60 Glucose 112 H Lactic Acid Calcium 9.5 Total Bilirubin AST ALT Alkaline Phosphatase Total Protein Albumin TSH Urine Color Urine Appearance Urine pH Ur Specific [place] Urine Protein Urine Glucose (UA) Urine Ketones Urine Blood Urine Nitrite Ur Leukocyte Esterase Urine WBC (Auto) Urine RBC (Auto) 11/28/18 11/28/18 11/28/18 17:54 17:54 20:30 Creatine Kinase 650 H 642 H CK-MB (CK-2) Troponin I 0.016 NT-Pro-B Natriuret Pep 8440 H 11/28/18 11/29/18 11/29/18 20:30 02:24 02:24 Creatine Kinase 686 H CK-MB (CK-2) 4.61 H 6.62 H Troponin I 0.016 0.019 NT-Pro-B Natriuret Pep 11/29/18 11/29/18 10:04 10:04 Creatine Kinase 560 H CK-MB (CK-2) 6.43 H Troponin I 0.017 NT-Pro-B Natriuret Pep Impressions: Chest X-Ray 11/28/18 16:45 IMPRESSION: Moderate right pleural effusion. Minimal diffuse interstitial pulmonary opacity, likely edema in the setting of cardiomegaly. At minimum, recommend radiographic follow-up at 6 to 8 weeks to ensure resolution of a fusio n and exclude underlying malignancy. Chest/Abdomen CTA 11/28/18 18:26 IMPRESSION: 1. Negative examination for pulmonary embolism. 2. Moderate right pleural effusion and associated atelectasis or consolidation. 3. Emphysema. 4. Coronary artery disease. 5. Ascites and anasarca in the included upper abdomen. Soft Tissue Neck CT 11/28/18 18:50 IMPRESSION: There is a large, exophytic mass which appears to arise from the parotid tail measuring 3.5 x 3.2 cm. There are additional small heterogeneously enhancing masses of the right parotid body measuring 1.7 and 1.3 cm. The primary differential consideration is Warthin's tumors. Assessment and Plan - Diagnosis (1) Atrial fibrillation Qualifiers: Atrial fibrillation type: unspecified Qualified Code(s): I48.91 - Unspecified atrial fibrillation Is this a current diagnosis for this admission?: Yes Plan: The patient likely has paroxysmal atrial fibrillation versus chronic. He states he was on medication for this but ran out of insurance and has not had medications in over a year. He is on carvedilol and diltiazem at this time. Continue to monitor rate. He is also on therapeutic Lovenox. (2) Anasarca Is this a current diagnosis for this admission?: Yes Plan: The patient has pitting edema through the lower portion of the torso. His serum albumin is in the normal range. I have ordered urine studies. This could be for untreated congestive heart failure as he has been without medications for a year. He states that he is just noticed the swelling recently but it is more likely that there has been a gradual onset with acute exacerbation of late. (3) Acute exacerbation of CHF (congestive heart failure) Qualifiers: Heart failure type: systolic Qualified Code(s): I50.23 - Acute on chronic systolic (congestive) heart failure Is this a current diagnosis for this admission?: Yes Plan: There is suggestion of pulmonary edema and there is a pleural effusion. Echocardiogram revealed an ejection fraction of 25%. The patient will need aggressive diuresis as well as possible inotropes. (4) Bilateral lower leg cellulitis Is this a current diagnosis for this admission?: Yes Plan: The patient does not have an elevated white blood cell count He does have multiple punctate areas of weeping and these will allow [place] V bacteria. Will need antibiotic therapy. I believe there is a significant component of venous stasis involved as well. (5) Venous stasis of lower extremity Is this a current diagnosis for this admission?: Yes Plan: At this point the patient may benefit from leg elevation and compression in addition to diuresis. (6) Mass of parotid gland Is this a current diagnosis for this admission?: Yes Plan: The patient has very large mass of the parotid gland. He looks winston and this could certainly be a malignant lesion. Of asked Dr. Ruby finn to see the patient. - Time Time Spent with patient: 15-24 minutes Medications reviewed and adjusted accordingly: Yes
[2018-11-30] MEDS: PIPERACILLIN SODIUM/TAZOBACTAM 4.5 GM in NORMAL SALINE 100 ML IV SCH ×3 (11:09→20:30)
[2018-11-30] MEDS: ENOXAPARIN SODIUM INJ 100 MG/1 ML DISP.SYRIN SUBCUT SCH ×2 (11:09→21:01)
[2018-11-30] MEDS: VANCOMYCIN HCL 1,500 MG in DEXTROSE 5%-WATER 250 ML IV SCH ×2 (11:36→21:00)
--- NOTE | 2018-11-30 12:26 | PDOC PROGRESS REPORT ---
Subjective Progress Note for:: 11/30/18 Subjective:: This is 63 years old male patient with past medical history of peripheral arterial disease, atrial fibrillation, congestive heart failure, COPD, diabetes mellitus, fungating right parotid tumor, tobacco dependence, medical noncompliance presents with chief complaint of shortness of breath and bilateral leg swelling. Patient is known for long-standing medical noncompliance. He smokes a pack a day and drinks beer on a daily basis. When patient seen at ER he was in A. fib with rapid ventricular response. His BNP is [address] scan reported as moderate right pleural effusion associated atelectasis or consolidation. This morning patient seen and examined at bedside. He was in severe respiratory distress evidenced by tachypnea, wheezing and labored breathing. Stat ABG revealed respiratory acidosis with pH of 7.29 PCO2 of 58 and PO2 of 77. Stat chest x-ray reported as increasing airspace disease, probably atelectasis but right lower lobe pneumonia could not be ruled out. Patient given stat dose of Lasix, put on BiPAP and transferred to ICU for close monitoring. Reason For Visit: AFIB HEART FAILURE Physical Exam Vital Signs: Temp Pulse Resp BP Pulse Ox 97.5 F 95 22 H 101/61 96 11/30/18 07:42 11/30/18 10:00 11/30/18 10:00 11/30/18 10:00 11/30/18 10:00 Intake & Output 11/29/18 11/30/18 12/01/18 06:59 06:59 06:59 Intake Total 120 788.2 100 Output Total 200 Balance 120 788.2 -100 Weight 100.8 kg 97.2 kg General appearance: PRESENT: obese, severe distress Head exam: PRESENT: atraumatic Head Image: 1 - 3 x 3 cm right fungating parotid mass Eye exam: PRESENT: conjunctiva pink Neck exam: ABSENT: carotid bruit, JVD, lymphadenopathy, thyromegaly Respiratory exam: PRESENT: crackles, decreased breath sounds, wheezes Cardiovascular exam: PRESENT: irregular rhythm GI/Abdominal exam: PRESENT: ascites Extremities exam: PRESENT: +2 edema Neurological exam: PRESENT: alert, altered Results Laboratory Results: 11/30/18 04:24 11/30/18 04:24 11/30/18 11/30/18 11/30/18 04:24 04:24 08:46 WBC 5.4 RBC 5.45 Hgb 16.0 Hct 49.1 MCV 90 MCH 29.3 MCHC 32.6 RDW 15.7 H Plt Count 155 Seg Neutrophils % 77.3 Lymphocytes % 5.7 L Monocytes % 15.9 H Eosinophils % 0.3 Basophils % 0.8 Absolute Neutrophils 4.2 Absolute Lymphocytes 0.3 L Absolute Monocytes 0.9 Absolute Eosinophils 0.0 Absolute Basophils 0.0 Carbonic Acid Cancelled HCO3/H2CO3 Ratio Cancelled ABG pH Cancelled ABG pCO2 Cancelled ABG pO2 Cancelled ABG HCO3 Cancelled ABG O2 Saturation Cancelled ABG Base Excess Cancelled FiO2 Cancelled Sodium 140.9 Potassium 5.7 H Chloride 102 Carbon Dioxide 31 H Anion Gap 8 BUN 25 H Creatinine 1.09 Est GFR ( Amer) > 60 Est GFR (Non-Af Amer) > 60 Glucose 143 H Calcium 9.1 Magnesium 2.2 11/30/18 09:07 WBC RBC Hgb Hct MCV MCH MCHC RDW Plt Count Seg Neutrophils % Lymphocytes % Monocytes % Eosinophils % Basophils % Absolute Neutrophils Absolute Lymphocytes Absolute Monocytes Absolute Eosinophils Absolute Basophils Carbonic Acid 1.75 H HCO3/H2CO3 Ratio 15:1 ABG pH 7.29 L ABG pCO2 58.1 H ABG pO2 77.3 L ABG HCO3 27.2 H ABG O2 Saturation 93.7 L ABG Base Excess -0.9 FiO2 35% Sodium Potassium Chloride Carbon Dioxide Anion Gap BUN Creatinine Est GFR ( Amer) Est GFR (Non-Af Amer) Glucose Calcium Magnesium 11/28/18 11/28/18 11/28/18 17:54 17:54 20:30 Creatine Kinase 650 H 642 H CK-MB (CK-2) Troponin I 0.016 NT-Pro-B Natriuret Pep 8440 H 11/28/18 11/29/18 11/29/18 20:30 02:24 02:24 Creatine Kinase 686 H CK-MB (CK-2) 4.61 H 6.62 H Troponin I 0.016 0.019 NT-Pro-B Natriuret Pep 11/29/18 11/29/18 10:04 10:04 Creatine Kinase 560 H CK-MB (CK-2) 6.43 H Troponin I 0.017 NT-Pro-B Natriuret Pep Impressions: Chest/Abdomen CTA 11/28/18 18:26 IMPRESSION: 1. Negative examination for pulmonary embolism. 2. Moderate right pleural effusion and associated atelectasis or consolidation. 3. Emphysema. 4. Coronary artery disease. 5. Ascites and anasarca in the included upper abdomen. Soft Tissue Neck CT 11/28/18 18:50 IMPRESSION: There is a large, exophytic mass which appears to arise from the parotid tail measuring 3.5 x 3.2 cm. There are additional small heterogeneously enhancing masses of the right parotid body measuring 1.7 and 1.3 cm. The primary differential consideration is Warthin's tumors. Chest X-Ray 11/30/18 00:00 IMPRESSION: RIGHT PLEURAL EFFUSION. INCREASING AIRSPACE DISEASE IN THE RIGHT LOWER LOBE MAY BE DUE TO ATELECTASIS ALTHOUGH PNEUMONIA CANNOT BE EXCLUDED. Assessment and Plan - Diagnosis (1) Atrial fibrillation with RVR Is this a current diagnosis for this admission?: Yes Plan: Rates controlled after he is given Cardizem. (2) RLL PNA and pleural effusion Is this a current diagnosis for this admission?: Yes Plan: Patient has been started empirically on vancomycin and Zosyn. Based on his clinical progress and culture results will adjust his antibiotics. (3) Acute on chronic systolic congestive heart failure, NYHA class 2 Is this a current diagnosis for this admission?: Yes Plan: Patient has been started on IV Lasix. His blood pressure is on the lower side so managing his CHF is a bit tricky. So we will have to walk a fine line. (4) Bilateral cellulitis of lower leg Is this a current diagnosis for this admission?: Yes Plan: Continue the above antibiotics. (5) Right parotid gland tumor Is this a current diagnosis for this admission?: Yes Plan: Dr. Mai consulted for his input. (6) COPD (chronic obstructive pulmonary disease) Qualifiers: Emphysema type: unspecified Is this a current diagnosis for this admission?: Yes Plan: Continue with bronchodilators (7) Type 2 diabetes mellitus Is this a current diagnosis for this admission?: Yes Plan: Continue sliding scale. (8) Alcohol dependence Is this a current diagnosis for this admission?: Yes Plan: Patient will be put on alcohol withdrawal protocol. (9) Tobacco dependence Is this a current diagnosis for this admission?: Yes Plan: We will prescribe nicotine patch and will encourage patient to quit smoking when he wakes up. (10) Obesity (BMI 30.0-34.9) Is this a current diagnosis for this admission?: Yes Plan: Patient will be encouraged to do lifestyle modification.
[2018-11-30] MEDS ORDERED: NORMAL SALINE 1000 ML 1,000 ML IV ONE (12:45)
[2018-11-30 13:33] LABS: APPEARANCE,URINE CLOUDY; BILIRUBIN,URINE NEGATIVE (NEGATIVE); COLOR,URINE YELLOW; GLUCOSE, URINE NEGATIVE (NEGATIVE); KETONES,URINE NEGATIVE (NEGATIVE); LEUKOCYTE ESTERASE,URINE SMALL (NEGATIVE); NITRITE,URINE NEGATIVE (NEGATIVE); PROTEIN,URINE NEGATIVE (NEGATIVE); URINE SPECIFIC GRAVITY 1.017; UROBILINOGEN,URINE NEGATIVE mg/dL (<2.0)
[2018-11-30] MEDS: NORMAL SALINE 1000 ML 1,000 ML IV PRN (15:16)
[2018-11-30] MEDS: LORAZEPAM INJ 2 MG/1 ML VIAL IV PRN ×2 (15:16→20:31)
[2018-11-30 16:47] LABS: ARTERIAL BLOOD BASE EXCESS -0.7 mmol/L; ARTERIAL BLOOD H2CO3 1.57 mmol/L (1.05-1.35); ARTERIAL BLOOD HCO3 26.4 mmol/L (20-24); ARTERIAL BLOOD O2 SATURATION 95.9 % (94-98); ARTERIAL BLOOD PCO2 52.2 mmHg (35-45); ARTERIAL BLOOD PH 7.32 (7.35-7.45); ARTERIAL BLOOD PO2 87.9 mmHg (80-100)
[2018-11-30 16:50] LABS: ARTERIAL BLOOD FIO2 35%
[2018-11-30] MEDS ORDERED: DILTIAZEM HCL/D5W 125 MG/125 ML RTUINJ IV PRN (20:40)
[2018-11-30] MEDS: THIAMINE HCL 100 MG, FOLIC ACID 1 MG in NORMAL SALINE 250 ML IV SCH (21:00)
[2018-12-01] MEDS: LORAZEPAM INJ 2 MG/1 ML VIAL IV PRN ×6 (01:02→23:09)
[2018-12-01] MEDS: NORMAL SALINE 1000 ML 1,000 ML IV PRN ×2 (01:45→23:15)
[2018-12-01] MEDS: PIPERACILLIN SODIUM/TAZOBACTAM 4.5 GM in NORMAL SALINE 100 ML IV SCH ×4 (02:25→21:10)
[2018-12-01 06:05] LABS: HEMATOCRIT 46.4 % (37.9-51.0); HEMOGLOBIN 15.2 g/dL (13.5-17.0); MEAN CORPUSCULAR HEMOGLOBIN 29.3 pg (27.0-33.4); MEAN CORPUSCULAR HGB CONC 32.7 g/dL (32.0-36.0); MEAN CORPUSCULAR VOLUME 90 fl (80-97); PLATELET COUNT 134 10^3/uL (150-450); RED BLOOD COUNT 5.18 10^6/uL (4.35-5.55); RED CELL DISTRIBUTION WIDTH 15.6 % (11.5-14.0)
[2018-12-01] MEDS ORDERED: NORMAL SALINE 1000 ML 1,000 ML IV ONE (10:15)
[2018-12-01] MEDS: DOCUSATE SODIUM 100 MG CAPSULE PO SCH (10:36)
[2018-12-01] MEDS: ASPIRIN 81 MG TABLET, ENT COATED PO SCH (10:36)
[2018-12-01] MEDS: ENOXAPARIN SODIUM INJ 100 MG/1 ML DISP.SYRIN SUBCUT SCH ×2 (10:40→21:11)
[2018-12-01 10:59] LABS: VANCOMYCIN,TROUGH 22.5 ug/mL (5.0-20.0)
[2018-12-01] MEDS: VANCOMYCIN HCL 1,500 MG in DEXTROSE 5%-WATER 250 ML IV SCH (11:21)
[2018-12-01 11:43] LABS: APPEARANCE,URINE CLOUDY; BILIRUBIN,URINE NEGATIVE (NEGATIVE); GLUCOSE, URINE NEGATIVE (NEGATIVE); KETONES,URINE TRACE mg/dL (NEGATIVE); LEUKOCYTE ESTERASE,URINE MODERATE (NEGATIVE); NITRITE,URINE NEGATIVE (NEGATIVE); PROTEIN,URINE 100 mg/dL (NEGATIVE); URINE SPECIFIC GRAVITY 1.025; UROBILINOGEN,URINE NEGATIVE mg/dL (<2.0)
[2018-12-01 11:48] LABS: COLOR,URINE PINK
[2018-12-01] MEDS: FUROSEMIDE INJ/PF 40 MG/4 ML SDV IV SCH ×2 (12:22→23:30)
--- NOTE | 2018-12-01 12:23 | PDOC CONSULTATION ---
Consultation Consult Date: 12/01/18 Provider Consulted: DELANO ONOFRE Consult reason:: Hematology/Oncology consultation was requested for a mass on patient's jaw. History of Present Illness Admission Date/PCP: 11/28/18 20:31 JULI BYRD PA-C History of Present Illness: DANIELA GARCIA JR is a 63 year old male who follows with [facility]. According to his brother, Winston, and to the medical records, patient lost his insurance and was unable to continue his regular heart medications. Over the past month, he developed swelling, off and on in his legs. After some time, he presented to his PCP and was sent directly to the hospital. On admission, he was found to have A. fib with RVR, shortness of breath, bilateral lower extremity cellulitis. In the emergency department he is found to have the above with a BNP of 8400, pleural effusion, bilateral venous stasis with cellulitis an d a chronic fungating mass of his right parotid. Winston also states that he had been seeing both ENT and dentist for the parotid mass and believes that he had biopsies performed. He had been started on antibiotics and the lesion was improving. Over the past few days, patient's breathing has deteriorated, he was sent to the ED briefly, and his mental status is not much worse. Today, he is very restless and combative with CPAP machine and 2 point soft wrist restraints. He is unable to make eye contact or speak. He is able to push my hand away. Past Medical History Cardiac Medical History: Reports: Atrial Fibrillation, Congestive Heart Failure Pulmonary Medical History: Reports: Bronchitis, Chronic Obstructive Pulmonary Disease (COPD) EENT Medical History: Reports: Other - Right sided 2 x 3 cm fungating parotid tumor Neurological Medical History: Reports: None Denies: Seizures Endocrine Medical History: Reports: Diabetes Mellitus Type 2 Renal/ Medical History: Reports: None Malignancy Medical History: Reports: Other - Parotid tumor Musculoskeltal Medical History: Reports: None Skin Medical History: Reports: Other - Bilateral lower extremity venous stasis Psychiatric Medical History: Reports: Tobacco Dependency Traumatic Medical History: Reports: None Hematology: Reports: None, Other - Right sided 2 x 3 cm fungating parotid tumor Infectious Medical History: Reports: None Social History Information Source: Relative, [facility] Records Lives with: Family Smoking Status: Current Every Day Smoker Frequency of Alcohol Use: Heavy Hx Recreational Drug Use: No Drugs: None Hx Prescription Drug Abuse: No Past Social History Note: Lives with BrotherWinston. - Advance Directive Resuscitation Status: Full Code Family History Family History: COPD, Hypertension Parental Family History Reviewed: Yes - Both with DM and CAD. Children Family History Reviewed: NA Sibling(s) Family History Reviewed.: Yes Medication/Allergy Home Medications: No Home Medications 11/28/18 Allergies/Adverse Reactions: No Known Allergies Allergy (Verified 02/26/17 14:06) Review of Systems ROS unobtainable: Due to mental status Physical Exam Vital Signs: Temp Pulse Resp BP Pulse Ox 97.3 F 99 21 H 98/54 L 95 12/01/18 08:00 12/01/18 08:00 12/01/18 08:38 12/01/18 08:00 12/01/18 08:38 Intake & Output 11/30/18 12/01/18 12/02/18 06:59 06:59 06:59 Intake Total 788.2 3241.2 Output Total 1825 Balance 788.2 1416.2 Weight 97.2 kg 100.8 kg General appearance: PRESENT: obese, well-developed Exam: 63 year old male. Combative. Head exam: PRESENT: normocephalic Eye exam: PRESENT: other - would not open eyes for exam. Mouth exam: PRESENT: other - CPAP in place. Neck exam: PRESENT: other - Unable to fully exam due to CPAP Respiratory exam: ABSENT: crackles, wheezes Cardiovascular exam: PRESENT: irregular rhythm GI/Abdominal exam: PRESENT: soft. ABSENT: organolmegaly Gentrourinary exam: PRESENT: indwelling catheter, other - Bloody urine Extremities exam: PRESENT: +1 edema Musculoskeletal exam: PRESENT: other - Moves all 4 extremities. Neurological exam: PRESENT: other - Awake, but unable to interact with me at all. Focused psych exam: PRESENT: restlessness Skin exam: PRESENT: other - erythema over both legs. Consistent with cellulitis or acute allergic reaction. Results Laboratory Results: 12/01/18 05:40 11/30/18 04:24 11/30/18 11/30/18 12/01/18 12:46 16:34 05:40 WBC 7.0 RBC 5.18 Hgb 15.2 Hct 46.4 MCV 90 MCH 29.3 MCHC 32.7 RDW 15.6 H Plt Count 134 L Carbonic Acid 1.57 H HCO3/H2CO3 Ratio 16:1 ABG pH 7.32 L ABG pCO2 52.2 H ABG pO2 87.9 ABG HCO3 26.4 H ABG O2 Saturation 95.9 ABG Base Excess -0.7 FiO2 35% Urine Color YELLOW Urine Appearance CLOUDY Urine pH 5.0 Ur Specific [place] 1.017 Urine Protein NEGATIVE Urine Glucose (UA) NEGATIVE Urine Ketones NEGATIVE Urine Blood LARGE H Urine Nitrite NEGATIVE Ur Leukocyte Esterase SMALL H Urine WBC (Auto) 17 Urine RBC (Auto) 141 11/28/18 11/28/18 11/28/18 17:54 17:54 20:30 Creatine Kinase 650 H 642 H CK-MB (CK-2) Troponin I 0.016 NT-Pro-B Natriuret Pep 8440 H 11/28/18 11/29/18 11/29/18 20:30 02:24 02:24 Creatine Kinase 686 H CK-MB (CK-2) 4.61 H 6.62 H Troponin I 0.016 0.019 NT-Pro-B Natriuret Pep 11/29/18 11/29/18 10:04 10:04 Creatine Kinase 560 H CK-MB (CK-2) 6.43 H Troponin I 0.017 NT-Pro-B Natriuret Pep Impressions: Chest/Abdomen CTA 11/28/18 18:26 IMPRESSION: 1. Negative examination for pulmonary embolism. 2. Moderate right pleural effusion and associated atelectasis or consolidation. 3. Emphysema. 4. Coronary artery disease. 5. Ascites and anasarca in the included upper abdomen. Soft Tissue Neck CT 11/28/18 18:50 IMPRESSION: There is a large, exophytic mass which appears to arise from the parotid tail measuring 3.5 x 3.2 cm. There are additional small heterogeneously enhancing masses of the right parotid body measuring 1.7 and 1.3 cm. The primary differential consideration is Warthin's tumors. Chest X-Ray 11/30/18 00:00 IMPRESSION: RIGHT PLEURAL EFFUSION. INCREASING AIRSPACE DISEASE IN THE RIGHT LOWER LOBE MAY BE DUE TO ATELECTASIS ALTHOUGH PNEUMONIA CANNOT BE EXCLUDED. Status: Image reviewed by me Assessment & Plan - Diagnosis (1) Right parotid gland tumor Is this a current diagnosis for this admission?: Yes Plan: I am trying to obtain records from [facility] about this. Family believes that it has already been biopsied. I called and left a message with Berenice at [facility]. Until these records are obtained, I am not able to make any further recommendations. If not already biopsied, this should be performed. (2) Acute exacerbation of CHF (congestive heart failure) Qualifiers: Heart failure type: systolic Qualified Code(s): I50.23 - Acute on chronic systolic (congestive) heart failure Is this a current diagnosis for this admission?: Yes Plan: As per primary team. (3) Alcohol dependence Is this a current diagnosis for this admission?: Yes Plan: As per primary team. Watch for DTs. (4) Atrial fibrillation with RVR Is this a current diagnosis for this admission?: Yes Plan: On anticoagulation. (5) Bilateral cellulitis of lower leg Is this a current diagnosis for this admission?: Yes Plan: With bacteremia. MRSA. On Vancomycin. - Plan Summary Plan Summary: I will continue to try to obtain more information, as patient is unable to provide further history. Family reports that antibiotics had been given for the parotid mass and these were helping, so he may have acute infection in this area as well, seeding the bacteremia.
[2018-12-01] MEDS ORDERED: DEXTROSE 40% GEL 15 GM TUBE PO PRN (13:00)
[2018-12-01] MEDS ORDERED: DEXTROSE 50%-WATER SYRINGE 12.5 GM/25 ML DOSE IV PRN (13:00)
[2018-12-01] MEDS ORDERED: DEXTROSE 40% GEL 15 GM TUBE X 2 PO PRN (13:00)
[2018-12-01] MEDS ORDERED: GLUCAGON,HUMAN RECOMB 1 MG INJ IM PRN (13:00)
[2018-12-01] MEDS ORDERED: DEXTROSE 50%-WATER SYRINGE 25 GM/50 ML DOSE IV PRN (13:00)
[2018-12-01] MEDS: NICOTINE 14 MG/24 HR PATCH.TD24 TD SCH (14:31)
--- NOTE | 2018-12-01 14:52 | PDOC PROGRESS REPORT ---
Subjective Progress Note for:: 12/01/18 Subjective:: Patient downgraded last night from ICU to IMCU. When I see him this morning patient is has two-point soft restraints on his wrist. He is agitated and try to get out of bed. His blood culture grew MRSA. His echocardiogram does not show any vegetation. Been getting Zosyn and vancomycin. Reason For Visit: AFIB HEART FAILURE Physical Exam Vital Signs: Temp Pulse Resp BP Pulse Ox 97.3 F 95 22 H 107/65 97 12/01/18 08:00 12/01/18 12:00 12/01/18 12:28 12/01/18 12:00 12/01/18 12:00 Intake & Output 11/30/18 12/01/18 12/02/18 06:59 06:59 06:59 Intake Total 788.2 3241.2 Output Total 1825 300 Balance 788.2 1416.2 -300 Weight 97.2 kg 100.8 kg General appearance: PRESENT: mild distress Head exam: PRESENT: atraumatic Eye exam: PRESENT: conjunctiva pink Teeth exam: PRESENT: poor dentation Neck exam: ABSENT: carotid bruit, JVD, lymphadenopathy, thyromegaly Respiratory exam: PRESENT: decreased breath sounds Cardiovascular exam: PRESENT: irregular rhythm GI/Abdominal exam: PRESENT: normal bowel sounds, soft. ABSENT: distended, guarding, mass, organolmegaly, rebound, tenderness Results Laboratory Results: 12/01/18 05:40 11/30/18 04:24 11/30/18 12/01/18 12/01/18 16:34 05:40 09:28 WBC 7.0 RBC 5.18 Hgb 15.2 Hct 46.4 MCV 90 MCH 29.3 MCHC 32.7 RDW 15.6 H Plt Count 134 L Carbonic Acid 1.57 H HCO3/H2CO3 Ratio 16:1 ABG pH 7.32 L ABG pCO2 52.2 H ABG pO2 87.9 ABG HCO3 26.4 H ABG O2 Saturation 95.9 ABG Base Excess -0.7 FiO2 35% Urine Color PINK Urine Appearance CLOUDY Urine pH 5.0 Ur Specific [place] 1.025 Urine Protein 100 H Urine Glucose (UA) NEGATIVE Urine Ketones TRACE H Urine Blood LARGE H Urine Nitrite NEGATIVE Ur Leukocyte Esterase MODERATE H Urine WBC (Auto) >182 Urine RBC (Auto) >182 11/28/18 11/28/18 11/28/18 17:54 17:54 20:30 Creatine Kinase 650 H 642 H CK-MB (CK-2) Troponin I 0.016 NT-Pro-B Natriuret Pep 8440 H 11/28/18 11/29/18 11/29/18 20:30 02:24 02:24 Creatine Kinase 686 H CK-MB (CK-2) 4.61 H 6.62 H Troponin I 0.016 0.019 NT-Pro-B Natriuret Pep 11/29/18 11/29/18 10:04 10:04 Creatine Kinase 560 H CK-MB (CK-2) 6.43 H Troponin I 0.017 NT-Pro-B Natriuret Pep Impressions: Chest/Abdomen CTA 11/28/18 18:26 IMPRESSION: 1. Negative examination for pulmonary embolism. 2. Moderate right pleural effusion and associated atelectasis or consolidation. 3. Emphysema. 4. Coronary artery disease. 5. Ascites and anasarca in the included upper abdomen. Soft Tissue Neck CT 11/28/18 18:50 IMPRESSION: There is a large, exophytic mass which appears to arise from the parotid tail measuring 3.5 x 3.2 cm. There are additional small heterogeneously enhancing masses of the right parotid body measuring 1.7 and 1.3 cm. The primary differential consideration is Warthin's tumors. Chest X-Ray 11/30/18 00:00 IMPRESSION: RIGHT PLEURAL EFFUSION. INCREASING AIRSPACE DISEASE IN THE RIGHT LOWER LOBE MAY BE DUE TO ATELECTASIS ALTHOUGH PNEUMONIA CANNOT BE EXCLUDED. Assessment and Plan - Diagnosis (1) MRSA bacteremia Is this a current diagnosis for this admission?: Yes Plan: Patient has been on vancomycin. Dr. Bob schmitz has been consulted for her input. (2) Atrial fibrillation with RVR Is this a current diagnosis for this admission?: Yes Plan: Insert rates up and down. Since he is hypotensive I hold his Cardizem. (3) RLL PNA and pleural effusion Is this a current diagnosis for this admission?: Yes Plan: Continue current antibiotic (4) Acute on chronic systolic congestive heart failure, NYHA class 2 Is this a current diagnosis for this admission?: Yes Plan: Hold his Lasix due to hypotension. (5) Bilateral cellulitis of lower leg Is this a current diagnosis for this admission?: Yes Plan: Continue the above antibiotics. (6) Right parotid gland tumor Is this a current diagnosis for this admission?: Yes Plan: I will consult ENT. (7) COPD (chronic obstructive pulmonary disease) Qualifiers: Emphysema type: unspecified Is this a current diagnosis for this admission?: Yes Plan: Continue with bronchodilators (8) Type 2 diabetes mellitus Is this a current diagnosis for this admission?: Yes Plan: Continue sliding scale. (9) Alcohol dependence Is this a current diagnosis for this admission?: Yes Plan: Patient will be put on alcohol withdrawal protocol. (10) Tobacco dependence Is this a current diagnosis for this admission?: Yes Plan: We will prescribe nicotine patch and will encourage patient to quit smoking when he wakes up. (11) Obesity (BMI 30.0-34.9) Is this a current diagnosis for this admission?: Yes Plan: Patient will be encouraged to do lifestyle modification.
--- NOTE | 2018-12-01 15:38 | RADIOLOGY REPORT (SQ) ---
EXAM DESCRIPTION: CHEST SINGLE VIEW COMPLETED DATE/TIME: 12/01/2018 3:29 pm REASON FOR STUDY: Pneumonia and shortness of breath. COMPARISON: 11/30/2018. EXAM PARAMETERS: NUMBER OF VIEWS: One view. TECHNIQUE: Single frontal radiographic view of the chest acquired. RADIATION DOSE: NA LIMITATIONS: None. FINDINGS: LUNGS AND PLEURA: Right pleural effusion with right lower lobe airspace disease unchanged. Left lung clear. MEDIASTINUM AND HILAR STRUCTURES: No masses. Contour normal. HEART AND VASCULAR STRUCTURES: Heart upper limits of normal in size. Normal vasculature. BONES: No acute findings. HARDWARE: None in the chest. OTHER: No other significant finding. IMPRESSION: RIGHT PLEURAL EFFUSION WITH RIGHT LOWER LOBE AIRSPACE DISEASE UNCHANGED. TECHNICAL DOCUMENTATION: JOB ID: [id number] [employer]- All Rights Reserved Reading location - IP/workstation name: [email or web address]
[2018-12-01] MEDS ORDERED: INSULIN LISPRO 100 UNIT/ML 3 ML VIAL SUBCUT SCH (16:00)
--- NOTE | 2018-12-01 18:11 | Progress Note ---
Provider Note Provider Note: ID Consult Note Asked to review patient's chart. Pt not seen or examined. Pt is a 63 year old man with PMH including obesity, DM, PVD, COPD, CHF, AF and a R sided fungating partoid tumor. He presented on 11/28 to [facility] for AF with RVR, SOB, and BLE edema and erythema to his legs that had worsened over several weeks and had begun oozing. He was afebrile, tachycardic with irregularly irregular rhythm. Noted on exam were a 2x 3 cm fungating tumor at the angle of the jaw with malodorous exudate, accessory respiratory muscle use and crackles, prolonged expiratory phase, tachypnea, no murmur, pitting edema up to the abdominal wall, and tense edema of his legs with rubor and weeping from multiple foci. BNP was 8400. CT of the neck showed a large exophytic mass that appeared to arise from the parotid tail with small heterogenous masses also in the partoid body. CXR of the chest 2 view on 11/28 showed a moderate right pleural effusion with minimal diffuse b/l interstitial pulmonary opacity. The right pleural effusion with associated atelectasis or consolidation and mild centrilobular emphsema were seen on CTA of the chest but no PE. TTE on 11/29 was technically limited with suboptimal images - showed LVEF 25%, no MV vegetation or AoV vegetation, mild MR, no AR. Empirically he was on Rocephin from 11/28-11/29. On 11/30 he had increasing respiratory acidosis and labored breathing with wheezing, prompting repeat CXR that was read as showing increasing airspace disease in the RLL, which "may be due to atelectasis although pneumonia cannot be excluded." Vancomycin and Zosyn were started empirically and continued from 11/30 to present. Microbiology - No sputum. Blood cultures drawn on admission grew MRSA and also GPCs in chains (preliminary report) from one set. Blood cultures from 11/29 showed no growth x 48h. Impression/Recommendations Blood cultures with GPCs in chains and MRSA - Pt has MRSA isolated from one blood culture set, in conjunction with another Gram positive coccus (Strep or Enterococcus) yet to be identified. - Why this is a polymicrobial bacteremia is unclear. It is unusual for that to be the case outside of specific settings (e.g. bacteremia secondary to GI source or infected IV line), but vancomycin should have activity against both Gram positives. Although the possibility of blood culture contamination exists, he has multiple areas of skin breakdown that could have served as a portal of entry, MRSA is a virulent organism, and it is best regarded as a pathogen and never a contaminant when isolated in blood cultures. - He already has negative blood cultures from 11/29 prior to effective anti-MRSA treatment being started. He has been afebrile. TTE was suboptimal in quality but did not show vegetation. Source of the bacteremia is unclear. - If he has no hardware (e.g. prosthetic joints) and no other metastatic foci of infection (e.g. swollen erythematous joint to suggest septic arthritis or spondylodiscitis indicated by point tenderness on palpation/percussion of bony spine leading to MRI that shows compatible changes), then plan for IV vancomycin for 2 weeks; end date 12/13. Abnormal CXR - Pulmonary edema and pleural effusion with compressive atelectasis vs pneumonia. Favor the former if the infiltrate is responsive to diuretics and/or thoracentesis. Lung exam previously noted crackles and later wheezes "cardiac asthma" and interstitial pattern on CXR is consistent with pulmonary edema, as is the patient's presentation with other evidence of total body fuild overload. - However, if the patient's treating clinician feels that the likelihood of pneumonia is high, what I would caution is that there is an increased risk of nephrotoxicity that has been associated with the combination of vancomycin and Zosyn, and if pneumonia is truly suspected to be most likely what's going on, consider instead Rocephin (if no history of recent IV antibiotics or hospitalization to make Pseudomonas more likely) or cefepime (if such is present). Bob Jerome MD [facility] Infectious Diseases pager [phone]
[2018-12-01] MEDS: INSULIN LISPRO 100 UNIT/ML 3 ML VIAL SUBCUT SCH (20:01)
[2018-12-01] MEDS: DILTIAZEM HCL 60 MG TABLET PO SCH (21:10)
[2018-12-01] MEDS: DILTIAZEM HCL/D5W 125 MG/125 ML RTUINJ IV PRN (21:30)
[2018-12-01] MEDS: THIAMINE HCL 100 MG, FOLIC ACID 1 MG in NORMAL SALINE 250 ML IV SCH (22:31)
[2018-12-01] MEDS: VANCOMYCIN HCL 1,000 MG in DEXTROSE 5%-WATER 250 ML IV SCH (23:09)
[2018-12-02] MEDS: INSULIN LISPRO 100 UNIT/ML 3 ML VIAL SUBCUT SCH ×4 (00:12→17:51)
[2018-12-02] MEDS: PIPERACILLIN SODIUM/TAZOBACTAM 4.5 GM in NORMAL SALINE 100 ML IV SCH (03:53)
[2018-12-02 04:46] LABS: ABSOLUTE LYMPHOCYTES (AUTO) 0.3 10^3/uL (0.5-4.7); ABSOLUTE MONOCYTES (AUTO) 0.8 10^3/uL (0.1-1.4); ABSOLUTE NEUT (AUTO) 4.6 10^3/uL (1.7-8.2); BASOPHILS % (AUTO) 0.7 % (0-2); EOSINOPHILS % (AUTO) 0.7 % (0-6); HEMATOCRIT 47.9 % (37.9-51.0); HEMOGLOBIN 15.6 g/dL (13.5-17.0); LYMPHOCYTES % (AUTO) 5.1 % (13-45); MEAN CORPUSCULAR HEMOGLOBIN 29.2 pg (27.0-33.4); MEAN CORPUSCULAR HGB CONC 32.6 g/dL (32.0-36.0); MEAN CORPUSCULAR VOLUME 90 fl (80-97); MONOCYTES % (AUTO) 13.4 % (3-13); PLATELET COUNT 129 10^3/uL (150-450); RED BLOOD COUNT 5.35 10^6/uL (4.35-5.55); RED CELL DISTRIBUTION WIDTH 15.7 % (11.5-14.0); SEGMENTED NEUTROPHILS % (AUTO) 80.1 % (42-78); TOTAL CELLS COUNTED % (AUTO) 100 %; WHITE BLOOD COUNT 5.7 10^3/uL (4.0-10.5)
[2018-12-02] MEDS: LORAZEPAM INJ 2 MG/1 ML VIAL IV PRN ×6 (04:57→23:04)
[2018-12-02 05:07] LABS: ANION GAP 7 (5-19); BLOOD UREA NITROGEN 21 mg/dL (7-20); CALCIUM 8.8 mg/dL (8.4-10.2); CARBON DIOXIDE 29 mmol/L (22-30); CHLORIDE 105 mmol/L (98-107); GLUCOSE 88 mg/dL (75-110); SODIUM 141.3 mmol/L (137-145)
[2018-12-02] MEDS: NORMAL SALINE 1000 ML 1,000 ML IV PRN ×2 (09:08→17:58)
--- NOTE | 2018-12-02 09:19 | PDOC CONSULTATION ---
Consultation Consult Date: 12/02/18 Provider Consulted: STEPHY HAYWARD Consult reason:: right neck mass History of Present Illness Admission Date/PCP: 11/28/18 20:31 JULI BYRD PA-C History of Present Illness: DANIELA GARCIA JR is a 63 year old male with a past medical history of long-term noncompliance of systolic and diastolic heart failure, atrial fibrillation, diabetes, peripheral vascular disease, COPD with tobacco dependence and large right sided fungating parotid tumor. Patient presented to initiate primary care but was referred to the emergency department for A. fib with RVR, shortness of breath, bilateral lower extremity cellulitis. Patient complains of several weeks of worsening lower extremity edema with oozing and worsening erythema. pt was admitted to medicine service for above and resp destress currently on bipap difficult to obtain hx from has known fungating parotid tumor surgery asked to eval. Past Medical History Cardiac Medical History: Reports: Atrial Fibrillation, Congestive Heart Failure Pulmonary Medical History: Reports: Bronchitis, Chronic Obstructive Pulmonary Disease (COPD) EENT Medical History: Reports: Other - Right sided 2 x 3 cm fungating parotid tumor Neurological Medical History: Reports: None Denies: Seizures Endocrine Medical History: Reports: Diabetes Mellitus Type 2 Renal/ Medical History: Reports: None Malignancy Medical History: Reports: Other - Parotid tumor Musculoskeltal Medical History: Reports: None Skin Medical History: Reports: Other - Bilateral lower extremity venous stasis Psychiatric Medical History: Reports: Tobacco Dependency Traumatic Medical History: Reports: None Hematology: Reports: None, Other - Right sided 2 x 3 cm fungating parotid tumor Infectious Medical History: Reports: None Past Surgical History Past Surgical History: Denies: None, Appendectomy, Cardiac Catheterization, Carotid Endarterectomy, Cholecystectomy, Colostomy, Coronary Artery Bypass Graft, Coronary Stent, Gastric Bypass Surgery, Herniorrhaphy, Hip Replacement, Ileostomy, Internal Defibrillator, Knee Replacement, Orthopedic Surgery, Pacemaker, Renal Transplant, Splenectomy, Thyroidectomy, Tonsillectomy, Valve Replacement, Vascular Surgery, Other Social History Lives with: Family Smoking Status: Current Every Day Smoker Frequency of Alcohol Use: Heavy Hx Recreational Drug Use: No Drugs: None Hx Prescription Drug Abuse: No - Advance Directive Resuscitation Status: Full Code Family History Family History: COPD, Hypertension Parental Family History Reviewed: No Children Family History Reviewed: NA Sibling(s) Family History Reviewed.: NA Medication/Allergy Home Medications: No Home Medications 11/28/18 Allergies/Adverse Reactions: No Known Allergies Allergy (Verified 02/26/17 14:06) Review of Systems ROS unobtainable: Due to mental status Physical Exam Vital Signs: Temp Pulse Resp BP Pulse Ox 98.2 F 99 26 H 106/39 L 92 12/02/18 04:28 12/02/18 07:00 12/02/18 04:28 12/02/18 07:00 12/02/18 04:28 Intake & Output 12/01/18 12/02/18 12/03/18 06:59 06:59 06:59 Intake Total 3241.2 1830.2 Output Total 1825 2975 Balance 1416.2 -1144.8 Weight 100.8 kg 101.4 kg General appearance: PRESENT: morbidly obese Head exam: PRESENT: atraumatic Eye exam: PRESENT: PERRLA Ear exam: PRESENT: normal external ear exam Mouth exam: PRESENT: dry mucosa Teeth exam: PRESENT: poor dentation Neck exam: PRESENT: other - bilateral swelling over parotids exophyitic fungating lesion over right parotid tail non bleeding. Respiratory exam: PRESENT: accessory muscle use, rhonchi Cardiovascular exam: PRESENT: RRR Pulses: PRESENT: normal radial pulses, normal femoral pulses GI/Abdominal exam: PRESENT: soft Rectal exam: PRESENT: deferred Extremities exam: PRESENT: full ROM Musculoskeletal exam: PRESENT: full ROM Neurological exam: PRESENT: altered Results Laboratory Results: 12/02/18 03:51 12/02/18 03:51 12/01/18 12/02/18 12/02/18 09:28 03:51 03:51 WBC 5.7 RBC 5.35 Hgb 15.6 Hct 47.9 MCV 90 MCH 29.2 MCHC 32.6 RDW 15.7 H Plt Count 129 L Seg Neutrophils % 80.1 H Lymphocytes % 5.1 L Monocytes % 13.4 H Eosinophils % 0.7 Basophils % 0.7 Absolute Neutrophils 4.6 Absolute Lymphocytes 0.3 L Absolute Monocytes 0.8 Absolute Eosinophils 0.0 Absolute Basophils 0.0 Sodium 141.3 Potassium 4.0 Chloride 105 Carbon Dioxide 29 Anion Gap 7 BUN 21 H Creatinine 0.81 Est GFR ( Amer) > 60 Est GFR (Non-Af Amer) > 60 Glucose 88 Calcium 8.8 Urine Color PINK Urine Appearance CLOUDY Urine pH 5.0 Ur Specific [place] 1.025 Urine Protein 100 H Urine Glucose (UA) NEGATIVE Urine Ketones TRACE H Urine Blood LARGE H Urine Nitrite NEGATIVE Ur Leukocyte Esterase MODERATE H Urine WBC (Auto) >182 Urine RBC (Auto) >182 11/28/18 11/28/18 11/28/18 17:54 17:54 20:30 Creatine Kinase 650 H 642 H CK-MB (CK-2) Troponin I 0.016 NT-Pro-B Natriuret Pep 8440 H 11/28/18 11/29/18 11/29/18 20:30 02:24 02:24 Creatine Kinase 686 H CK-MB (CK-2) 4.61 H 6.62 H Troponin I 0.016 0.019 NT-Pro-B Natriuret Pep 11/29/18 11/29/18 10:04 10:04 Creatine Kinase 560 H CK-MB (CK-2) 6.43 H Troponin I 0.017 NT-Pro-B Natriuret Pep Impressions: Chest/Abdomen CTA 11/28/18 18:26 IMPRESSION: 1. Negative examination for pulmonary embolism. 2. Moderate right pleural effusion and associated atelectasis or consolidation. 3. Emphysema. 4. Coronary artery disease. 5. Ascites and anasarca in the included upper abdomen. Soft Tissue Neck CT 11/28/18 18:50 IMPRESSION: There is a large, exophytic mass which appears to arise from the parotid tail measuring 3.5 x 3.2 cm. There are additional small heterogeneously enhancing masses of the right parotid body measuring 1.7 and 1.3 cm. The primary differential consideration is Warthin's tumors. Chest X-Ray 12/01/18 00:00 IMPRESSION: RIGHT PLEURAL EFFUSION WITH RIGHT LOWER LOBE AIRSPACE DISEASE UNCHANGED. Assessment & Plan - Diagnosis (1) Right parotid gland tumor Is this a current diagnosis for this admission?: Yes - Plan Summary Plan Summary: pt with bilateral parotid swelling at least seen since 2017 and documented and seen here by end intitially rx as parotitis and rx in 2017 with abx I do not see a f/u note in inpatient records pt unable to answer questions currently with fungating mass over right parotid tail appears to have been longstanding does not appear to be related to current cause for admission but should be further worked up and evaluated by ent.
[2018-12-02] MEDS ORDERED: CEFEPIME 2 GM/D5W RTU 2 GM/50 ML RTUPB IV SCH (10:00)
[2018-12-02] MEDS ORDERED: CEFEPIME HCL 2 GM in DEXTROSE 5%-WATER 50 ML IV SCH (10:00)
[2018-12-02] MEDS: ASPIRIN 81 MG TABLET, ENT COATED PO SCH (10:17)
[2018-12-02] MEDS: APIXABAN 5 MG TABLET PO SCH ×2 (10:17→18:20)
[2018-12-02] MEDS: DOCUSATE SODIUM 100 MG CAPSULE PO SCH (10:17)
[2018-12-02] MEDS: VANCOMYCIN HCL 1,000 MG in DEXTROSE 5%-WATER 250 ML IV SCH ×2 (10:21→22:56)
[2018-12-02] MEDS: NICOTINE 14 MG/24 HR PATCH.TD24 TD SCH (10:22)
[2018-12-02] MEDS: FUROSEMIDE INJ/PF 40 MG/4 ML SDV IV SCH ×2 (11:07→23:03)
--- NOTE | 2018-12-02 11:56 | PDOC PROGRESS REPORT ---
Subjective Progress Note for:: 12/02/18 Subjective:: Patient seen lying in bed with full BiPAP mask. He responds to his name by opening his eyes. His CBC shows platelet count of 15.7 so I discontinued his therapeutic Lovenox. He is not started on different anticoagulant because of bleeding tendency evidence it by hematuria and petechial rash on his skin. His hyperkalemia resolved. His blood culture is positive for MRSA and Enterococcus faecalis both organisms are sensitive to vancomycin so I discontinued Zosyn. His blood pressure slightly better and his heart rates relatively controlled. This morning patient evaluated by Dr. Edwards for his right fungating parotid mass. He recommended further evaluation by ENT. Reason For Visit: AFIB HEART FAILURE Physical Exam Vital Signs: Temp Pulse Resp BP Pulse Ox 98.2 F 91 24 H 124/87 H 96 12/02/18 04:28 12/02/18 11:00 12/02/18 09:39 12/02/18 11:00 12/02/18 09:39 Intake & Output 12/01/18 12/02/18 12/03/18 06:59 06:59 06:59 Intake Total 3241.2 1830.2 1000 Output Total 1825 2975 Balance 1416.2 -1144.8 1000 Weight 100.8 kg 101.4 kg General appearance: PRESENT: disheveled, mild distress Head exam: PRESENT: atraumatic Eye exam: PRESENT: conjunctiva pink Neck exam: ABSENT: carotid bruit - Right parotid mass, JVD, lymphadenopathy, thyromegaly Respiratory exam: PRESENT: crackles, decreased breath sounds Cardiovascular exam: PRESENT: irregular rhythm, tachycardia Results Laboratory Results: 12/02/18 03:51 12/02/18 03:51 12/01/18 12/02/18 12/02/18 09:28 03:51 03:51 WBC 5.7 RBC 5.35 Hgb 15.6 Hct 47.9 MCV 90 MCH 29.2 MCHC 32.6 RDW 15.7 H Plt Count 129 L Seg Neutrophils % 80.1 H Lymphocytes % 5.1 L Monocytes % 13.4 H Eosinophils % 0.7 Basophils % 0.7 Absolute Neutrophils 4.6 Absolute Lymphocytes 0.3 L Absolute Monocytes 0.8 Absolute Eosinophils 0.0 Absolute Basophils 0.0 Sodium 141.3 Potassium 4.0 Chloride 105 Carbon Dioxide 29 Anion Gap 7 BUN 21 H Creatinine 0.81 Est GFR ( Amer) > 60 Est GFR (Non-Af Amer) > 60 Glucose 88 Calcium 8.8 Urine Color PINK Urine Appearance CLOUDY Urine pH 5.0 Ur Specific [place] 1.025 Urine Protein 100 H Urine Glucose (UA) NEGATIVE Urine Ketones TRACE H Urine Blood LARGE H Urine Nitrite NEGATIVE Ur Leukocyte Esterase MODERATE H Urine WBC (Auto) >182 Urine RBC (Auto) >182 11/28/18 17:54 Blood Blood Culture - Final Mrsa (Meth Resis Staph Aureus) Enterococcus Faecalis(Group D) 11/28/18 11/28/18 11/28/18 17:54 17:54 20:30 Creatine Kinase 650 H 642 H CK-MB (CK-2) Troponin I 0.016 NT-Pro-B Natriuret Pep 8440 H 11/28/18 11/29/18 11/29/18 20:30 02:24 02:24 Creatine Kinase 686 H CK-MB (CK-2) 4.61 H 6.62 H Troponin I 0.016 0.019 NT-Pro-B Natriuret Pep 11/29/18 11/29/18 10:04 10:04 Creatine Kinase 560 H CK-MB (CK-2) 6.43 H Troponin I 0.017 NT-Pro-B Natriuret Pep Impressions: Chest/Abdomen CTA 11/28/18 18:26 IMPRESSION: 1. Negative examination for pulmonary embolism. 2. Moderate right pleural effusion and associated atelectasis or consolidation. 3. Emphysema. 4. Coronary artery disease. 5. Ascites and anasarca in the included upper abdomen. Soft Tissue Neck CT 11/28/18 18:50 IMPRESSION: There is a large, exophytic mass which appears to arise from the parotid tail measuring 3.5 x 3.2 cm. There are additional small heterogeneously enhancing masses of the right parotid body measuring 1.7 and 1.3 cm. The primary differential consideration is Warthin's tumors. Chest X-Ray 12/01/18 00:00 IMPRESSION: RIGHT PLEURAL EFFUSION WITH RIGHT LOWER LOBE AIRSPACE DISEASE UNCHANGED. Assessment and Plan - Diagnosis (1) Severe sepsis Is this a current diagnosis for this admission?: Yes Plan: Evidenced by hypotension and tachycardia. Blood culture is positive for MRSA and Enterococcus faecalis and both organisms are sensitive to vancomycin. (2) MRSA bacteremia Is this a current diagnosis for this admission?: Yes Plan: Enterococcus bacteremia as well. We will continue vancomycin for the next 2 weeks (3) Atrial fibrillation with RVR Is this a current diagnosis for this admission?: Yes Plan: Rate relatively controlled. (4) RLL PNA and pleural effusion Is this a current diagnosis for this admission?: Yes Plan: Continue current antibiotic (5) Acute on chronic systolic congestive heart failure, NYHA class 2 Is this a current diagnosis for this admission?: Yes Plan: Hold his Lasix due to hypotension. (6) Bilateral cellulitis of lower leg Is this a current diagnosis for this admission?: Yes Plan: Continue the above antibiotics. (7) Right parotid gland tumor Is this a current diagnosis for this admission?: Yes Plan: I will consult ENT. (8) COPD (chronic obstructive pulmonary disease) Qualifiers: Emphysema type: unspecified Is this a current diagnosis for this admission?: Yes Plan: Continue with bronchodilators (9) Type 2 diabetes mellitus Is this a current diagnosis for this admission?: Yes Plan: Continue sliding scale. (10) Alcohol dependence Is this a current diagnosis for this admission?: Yes Plan: Patient will be put on alcohol withdrawal protocol. (11) Tobacco dependence Is this a current diagnosis for this admission?: Yes Plan: We will prescribe nicotine patch and will encourage patient to quit smoking when he wakes up. (12) Obesity (BMI 30.0-34.9) Is this a current diagnosis for this admission?: Yes Plan: Patient will be encouraged to do lifestyle modification.
--- NOTE | 2018-12-02 13:48 | PDOC PROGRESS REPORT ---
Subjective Progress Note for:: 12/02/18 Subjective:: Patient remains combative on BiPAP and is not able to communicate. Patient's brother was at bedside. Reason For Visit: AFIB HEART FAILURE Physical Exam Vital Signs: Temp Pulse Resp BP Pulse Ox 97.6 F 101 H 20 118/97 H 98 12/02/18 12:06 12/02/18 12:06 12/02/18 12:06 12/02/18 12:06 12/02/18 12:06 Intake & Output 12/01/18 12/02/18 12/03/18 06:59 06:59 06:59 Intake Total 3241.2 1830.2 1000 Output Total 1825 2975 900 Balance 1416.2 -1144.8 100 Weight 100.8 kg 101.4 kg General appearance: ABSENT: cooperative Exam: Overweight. Mouth exam: PRESENT: other - BiPAP in place Neck exam: PRESENT: other - Bipap in place Extremities exam: PRESENT: other - No change from previou. Erythema and edema in ankles. Musculoskeletal exam: PRESENT: full ROM Neurological exam: ABSENT: alert, oriented to person, oriented to place, oriented to time, oriented to situation Psychiatric exam: PRESENT: anxious Focused psych exam: PRESENT: restlessness Skin exam: PRESENT: cyanosis Results Laboratory Results: 12/02/18 03:51 12/02/18 03:51 12/02/18 12/02/18 03:51 03:51 WBC 5.7 RBC 5.35 Hgb 15.6 Hct 47.9 MCV 90 MCH 29.2 MCHC 32.6 RDW 15.7 H Plt Count 129 L Seg Neutrophils % 80.1 H Lymphocytes % 5.1 L Monocytes % 13.4 H Eosinophils % 0.7 Basophils % 0.7 Absolute Neutrophils 4.6 Absolute Lymphocytes 0.3 L Absolute Monocytes 0.8 Absolute Eosinophils 0.0 Absolute Basophils 0.0 Sodium 141.3 Potassium 4.0 Chloride 105 Carbon Dioxide 29 Anion Gap 7 BUN 21 H Creatinine 0.81 Est GFR ( Amer) > 60 Est GFR (Non-Af Amer) > 60 Glucose 88 Calcium 8.8 11/28/18 17:54 Blood Blood Culture - Final Mrsa (Meth Resis Staph Aureus) Enterococcus Faecalis(Group D) 11/28/18 11/28/18 11/28/18 17:54 17:54 20:30 Creatine Kinase 650 H 642 H CK-MB (CK-2) Troponin I 0.016 NT-Pro-B Natriuret Pep 8440 H 11/28/18 11/29/18 11/29/18 20:30 02:24 02:24 Creatine Kinase 686 H CK-MB (CK-2) 4.61 H 6.62 H Troponin I 0.016 0.019 NT-Pro-B Natriuret Pep 11/29/18 11/29/18 10:04 10:04 Creatine Kinase 560 H CK-MB (CK-2) 6.43 H Troponin I 0.017 NT-Pro-B Natriuret Pep Impressions: Chest/Abdomen CTA 11/28/18 18:26 IMPRESSION: 1. Negative examination for pulmonary embolism. 2. Moderate right pleural effusion and associated atelectasis or consolidation. 3. Emphysema. 4. Coronary artery disease. 5. Ascites and anasarca in the included upper abdomen. Soft Tissue Neck CT 11/28/18 18:50 IMPRESSION: There is a large, exophytic mass which appears to arise from the parotid tail measuring 3.5 x 3.2 cm. There are additional small heterogeneously enhancing masses of the right parotid body measuring 1.7 and 1.3 cm. The primary differential consideration is Warthin's tumors. Chest X-Ray 12/01/18 00:00 IMPRESSION: RIGHT PLEURAL EFFUSION WITH RIGHT LOWER LOBE AIRSPACE DISEASE UNCHANGED. Assessment & Plan - Diagnosis (1) Right parotid gland tumor Is this a current diagnosis for this admission?: Yes Plan: Surgery was consulted. ENT to see patient. In the past, it was thought that this was only infection. However, it has been chronic for 2 years. (2) Acute exacerbation of CHF (congestive heart failure) Qualifiers: Heart failure type: systolic Qualified Code(s): I50.23 - Acute on chronic systolic (congestive) heart failure Is this a current diagnosis for this admission?: Yes (3) Alcohol dependence Is this a current diagnosis for this admission?: Yes (4) Atrial fibrillation with RVR Is this a current diagnosis for this admission?: Yes (5) Bilateral cellulitis of lower leg Is this a current diagnosis for this admission?: Yes - Plan Summary Plan Summary: I will follow from a distance. Please call me with any concerns or questions.
[2018-12-02] MEDS: DILTIAZEM HCL/D5W 125 MG/125 ML RTUINJ IV PRN (18:09)
[2018-12-02] MEDS: THIAMINE HCL 100 MG, FOLIC ACID 1 MG in NORMAL SALINE 250 ML IV SCH (23:10)
[2018-12-03 04:26] LABS: ABSOLUTE EOSINOPHILS # (AUTO) 0.1 10^3/uL (0.0-0.6); ABSOLUTE LYMPHOCYTES (AUTO) 0.3 10^3/uL (0.5-4.7); ABSOLUTE MONOCYTES (AUTO) 0.9 10^3/uL (0.1-1.4); ABSOLUTE NEUT (AUTO) 4.2 10^3/uL (1.7-8.2); BASOPHILS % (AUTO) 0.6 % (0-2); EOSINOPHILS % (AUTO) 1.5 % (0-6); HEMATOCRIT 48.4 % (37.9-51.0); HEMOGLOBIN 15.9 g/dL (13.5-17.0); LYMPHOCYTES % (AUTO) 5.3 % (13-45); MEAN CORPUSCULAR HEMOGLOBIN 29.2 pg (27.0-33.4); MEAN CORPUSCULAR HGB CONC 32.8 g/dL (32.0-36.0); MEAN CORPUSCULAR VOLUME 89 fl (80-97); PLATELET COUNT 129 10^3/uL (150-450); RED BLOOD COUNT 5.44 10^6/uL (4.35-5.55); RED CELL DISTRIBUTION WIDTH 15.3 % (11.5-14.0); SEGMENTED NEUTROPHILS % (AUTO) 76.6 % (42-78); TOTAL CELLS COUNTED % (AUTO) 100 %; WHITE BLOOD COUNT 5.5 10^3/uL (4.0-10.5)
[2018-12-03] MEDS: INSULIN LISPRO 100 UNIT/ML 3 ML VIAL SUBCUT SCH ×4 (04:47→17:57)
[2018-12-03 04:48] LABS: ANION GAP 10 (5-19); BLOOD UREA NITROGEN 14 mg/dL (7-20); CALCIUM 8.9 mg/dL (8.4-10.2); CARBON DIOXIDE 33 mmol/L (22-30); CHLORIDE 100 mmol/L (98-107); GLUCOSE 84 mg/dL (75-110); POTASSIUM 3.7 mmol/L (3.6-5.0); SODIUM 143.1 mmol/L (137-145)
[2018-12-03] MEDS: NORMAL SALINE 1000 ML 1,000 ML IV PRN ×2 (06:15→14:43)
[2018-12-03 08:07] LABS: ARTERIAL BLOOD BASE EXCESS 2.3 mmol/L; ARTERIAL BLOOD H2CO3 1.72 mmol/L (1.05-1.35); ARTERIAL BLOOD HCO3 29.8 mmol/L (20-24); ARTERIAL BLOOD O2 SATURATION 96.1 % (94-98); ARTERIAL BLOOD PCO2 57.1 mmHg (35-45); ARTERIAL BLOOD PH 7.34 (7.35-7.45); ARTERIAL BLOOD PO2 88.7 mmHg (80-100); ARTERIAL BLOOD TOTAL CO2 31.5 mmol/L (23-27)
[2018-12-03 08:09] LABS: ARTERIAL BLOOD FIO2 50%
[2018-12-03] MEDS ORDERED: PHARMACY COMMUNICATION ORDER MC NR (08:30)
[2018-12-03] MEDS ORDERED: LEVALBUTEROL HCL NEB 1.25 MG/3 ML AMPUL NEB PRN (08:40)
[2018-12-03] MEDS: NICOTINE 14 MG/24 HR PATCH.TD24 TD SCH (10:35)
[2018-12-03] MEDS: VANCOMYCIN HCL 1,000 MG in DEXTROSE 5%-WATER 250 ML IV SCH ×2 (10:36→22:10)
[2018-12-03 11:05] LABS: VANCOMYCIN,TROUGH 18.5 ug/mL (5.0-20.0)
[2018-12-03] MEDS: DOCUSATE SODIUM 100 MG CAPSULE PO SCH (11:48)
[2018-12-03] MEDS: FUROSEMIDE INJ/PF 20 MG/2 ML SDV IV SCH ×2 (11:48→22:08)
[2018-12-03] MEDS: ASPIRIN 81 MG TABLET, ENT COATED PO SCH (11:48)
--- NOTE | 2018-12-03 11:48 | RADIOLOGY REPORT (SQ) ---
EXAM DESCRIPTION: KUB/ABDOMEN (SINGLE VIEW) COMPLETED DATE/TIME: 12/03/2018 9:19 am REASON FOR STUDY: Check Placement of NG Tube COMPARISON: None. NUMBER OF VIEWS: One view. TECHNIQUE: Supine radiographic image of the upper abdomen acquired. LIMITATIONS: None. FINDINGS: BOWEL GAS PATTERN: Normal bowel gas pattern. No dilated loops. CALCIFICATIONS: No suspicious calcifications. SOFT TISSUES: No gross mass or suggestion of organomegaly. HARDWARE: None. BONES: No bone lesions or fracture. OTHER: Nasogastric tube tip overlying stomach. IMPRESSION: Nasogastric tube in the stomach. Reading location - IP/workstation name: [email or web address]
[2018-12-03] MEDS: APIXABAN 5 MG TABLET PO SCH (11:49)
--- NOTE | 2018-12-03 12:01 | PDOC PROGRESS REPORT ---
Subjective Progress Note for:: 12/03/18 Subjective:: Patient still soft restrained at his wrist. His mitten has removed. Patient is relatively better than yesterday. Responds appropriately to his name. He has 0.5 x 0.5 cm hemorrhagic bullous lesion on his right hand dorsally. His catheter still drains blood-tinged urine. Because of this hemorrhagic tendencies anticoagulant is not started for his A. fib. He has been treated with vancomycin for MRSA and enterococcal bacteremia. Reason For Visit: AFIB HEART FAILURE Physical Exam Vital Signs: Temp Pulse Resp BP Pulse Ox 97.6 F 92 17 106/62 98 12/03/18 11:42 12/03/18 11:42 12/03/18 11:42 12/03/18 11:42 12/03/18 11:42 Intake & Output 12/02/18 12/03/18 12/04/18 06:59 06:59 06:59 Intake Total 1830.2 3793.2 Output Total 2975 4900 Balance -1144.8 -1106.8 Weight 101.4 kg 99.7 kg Results Laboratory Results: 12/03/18 03:57 12/03/18 10:17 12/03/18 12/03/18 12/03/18 03:57 03:57 07:56 WBC 5.5 RBC 5.44 Hgb 15.9 Hct 48.4 MCV 89 MCH 29.2 MCHC 32.8 RDW 15.3 H Plt Count 129 L Seg Neutrophils % 76.6 Lymphocytes % 5.3 L Monocytes % 16.0 H Eosinophils % 1.5 Basophils % 0.6 Absolute Neutrophils 4.2 Absolute Lymphocytes 0.3 L Absolute Monocytes 0.9 Absolute Eosinophils 0.1 Absolute Basophils 0.0 Carbonic Acid 1.72 H HCO3/H2CO3 Ratio 17:1 ABG pH 7.34 L ABG pCO2 57.1 H ABG pO2 88.7 ABG HCO3 29.8 H ABG O2 Saturation 96.1 ABG Base Excess 2.3 FiO2 50% Sodium 143.1 Potassium 3.7 Chloride 100 Carbon Dioxide 33 H Anion Gap 10 BUN 14 Creatinine 0.65 Est GFR ( Amer) > 60 Est GFR (Non-Af Amer) > 60 Glucose 84 Calcium 8.9 12/03/18 10:17 WBC RBC Hgb Hct MCV MCH MCHC RDW Plt Count Seg Neutrophils % Lymphocytes % Monocytes % Eosinophils % Basophils % Absolute Neutrophils Absolute Lymphocytes Absolute Monocytes Absolute Eosinophils Absolute Basophils Carbonic Acid HCO3/H2CO3 Ratio ABG pH ABG pCO2 ABG pO2 ABG HCO3 ABG O2 Saturation ABG Base Excess FiO2 Sodium Potassium Chloride Carbon Dioxide Anion Gap BUN Creatinine 0.53 Est GFR ( Amer) > 60 Est GFR (Non-Af Amer) > 60 Glucose Calcium 11/28/18 17:54 Blood Blood Culture - Final Mrsa (Meth Resis Staph Aureus) Enterococcus Faecalis(Group D) 11/28/18 11/28/18 11/28/18 17:54 17:54 20:30 Creatine Kinase 650 H 642 H CK-MB (CK-2) Troponin I 0.016 NT-Pro-B Natriuret Pep 8440 H 11/28/18 11/29/18 11/29/18 20:30 02:24 02:24 Creatine Kinase 686 H CK-MB (CK-2) 4.61 H 6.62 H Troponin I 0.016 0.019 NT-Pro-B Natriuret Pep 11/29/18 11/29/18 10:04 10:04 Creatine Kinase 560 H CK-MB (CK-2) 6.43 H Troponin I 0.017 NT-Pro-B Natriuret Pep Impressions: Chest/Abdomen CTA 11/28/18 18:26 IMPRESSION: 1. Negative examination for pulmonary embolism. 2. Moderate right pleural effusion and associated atelectasis or consolidation. 3. Emphysema. 4. Coronary artery disease. 5. Ascites and anasarca in the included upper abdomen. Soft Tissue Neck CT 11/28/18 18:50 IMPRESSION: There is a large, exophytic mass which appears to arise from the parotid tail measuring 3.5 x 3.2 cm. There are additional small heterogeneously enhancing masses of the right parotid body measuring 1.7 and 1.3 cm. The primary differential consideration is Warthin's tumors. Chest X-Ray 12/01/18 00:00 IMPRESSION: RIGHT PLEURAL EFFUSION WITH RIGHT LOWER LOBE AIRSPACE DISEASE UNCHANGED. KUB X-Ray 12/03/18 08:27 IMPRESSION: Nasogastric tube in the stomach. Assessment and Plan - Diagnosis (1) Enterococcal bacteremia Is this a current diagnosis for this admission?: Yes Plan: Sensitive to vancomycin. (2) Severe sepsis Is this a current diagnosis for this admission?: Yes Plan: Little improving. (3) MRSA bacteremia Is this a current diagnosis for this admission?: Yes Plan: Enterococcus bacteremia as well. We will continue vancomycin for the next 2 weeks (4) Atrial fibrillation with RVR Is this a current diagnosis for this admission?: Yes Plan: Rate relatively controlled. (5) RLL PNA and pleural effusion Is this a current diagnosis for this admission?: Yes Plan: Continue current antibiotic (6) Acute on chronic systolic congestive heart failure, NYHA class 2 Is this a current diagnosis for this admission?: Yes Plan: Hold his Lasix due to hypotension. (7) Bilateral cellulitis of lower leg Is this a current diagnosis for this admission?: Yes Plan: Continue the above antibiotics. (8) Right parotid gland tumor Is this a current diagnosis for this admission?: Yes Plan: I will consult ENT. (9) COPD (chronic obstructive pulmonary disease) Qualifiers: Emphysema type: unspecified Is this a current diagnosis for this admission?: Yes Plan: Continue with bronchodilators (10) Type 2 diabetes mellitus Is this a current diagnosis for this admission?: Yes Plan: Continue sliding scale. (11) Alcohol dependence Is this a current diagnosis for this admission?: Yes Plan: Patient will be put on alcohol withdrawal protocol. (12) Tobacco dependence Is this a current diagnosis for this admission?: Yes Plan: We will prescribe nicotine patch and will encourage patient to quit smoking when he wakes up. (13) Obesity (BMI 30.0-34.9) Is this a current diagnosis for this admission?: Yes Plan: Patient will be encouraged to do lifestyle modification.
[2018-12-03] MEDS ORDERED: MAG HYDROX/AL HYDROX/SIMETH SUSP 30 ML UDCUP NG PRN (12:30)
[2018-12-03] MEDS ORDERED: DEXTROSE 40% GEL 15 GM TUBE NG PRN (12:30)
[2018-12-03] MEDS ORDERED: MAGNESIUM HYDROXIDE SUSP 30 ML UDCUP NG PRN (12:30)
[2018-12-03] MEDS ORDERED: ACETAMINOPHEN 325 MG TABLET NG PRN (12:30)
[2018-12-03] MEDS ORDERED: DEXTROSE 40% GEL 15 GM TUBE X 2 NG PRN (12:30)
[2018-12-03] MEDS: DILTIAZEM HCL 60 MG TABLET NG SCH ×2 (13:06→22:07)
[2018-12-03] MEDS: LORAZEPAM INJ 2 MG/1 ML VIAL IV PRN ×2 (13:41→17:37)
[2018-12-03] MEDS: APIXABAN 5 MG TABLET NG SCH (17:04)
[2018-12-03] MEDS: THIAMINE HCL 100 MG, FOLIC ACID 1 MG in NORMAL SALINE 250 ML IV SCH (22:09)
[2018-12-04] MEDS: LORAZEPAM INJ 2 MG/1 ML VIAL IV PRN ×2 (02:32→06:16)
[2018-12-04] MEDS: INSULIN LISPRO 100 UNIT/ML 3 ML VIAL SUBCUT SCH ×4 (04:05→18:15)
[2018-12-04 05:06] LABS: APPEARANCE,URINE CLOUDY; BILIRUBIN,URINE NEGATIVE (NEGATIVE); GLUCOSE, URINE NEGATIVE (NEGATIVE); KETONES,URINE 20 mg/dL (NEGATIVE); LEUKOCYTE ESTERASE,URINE SMALL (NEGATIVE); NITRITE,URINE NEGATIVE (NEGATIVE); PROTEIN,URINE 100 mg/dL (NEGATIVE); URINE SPECIFIC GRAVITY 1.016; UROBILINOGEN,URINE NEGATIVE mg/dL (<2.0)
[2018-12-04 05:07] LABS: COLOR,URINE DARK YELLOW
[2018-12-04 05:15] LABS: HEMATOCRIT 49.4 % (37.9-51.0); HEMOGLOBIN 16.2 g/dL (13.5-17.0); MEAN CORPUSCULAR HEMOGLOBIN 29.4 pg (27.0-33.4); MEAN CORPUSCULAR HGB CONC 32.8 g/dL (32.0-36.0); MEAN CORPUSCULAR VOLUME 89 fl (80-97); PLATELET COUNT 129 10^3/uL (150-450); RED BLOOD COUNT 5.53 10^6/uL (4.35-5.55); RED CELL DISTRIBUTION WIDTH 15.8 % (11.5-14.0); WHITE BLOOD COUNT 5.6 10^3/uL (4.0-10.5)
[2018-12-04] MEDS: DILTIAZEM HCL 60 MG TABLET NG SCH ×3 (06:11→21:14)
[2018-12-04] MEDS: NORMAL SALINE 1000 ML 1,000 ML IV PRN ×2 (06:36→16:51)
[2018-12-04] MEDS: FUROSEMIDE INJ/PF 40 MG/4 ML SDV IV SCH (07:54)
[2018-12-04] MEDS ORDERED: ASPIRIN 81 MG TABLET, CHEWABLE NG SCH (10:00)
[2018-12-04] MEDS: APIXABAN 5 MG TABLET NG SCH (10:40)
[2018-12-04] MEDS: NICOTINE 14 MG/24 HR PATCH.TD24 TD SCH (10:45)
[2018-12-04] MEDS: VANCOMYCIN HCL 1,000 MG in DEXTROSE 5%-WATER 250 ML IV SCH ×2 (10:46→21:46)
[2018-12-04] MEDS: FUROSEMIDE INJ/PF 20 MG/2 ML SDV IV SCH ×2 (10:46→21:15)
[2018-12-04] MEDS: DOCUSATE SODIUM 100 MG/10 ML UDC NG SCH (10:46)
--- NOTE | 2018-12-04 12:21 | PDOC PROGRESS REPORT ---
Subjective Progress Note for:: 12/04/18 Subjective:: his is 63 years old male patient with past medical history of peripheral arterial disease, atrial fibrillation, congestive heart failure, COPD, diabetes mellitus, fungating right parotid tumor, tobacco dependence, medical noncompliance presents with chief complaint of shortness of breath and bilateral leg swelling. Patient is known for long-standing medical noncompliance. He smokes a pack a day and drinks beer on a daily basis. When patient seen at ER he was in A. fib with rapid ventricular response. His BNP is [address] scan reported as moderate right pleural effusion associated atelectasis or consolidation. This morning patient seen and examined at bedside. He was in severe respiratory distress evidenced by tachypnea, wheezing and labored breathing. Stat ABG revealed respiratory acidosis with pH of 7.29 PCO2 of 58 and PO2 of 77. Stat chest x-ray reported as increasing airspace disease, probably atelectasis but right lower lobe pneumonia could not be ruled out. Patient given stat dose of Lasix, put on BiPAP and transferred to ICU for close monitoring. The same day overnight patient was downgraded to IMCU. Currently patient has been started initially with Zosyn and vancomycin. His blood culture is positive for MRSA and Enterococcus faecalis both are sensitive to vancomycin so at this point we discontinued Zosyn. He is A. fib with RVR initially managed with Cardizem drip later switched to p.o. Cardizem. Now the rate is controlled. An NG tube inserted for feeding. Patient remained agitated and trying to rip of his IV line and get appropriate. He is under soft wrist restraint. Since patient has hematuria and petechiae I hold his anticoagulation. Reason For Visit: AFIB HEART FAILURE Physical Exam Vital Signs: Temp Pulse Resp BP Pulse Ox 98.1 F 100 24 H 114/78 94 12/04/18 12:05 12/04/18 12:05 12/04/18 12:05 12/04/18 12:05 12/04/18 12:05 Intake & Output 12/03/18 12/04/18 12/05/18 06:59 06:59 06:59 Intake Total 3793.2 3011.2 60 Output Total 4900 2650 Balance -1106.8 361.2 60 Weight 99.7 kg 99.5 kg General appearance: PRESENT: mild distress Head exam: PRESENT: atraumatic Eye exam: PRESENT: conjunctival injection Mouth exam: PRESENT: dry mucosa Neck exam: ABSENT: carotid bruit, JVD, lymphadenopathy, thyromegaly Cardiovascular exam: PRESENT: irregular rhythm Results Laboratory Results: 12/04/18 04:17 12/03/18 10:17 12/04/18 12/04/18 12/04/18 04:00 04:00 04:17 WBC 5.6 RBC 5.53 Hgb 16.2 Hct 49.4 MCV 89 MCH 29.4 MCHC 32.8 RDW 15.8 H Plt Count 129 L Urine Color DARK YELLOW Urine Appearance CLOUDY Urine pH 6.0 Ur Specific [place] 1.016 Urine Protein 100 H Urine Glucose (UA) NEGATIVE Urine Ketones 20 H Urine Blood LARGE H Urine Nitrite NEGATIVE Ur Leukocyte Esterase SMALL H Urine WBC (Auto) >182 Urine RBC (Auto) >182 Stool Occult Blood POSITIVE 11/29/18 03:30 Blood Blood Culture - Final NO GROWTH IN 5 DAYS 11/28/18 17:54 Blood Blood Culture - Final Mrsa (Meth Resis Staph Aureus) Enterococcus Faecalis(Group D) 11/28/18 11/28/18 11/28/18 17:54 17:54 20:30 Creatine Kinase 650 H 642 H CK-MB (CK-2) Troponin I 0.016 NT-Pro-B Natriuret Pep 8440 H 11/28/18 11/29/18 11/29/18 20:30 02:24 02:24 Creatine Kinase 686 H CK-MB (CK-2) 4.61 H 6.62 H Troponin I 0.016 0.019 NT-Pro-B Natriuret Pep 11/29/18 11/29/18 10:04 10:04 Creatine Kinase 560 H CK-MB (CK-2) 6.43 H Troponin I 0.017 NT-Pro-B Natriuret Pep Impressions: Chest/Abdomen CTA 11/28/18 18:26 IMPRESSION: 1. Negative examination for pulmonary embolism. 2. Moderate right pleural effusion and associated atelectasis or consolidation. 3. Emphysema. 4. Coronary artery disease. 5. Ascites and anasarca in the included upper abdomen. Soft Tissue Neck CT 11/28/18 18:50 IMPRESSION: There is a large, exophytic mass which appears to arise from the parotid tail measuring 3.5 x 3.2 cm. There are additional small heterogeneously enhancing masses of the right parotid body measuring 1.7 and 1.3 cm. The primary differential consideration is Warthin's tumors. Chest X-Ray 12/01/18 00:00 IMPRESSION: RIGHT PLEURAL EFFUSION WITH RIGHT LOWER LOBE AIRSPACE DISEASE UNCHANGED. KUB X-Ray 12/03/18 08:27 IMPRESSION: Nasogastric tube in the stomach. Assessment and Plan - Diagnosis (1) Enterococcal bacteremia Is this a current diagnosis for this admission?: Yes Plan: Sensitive to vancomycin. (2) Severe sepsis Is this a current diagnosis for this admission?: Yes Plan: Little improving. (3) MRSA bacteremia Is this a current diagnosis for this admission?: Yes Plan: Enterococcus bacteremia as well. We will continue vancomycin for the next 2 weeks (4) Atrial fibrillation with RVR Is this a current diagnosis for this admission?: Yes Plan: Rate relatively controlled. (5) RLL PNA and pleural effusion Is this a current diagnosis for this admission?: Yes Plan: Continue current antibiotic (6) Acute on chronic systolic congestive heart failure, NYHA class 2 Is this a current diagnosis for this admission?: Yes Plan: Hold his Lasix due to hypotension. (7) Bilateral cellulitis of lower leg Is this a current diagnosis for this admission?: Yes Plan: Continue the above antibiotics. (8) Right parotid gland tumor Is this a current diagnosis for this admission?: Yes Plan: I will consult ENT. (9) COPD (chronic obstructive pulmonary disease) Qualifiers: Emphysema type: unspecified Is this a current diagnosis for this admission?: Yes Plan: Continue with bronchodilators (10) Type 2 diabetes mellitus Is this a current diagnosis for this admission?: Yes Plan: Continue sliding scale. (11) Alcohol dependence Is this a current diagnosis for this admission?: Yes Plan: Patient will be put on alcohol withdrawal protocol. (12) Tobacco dependence Is this a current diagnosis for this admission?: Yes Plan: We will prescribe nicotine patch and will encourage patient to quit smoking when he wakes up. (13) Obesity (BMI 30.0-34.9) Is this a current diagnosis for this admission?: Yes Plan: Patient will be encouraged to do lifestyle modification.
--- NOTE | 2018-12-04 15:12 | RADIOLOGY REPORT (SQ) ---
EXAM DESCRIPTION: KUB/ABDOMEN (SINGLE VIEW) COMPLETED DATE/TIME: 12/04/2018 2:58 pm REASON FOR STUDY: NG tube placement COMPARISON: 12/03/2018 and 12/01/2018. NUMBER OF VIEWS: One view. TECHNIQUE: Single frontal radiographic view of the chest and upper abdomen acquired. LIMITATIONS: None. FINDINGS: LUNGS AND PLEURA: Airspace disease in the right lung and right pleural effusion, essential ly unchanged. MEDIASTINUM AND HILAR STRUCTURES: No masses. Contour normal. HEART AND VASCULAR STRUCTURES: Cardiomegaly. BONES: No acute findings. HARDWARE: Tip of the nasogastric tube is just past to the gastroesophageal junction. OTHER: No other significant finding. IMPRESSION: TIP OF THE NASOGASTRIC TUBE JUST PAST THE GASTROESOPHAGEAL JUNCTION. WOULD RECOMMEND AD VANCEMENT BY 4-5 CM TO IMPROVE POSITIONING. TECHNICAL DOCUMENTATION: JOB ID: [id number] [employer]- All Rights Reserved Reading location - IP/workstation name: [email or web address]
--- NOTE | 2018-12-04 15:46 | RADIOLOGY REPORT (SQ) ---
EXAM DESCRIPTION: KUB/ABDOMEN (SINGLE VIEW) COMPLETED DATE/TIME: 12/04/2018 3:38 pm REASON FOR STUDY: assess NG tube placement COMPARISON: 02/03/2019. NUMBER OF VIEWS: One view. TECHNIQUE: Supine radiographic image of the lower chest and upper abdomen acquired. LIMITATIONS: None. FINDINGS: BOWEL GAS PATTERN: Mild small bowel dilation. CALCIFICATIONS: No suspicious calcifications. SOFT TISSUES: No gross mass or suggestion of organomegaly. HARDWARE: Nasogastric tube with the distal in the in the region of the stomach. BONES: No acute fracture. No worrisome bone lesions. OTHER: No other significant finding. IMPRESSION: NASOGASTRIC TUBE IN SATISFACTORY POSITION. TECHNICAL DOCUMENTATION: JOB ID: [id number] [employer]- All Rights Reserved Reading location - IP/workstation name: [email or web address]
[2018-12-04] MEDS: THIAMINE HCL 100 MG, FOLIC ACID 1 MG in NORMAL SALINE 250 ML IV SCH (21:16)
--- NOTE | 2018-12-04 23:53 | RADIOLOGY REPORT (SQ) ---
CLINICAL HISTORY: Kidney/Bladder COMPARISON: None. TECHNIQUE: US RETROPERITONEUM on 12/04/2018 12:00 AM CDT FINDINGS: Right kidney measures 11.5 cm and left kidney measures 9.9 cm. Both kidneys contain no definite calculi. There is no hydronephrosis. There is ascites present. There is a Roman catheter within the urinary bladder. IMPRESSION: No hydronephrosis.
[2018-12-05] MEDS: DILTIAZEM HCL 60 MG TABLET NG SCH ×3 (05:03→21:18)
[2018-12-05] MEDS: INSULIN LISPRO 100 UNIT/ML 3 ML VIAL SUBCUT SCH ×4 (05:06→18:23)
[2018-12-05] MEDS: NORMAL SALINE 1000 ML 1,000 ML IV PRN ×2 (05:07→17:20)
--- NOTE | 2018-12-05 08:12 | PDOC PROGRESS REPORT ---
Subjective Progress Note for:: 12/05/18 Subjective:: Patient is sleeping peacefully. Nurses report that he has not had any ativan for 24 hours, but he took apart his CPAP last night, despite soft wrist restraints. His O2 sat on room air was <70. He still has some blood in urine and bruising on skin, but all thought to be due to trauma. Abscess on neck remains, without change. Reason For Visit: AFIB HEART FAILURE Physical Exam Vital Signs: Temp Pulse Resp BP Pulse Ox 97.5 F 103 H 23 H 142/80 H 98 12/05/18 03:52 12/05/18 07:40 12/05/18 07:40 12/05/18 03:52 12/05/18 07:40 Intake & Output 12/04/18 12/05/18 12/06/18 06:59 06:59 06:59 Intake Total 3011.2 3218.2 Output Total 2650 2075 Balance 361.2 1143.2 Weight 99.5 kg 102.7 kg General appearance: PRESENT: well-developed, well-nourished Mouth exam: PRESENT: other - BiPAP in place Throat exam: PRESENT: other - BiPAP in place Respiratory exam: PRESENT: unlabored Gentrourinary exam: PRESENT: indwelling catheter Extremities exam: PRESENT: other - TEDs in place. Skin exam: PRESENT: other - Echymoses Results Laboratory Results: 12/04/18 04:17 12/03/18 10:17 11/29/18 03:30 Blood Blood Culture - Final NO GROWTH IN 5 DAYS 11/28/18 11/28/18 11/28/18 17:54 17:54 20:30 Creatine Kinase 650 H 642 H CK-MB (CK-2) Troponin I 0.016 NT-Pro-B Natriuret Pep 8440 H 11/28/18 11/29/18 11/29/18 20:30 02:24 02:24 Creatine Kinase 686 H CK-MB (CK-2) 4.61 H 6.62 H Troponin I 0.016 0.019 NT-Pro-B Natriuret Pep 11/29/18 11/29/18 10:04 10:04 Creatine Kinase 560 H CK-MB (CK-2) 6.43 H Troponin I 0.017 NT-Pro-B Natriuret Pep Impressions: Chest/Abdomen CTA 11/28/18 18:26 IMPRESSION: 1. Negative examination for pulmonary embolism. 2. Moderate right pleural effusion and associated atelectasis or consolidation. 3. Emphysema. 4. Coronary artery disease. 5. Ascites and anasarca in the included upper abdomen. Soft Tissue Neck CT 11/28/18 18:50 IMPRESSION: There is a large, exophytic mass which appears to arise from the parotid tail measuring 3.5 x 3.2 cm. There are additional small heterogeneously enhancing masses of the right parotid body measuring 1.7 and 1.3 cm. The primary differential consideration is Warthin's tumors. Chest X-Ray 12/01/18 00:00 IMPRESSION: RIGHT PLEURAL EFFUSION WITH RIGHT LOWER LOBE AIRSPACE DISEASE UNCHANGED. KUB X-Ray 12/04/18 00:00 IMPRESSION: NASOGASTRIC TUBE IN SATISFACTORY POSITION. Renal Ultrasound 12/04/18 00:00 IMPRESSION: No hydronephrosis. Assessment & Plan - Diagnosis (1) Right parotid gland tumor Is this a current diagnosis for this admission?: Yes Plan: ENT still has not seen this patient. I do not believe the underlying infection/sepsis will improve without treating the abscess on his neck. If ENT is unable to see him, the I would re-consult general surgery. (2) Acute exacerbation of CHF (congestive heart failure) Qualifiers: Heart failure type: systolic Qualified Code(s): I50.23 - Acute on chronic systolic (congestive) heart failure Is this a current diagnosis for this admission?: Yes (3) Alcohol dependence Is this a current diagnosis for this admission?: Yes (4) Atrial fibrillation with RVR Is this a current diagnosis for this admission?: Yes (5) Bilateral cellulitis of lower leg Is this a current diagnosis for this admission?: Yes - Plan Summary Plan Summary: All anticoagulation remains on hold due to bleeding, but I believe most of this is trauma. I will check PT/PTT/Fibrinogen today. His PLT count is stable and appropriate for current medical condition.
[2018-12-05 08:52] LABS: FIBRINOGEN 332 mg/dL (209-497); INTERNATIONAL RATION (INR) 1.14; PARTIAL THROMBOPLASTIN TIME 31.2 SEC (23.5-35.8); PROTHROMBIN TIME 15.2 SEC (11.4-15.4)
[2018-12-05] MEDS: DOCUSATE SODIUM 100 MG/10 ML UDC NG SCH (10:28)
[2018-12-05] MEDS: VANCOMYCIN HCL 1,000 MG in DEXTROSE 5%-WATER 250 ML IV SCH ×2 (10:28→21:21)
[2018-12-05] MEDS: FUROSEMIDE INJ/PF 20 MG/2 ML SDV IV SCH ×2 (10:28→21:17)
[2018-12-05] MEDS: NICOTINE 14 MG/24 HR PATCH.TD24 TD SCH (10:29)
[2018-12-05] MEDS: HYDRALAZINE HCL INJ/PF 20 MG/1 ML SDV IV PRN (20:53)
[2018-12-05] MEDS: THIAMINE HCL 100 MG, FOLIC ACID 1 MG in NORMAL SALINE 250 ML IV SCH (21:38)
[2018-12-06] MEDS: INSULIN LISPRO 100 UNIT/ML 3 ML VIAL SUBCUT SCH ×4 (00:40→17:23)
[2018-12-06 04:13] LABS: HEMATOCRIT 52.4 % (37.9-51.0); HEMOGLOBIN 17.2 g/dL (13.5-17.0); MEAN CORPUSCULAR HEMOGLOBIN 29.5 pg (27.0-33.4); MEAN CORPUSCULAR HGB CONC 32.8 g/dL (32.0-36.0); MEAN CORPUSCULAR VOLUME 90 fl (80-97); PLATELET COUNT 137 10^3/uL (150-450); RED BLOOD COUNT 5.82 10^6/uL (4.35-5.55); RED CELL DISTRIBUTION WIDTH 15.8 % (11.5-14.0); WHITE BLOOD COUNT 7.7 10^3/uL (4.0-10.5)
[2018-12-06] MEDS: DILTIAZEM HCL 60 MG TABLET NG SCH ×2 (05:36→17:06)
--- NOTE | 2018-12-06 08:33 | PDOC PROGRESS REPORT ---
Subjective Progress Note for:: 12/06/18 Subjective:: Patient still confused, but per nursing there are periods of lucidity. I discussed his case with ENT this morning, they will be seeing him today most likely. Reason For Visit: AFIB HEART FAILURE Physical Exam Vital Signs: Temp Pulse Resp BP Pulse Ox 98.2 F 97 13 130/84 H 92 12/06/18 00:16 12/06/18 07:00 12/06/18 00:16 12/06/18 00:16 12/06/18 00:16 Intake & Output 12/05/18 12/06/18 12/07/18 06:59 06:59 06:59 Intake Total 3218.2 2997.2 Output Total 2075 1570 Balance 1143.2 1427.2 Weight 102.7 kg 102.9 kg General appearance: PRESENT: no acute distress, well-developed, well-nourished Head exam: PRESENT: atraumatic, normocephalic Eye exam: PRESENT: conjunctiva pink, EOMI, PERRLA. ABSENT: scleral icterus Ear exam: PRESENT: normal external ear exam Mouth exam: PRESENT: moist, tongue midline Neck exam: ABSENT: carotid bruit, JVD, lymphadenopathy, thyromegaly Respiratory exam: PRESENT: clear to auscultation phil. ABSENT: rales, rhonchi, wheezes Cardiovascular exam: PRESENT: RRR. ABSENT: diastolic murmur, rubs, systolic murmur Pulses: PRESENT: normal dorsalis pedis pul Vascular exam: PRESENT: normal capillary refill GI/Abdominal exam: PRESENT: normal bowel sounds, soft. ABSENT: distended, guarding, mass, organolmegaly, rebound, tenderness Rectal exam: PRESENT: deferred Extremities exam: PRESENT: full ROM. ABSENT: calf tenderness, clubbing, pedal edema Neurological exam: PRESENT: alert, awake, oriented to person, oriented to place, oriented to time, oriented to situation, CN II-XII grossly intact. ABSENT: motor sensory deficit Psychiatric exam: PRESENT: appropriate affect, normal mood. ABSENT: homicidal ideation, suicidal ideation Skin exam: PRESENT: dry, intact, warm. ABSENT: cyanosis, rash Results Laboratory Results: 12/06/18 03:26 12/03/18 10:17 12/06/18 03:26 WBC 7.7 RBC 5.82 H Hgb 17.2 H Hct 52.4 H MCV 90 MCH 29.5 MCHC 32.8 RDW 15.8 H Plt Count 137 L 11/28/18 11/28/18 11/28/18 17:54 17:54 20:30 Creatine Kinase 650 H 642 H CK-MB (CK-2) Troponin I 0.016 NT-Pro-B Natriuret Pep 8440 H 11/28/18 11/29/18 11/29/18 20:30 02:24 02:24 Creatine Kinase 686 H CK-MB (CK-2) 4.61 H 6.62 H Troponin I 0.016 0.019 NT-Pro-B Natriuret Pep 11/29/18 11/29/18 10:04 10:04 Creatine Kinase 560 H CK-MB (CK-2) 6.43 H Troponin I 0.017 NT-Pro-B Natriuret Pep Impressions: Chest/Abdomen CTA 11/28/18 18:26 IMPRESSION: 1. Negative examination for pulmonary embolism. 2. Moderate right pleural effusion and associated atelectasis or consolidation. 3. Emphysema. 4. Coronary artery disease. 5. Ascites and anasarca in the included upper abdomen. Soft Tissue Neck CT 11/28/18 18:50 IMPRESSION: There is a large, exophytic mass which appears to arise from the parotid tail measuring 3.5 x 3.2 cm. There are additional small heterogeneously enhancing masses of the right parotid body measuring 1.7 and 1.3 cm. The primary differential consideration is Warthin's tumors. Chest X-Ray 12/01/18 00:00 IMPRESSION: RIGHT PLEURAL EFFUSION WITH RIGHT LOWER LOBE AIRSPACE DISEASE UNCHANGED. KUB X-Ray 12/04/18 00:00 IMPRESSION: NASOGASTRIC TUBE IN SATISFACTORY POSITION. Renal Ultrasound 12/04/18 00:00 IMPRESSION: No hydronephrosis. Status: Image reviewed by me Assessment & Plan - Diagnosis (1) Right parotid gland tumor Is this a current diagnosis for this admission?: Yes Plan: Asked ENT to look at patient today, need to know whether there is abscess issue ongoing, ultimately will need some sort of surgical intervention for this. We will follow.
[2018-12-06 11:07] LABS: VANCOMYCIN,TROUGH 14.8 ug/mL (5.0-20.0)
[2018-12-06] MEDS: NICOTINE 14 MG/24 HR PATCH.TD24 TD SCH (11:19)
[2018-12-06] MEDS: VANCOMYCIN HCL 1,000 MG in DEXTROSE 5%-WATER 250 ML IV SCH ×2 (11:19→22:56)
[2018-12-06] MEDS: DOCUSATE SODIUM 100 MG/10 ML UDC NG SCH (11:19)
[2018-12-06] MEDS: FUROSEMIDE INJ/PF 20 MG/2 ML SDV IV SCH ×2 (11:51→21:43)
--- NOTE | 2018-12-06 12:50 | CONSULTATION REPORT E ---
Consultation Report NAME: DANIELA GARCIA JR : 1955 AGE: 63Y DATE: 12/06/2018 ROOM: 303 A TO: MADELEINE OBRIEN MD FROM: SENTHIL CA M.D. Requesting Physician HISTORY: The Otolaryngology Service was asked to evaluate this 63-year-old patient with a neck mass. The patient states that he has had a right neck mass for approximately 1 year and he states back in July he noted ulceration in a portion of that mass. The patient states that he was evaluated by [facility] and they did perform a biopsy; however, the results of the biopsy are not available for review at this time. PHYSICAL EXAMINATION: NECK: There is a large 6 x 5 cm mass which is firm in the tail of the right parotid. There is a 3 x 2 cm large ulceration in the inferior aspect of this mass. There is tissue protruding from the ulceration that is reddish in color. The rest of the neck exam appeared normal without evidence of adenopathy. CN 7 intact bilaterally. RADIOLOGIC STUDIES: CT scan of the neck was reviewed which identified a large tail of the parotid mass along with two smaller intraparotid masses that may be intraparotid lymph nodes. A CT of the chest revealed a pleural effusion on the right side. ASSESSMENT: Right parotid mass. PLAN: 1. The diagnosis and treatment plan were discussed with the nursing staff, the patient, and the patient's mid level game designer. 2. Since the patient states he had a biopsy of the mass by [facility], I recommend obtaining the results for review. 3. If unable to obtain the results or if the biopsy results were inconclusive, then the patient will need a biopsy of that mass, either a fine-needle aspiration biopsy or an excisional biopsy from the ulcerated portion. DICTATING PHYSICIAN: MADELEINE OBRIEN M.D. [id number] PHY#: [id number] ID: [id number] JOB#: [id number] ACCT: [id number] cc:MADELEINE OBRIEN MD > [facility]
[2018-12-06] MEDS ORDERED: METOPROLOL TARTRATE PF/INJ 5 MG/5 ML SDV IV PRN ×2 (13:17→17:00)
[2018-12-06] MEDS ORDERED: MORPHINE SULFATE 10 MG/ML INJ IV ONE (13:30)
[2018-12-06] MEDS ORDERED: FUROSEMIDE INJ/PF 20 MG/2 ML SDV IV ONE (13:30)
[2018-12-06 13:38] LABS: ANION GAP 7 (5-19); BLOOD UREA NITROGEN 15 mg/dL (7-20); CALCIUM 9.6 mg/dL (8.4-10.2); CARBON DIOXIDE 37 mmol/L (22-30); CHLORIDE 97 mmol/L (98-107); GLUCOSE 158 mg/dL (75-110); POTASSIUM 3.8 mmol/L (3.6-5.0); SODIUM 141.1 mmol/L (137-145)
[2018-12-06] MEDS ORDERED: NOREPINEPHRINE BITARTRATE INJ/PF 4 MG/4 ML SDV IV ONE (13:58)
[2018-12-06] MEDS ORDERED: DEXTROSE 5%-WATER 250 ML with NOREPINEPHRINE BITARTRATE 4 MG IV PRN ×2 (14:00)
[2018-12-06] MEDS ORDERED: LEVALBUTEROL HCL NEB 1.25 MG/3 ML AMPUL NEB PRN (14:02)
[2018-12-06] MEDS ORDERED: PROPOFOL 1,000 MG/100 ML INFUS..BTL IV ONE (14:18)
--- NOTE | 2018-12-06 14:37 | RADIOLOGY REPORT (SQ) ---
EXAM DESCRIPTION: CHEST SINGLE VIEW COMPLETED DATE/TIME: 12/06/2018 2:24 pm REASON FOR STUDY: resp failure COMPARISON: 12/01/2018 EXAM PARAMETERS: NUMBER OF VIEWS: One view. TECHNIQUE: Single frontal radiographic view of the chest acquired. RADIATION DOSE: NA LIMITATIONS: None. FINDINGS: LUNGS AND PLEURA: Slightly increased bilateral pleural effusions. MEDIASTINUM AND HILAR STRUCTURES: No masses. Contour normal. HEART AND VASCULAR STRUCTURES: Cardiomegaly. BONES: No acute findings. HARDWARE: None in the chest. OTHER: Endotracheal tube is positioned with tip below the thoracic inlet. Esophagogastric tube with tip and side port below the diaphragm. IMPRESSION: 1. Slightly increased bilateral pleural effusions. Cardiomegaly. 2. Endotracheal tube is positioned with tip below the thoracic inlet. Esophagogastric tube with tip and side port below the diaphragm. TECHNICAL DOCUMENTATION: JOB ID: [id number] [employer]- All Rights Reserved Reading location - IP/workstation name: [email or web address]
[2018-12-06 14:40] LABS: ARTERIAL BLOOD BASE EXCESS 7.1 mmol/L; ARTERIAL BLOOD FIO2 100%; ARTERIAL BLOOD H2CO3 4.79 mmol/L (1.05-1.35); ARTERIAL BLOOD O2 SATURATION 78.8 % (94-98); ARTERIAL BLOOD PO2 62.6 mmHg (80-100); ARTERIAL BLOOD TOTAL CO2 50.8 mmol/L (23-27)
[2018-12-06 14:42] LABS: ARTERIAL BLOOD PCO2 159.3 mmHg (35-45); ARTERIAL BLOOD PH 7.08 (7.35-7.45)
[2018-12-06] MEDS ORDERED: SUCCINYLCHOLINE CHLORIDE INJ 200 MG/10 ML VIAL ONE (14:44)
[2018-12-06] MEDS ORDERED: SODIUM BICARBONATE 8.4% INJ 50 MEQ/50 ML DISP.SYRIN ONE (15:22)
[2018-12-06] MEDS ORDERED: NORMAL SALINE INJ/PF 0.9% 10 ML SDV IV PRN (15:25)
--- NOTE | 2018-12-06 15:25 | Operative Report ---
Nonrecallable Operative Report DATE OF SURGERY: 12/06/18 PREOPERATIVE DIAGNOSIS: hypotension, phlebosclerosis, shock POSTOPERATIVE DIAGNOSIS: same OPERATION: 1. u/s guided central venous puncture. 2. Left IJ c-line SURGEON: ROBERT QUARLES ANESTHESIA: Local TISSUE REMOVED OR ALTERED: none COMPLICATIONS: none apparent ESTIMATED BLOOD LOSS: minimal PROCEDURE: Implants: left IJ c-line at 14cm. Procedure in-detail: After informed consent was obtained from the pt's brother, the pt was laid in the Trendelenburg position in the ICU. The area of the left neck and chest were prepped and draped in a normal, sterile fashion. The ultrasound was used to identify the left internal jugular vein. The vein was compressible with normal flow. Under direct u/s guidance the access needle was used to cannulate the left IJ. Dark, venous blood was returned into the syringe. The wire was found to lie within the lumen of the vein using the ultrasound device. The catheter was then slid over the wire using a modified Seldinger technique. The catheter was sutured to the skin. The catheter was then aspirated and flushed without difficulty. The catheter returned dark, venous blood. Sterile IV tubing was used to confirm that the pressure of the blood column within the tubing was venous. A dressing and biopatch was placed. The procedure was then concluded. All sponge, instrument and needle counts were correct. Condition: Critical in ICU.
[2018-12-06] MEDS ORDERED: SODIUM BICARBONATE 8.4% INJ 50 MEQ/50 ML DISP.SYRIN IV ONE (15:30)
[2018-12-06] MEDS ORDERED: RINGERS SOLUTION,LACTATED 1,000 ML IV PRN (15:38)
--- NOTE | 2018-12-06 15:40 | RADIOLOGY REPORT (SQ) ---
EXAM DESCRIPTION: CHEST SINGLE VIEW COMPLETED DATE/TIME: 12/06/2018 3:24 pm REASON FOR STUDY: c-line COMPARISON: 12/06/2018 EXAM PARAMETERS: NUMBER OF VIEWS: One view. TECHNIQUE: Single frontal radiographic view of the chest acquired. RADIATION DOSE: NA LIMITATIONS: None. FINDINGS: LUNGS AND PLEURA: Right pleural effusion. MEDIASTINUM AND HILAR STRUCTURES: No masses. Contour normal. HEART AND VASCULAR STRUCTURES: Cardiomegaly. No bong pulmonary edema. BONES: No acute findings. HARDWARE: Endotracheal tube has its tip 6 cm above the conor. Left internal jugular catheter has it s tip in the superior vena cava. OTHER: No other significant finding. IMPRESSION: Left internal jugular catheter as described. TECHNICAL DOCUMENTATION: JOB ID: [id number] [employer]- All Rights Reserved Reading location - IP/workstation name: [email or web address]
[2018-12-06 16:05] LABS: AMORPHOUS SEDIMENT,URINE TRACE /HPF; APPEARANCE,URINE TURBID; BILIRUBIN,URINE NEGATIVE (NEGATIVE); CALCIUM OXALATE CRYSTALS,URINE FEW /HPF; COLOR,URINE YELLOW; GLUCOSE, URINE NEGATIVE (NEGATIVE); KETONES,URINE NEGATIVE (NEGATIVE); LEUKOCYTE ESTERASE,URINE SMALL (NEGATIVE); NITRITE,URINE NEGATIVE (NEGATIVE); PROTEIN,URINE 100 mg/dL (NEGATIVE); URINE SPECIFIC GRAVITY 1.018; UROBILINOGEN,URINE NEGATIVE mg/dL (<2.0)
[2018-12-06 16:24] LABS: ALANINE AMINOTRANSFERASE 28 U/L (21-72); ALBUMIN 3.2 g/dL (3.5-5.0); ALKALINE PHOSPHATASE 86 U/L (38-126); ASPARTATE AMINO TRANSFERASE 34 U/L (17-59); BILIRUBIN,DIRECT 0.5 mg/dL (0.0-0.4); BILIRUBIN,TOTAL 0.7 mg/dL (0.2-1.3); CREATINE KINASE 41 U/L (55-170); TOTAL PROTEIN 6.3 g/dL (6.3-8.2)
[2018-12-06] MEDS ORDERED: DIGOXIN INJ 0.5 MG/2 ML AMPULE ONE ×2 (16:40→21:20)
[2018-12-06] MEDS: MIDAZOLAM HCL 50 MG/100 ML RTUINJ IV PRN ×2 (16:50→21:42)
[2018-12-06] MEDS ORDERED: MIDAZOLAM HCL 50 MG/100 ML RTUINJ ONE (16:50)
[2018-12-06 17:22] LABS: CREATINE KINASE MB 2.7 ng/mL (<4.55); TROPONIN I 0.033 ng/mL
[2018-12-06] MEDS ORDERED: DIGOXIN INJ 0.5 MG/2 ML AMPULE IV ONE (17:30)
[2018-12-06] MEDS: RINGERS SOLUTION,LACTATED 1,000 ML IV PRN (18:08)
[2018-12-06] MEDS ORDERED: LORAZEPAM INJ 2 MG/1 ML VIAL IV PRN (18:46)
[2018-12-06 18:52] LABS: ARTERIAL BLOOD BASE EXCESS 15.6 mmol/L; ARTERIAL BLOOD HCO3 47.5 mmol/L (20-24); ARTERIAL BLOOD O2 SATURATION 96.5 % (94-98); ARTERIAL BLOOD PH 7.34 (7.35-7.45); ARTERIAL BLOOD PO2 96.5 mmHg (80-100); ARTERIAL BLOOD TOTAL CO2 50.2 mmol/L (23-27)
[2018-12-06 18:53] LABS: ARTERIAL BLOOD FIO2 85%
[2018-12-06 18:54] LABS: ARTERIAL BLOOD PCO2 89.8 mmHg (35-45)
[2018-12-06] MEDS: PROPOFOL 1,000 MG/100 ML INFUS..BTL IV PRN (19:05)
[2018-12-06] MEDS: HYDRALAZINE HCL INJ/PF 20 MG/1 ML SDV IV PRN (20:04)
[2018-12-06] MEDS: MORPHINE SULFATE 10 MG/ML INJ IV PRN (20:08)
[2018-12-06] MEDS: LEVALBUTEROL HCL NEB 1.25 MG/3 ML AMPUL NEB SCH (20:32)
[2018-12-06] MEDS: BUDESONIDE NEB 0.5 MG/2 ML AMPUL NEB SCH (20:32)
[2018-12-06] MEDS: IPRATROPIUM BROMIDE 0.02% NEB 0.5 MG/2.5 ML AMPUL NEB SCH (20:32)
[2018-12-06] MEDS ORDERED: PHENYLEPHRINE HCL INJ/PF 10 MG/1 ML SDV ONE (21:20)
[2018-12-06] MEDS: DEXTROSE 5%-WATER 250 ML with PHENYLEPHRINE HCL 40 MG IV PRN ×2 (21:25)
[2018-12-06] MEDS: METHYLPREDNISOLONE INJ 125 MG/2 ML SDV IV SCH (21:43)
[2018-12-06] MEDS ORDERED: CEFEPIME 1 GM/D5W RTU 1 GM/50 ML RTUPB IV SCH (22:00)
[2018-12-06 22:17] LABS: ARTERIAL BLOOD BASE EXCESS 13.9 mmol/L; ARTERIAL BLOOD H2CO3 2.09 mmol/L (1.05-1.35); ARTERIAL BLOOD HCO3 43.2 mmol/L (20-24); ARTERIAL BLOOD O2 SATURATION 93.6 % (94-98); ARTERIAL BLOOD PH 7.41 (7.35-7.45); ARTERIAL BLOOD PO2 69.9 mmHg (80-100); ARTERIAL BLOOD TOTAL CO2 45.4 mmol/L (23-27)
[2018-12-06 22:19] LABS: ARTERIAL BLOOD FIO2 85%; ARTERIAL BLOOD PCO2 69.3 mmHg (35-45)
[2018-12-06 22:34] LABS: BLOOD UREA NITROGEN 19 mg/dL (7-20); CALCIUM 9.1 mg/dL (8.4-10.2); CHLORIDE 95 mmol/L (98-107); GLUCOSE 85 mg/dL (75-110); POTASSIUM 3.5 mmol/L (3.6-5.0); SODIUM 140.4 mmol/L (137-145)
[2018-12-06 22:43] LABS: ANION GAP 3 (5-19); CARBON DIOXIDE 42 mmol/L (22-30)
[2018-12-06 22:46] LABS: TROPONIN I 0.063 ng/mL
[2018-12-06] MEDS: THIAMINE HCL 100 MG, FOLIC ACID 1 MG in NORMAL SALINE 250 ML IV SCH (22:56)
[2018-12-07] MEDS: LEVALBUTEROL HCL NEB 1.25 MG/3 ML AMPUL NEB SCH ×2 (01:47→07:28)
[2018-12-07] MEDS: IPRATROPIUM BROMIDE 0.02% NEB 0.5 MG/2.5 ML AMPUL NEB SCH ×2 (01:47→07:28)
[2018-12-07] MEDS ORDERED: PHENYLEPHRINE HCL INJ/PF 10 MG/1 ML SDV ONE (02:00)
[2018-12-07] MEDS: DEXTROSE 5%-WATER 250 ML with PHENYLEPHRINE HCL 40 MG IV PRN ×2 (02:00)
[2018-12-07] MEDS: DILTIAZEM HCL 60 MG TABLET NG SCH ×2 (02:11→05:54)
[2018-12-07] MEDS: INSULIN LISPRO 100 UNIT/ML 3 ML VIAL SUBCUT SCH ×2 (02:16→06:24)
[2018-12-07] MEDS: RINGERS SOLUTION,LACTATED 1,000 ML IV PRN (03:51)
[2018-12-07] MEDS: PROPOFOL 1,000 MG/100 ML INFUS..BTL IV PRN (03:52)
[2018-12-07] MEDS: MIDAZOLAM HCL 50 MG/100 ML RTUINJ IV PRN (03:53)
[2018-12-07 05:11] LABS: HEMATOCRIT 51.7 % (37.9-51.0); HEMOGLOBIN 16.8 g/dL (13.5-17.0); MEAN CORPUSCULAR HEMOGLOBIN 29.1 pg (27.0-33.4); MEAN CORPUSCULAR HGB CONC 32.6 g/dL (32.0-36.0); MEAN CORPUSCULAR VOLUME 89 fl (80-97); PLATELET COUNT 118 10^3/uL (150-450); RED BLOOD COUNT 5.79 10^6/uL (4.35-5.55); WHITE BLOOD COUNT 10.5 10^3/uL (4.0-10.5)
[2018-12-07 05:21] LABS: ARTERIAL BLOOD BASE EXCESS 12.9 mmol/L; ARTERIAL BLOOD H2CO3 1.78 mmol/L (1.05-1.35); ARTERIAL BLOOD HCO3 40.3 mmol/L (20-24); ARTERIAL BLOOD O2 SATURATION 94.6 % (94-98); ARTERIAL BLOOD PCO2 59.1 mmHg (35-45); ARTERIAL BLOOD PH 7.45 (7.35-7.45); ARTERIAL BLOOD PO2 71.2 mmHg (80-100); ARTERIAL BLOOD TOTAL CO2 42.2 mmol/L (23-27)
[2018-12-07 05:28] LABS: ALANINE AMINOTRANSFERASE 29 U/L (21-72); ALBUMIN 2.6 g/dL (3.5-5.0); ALKALINE PHOSPHATASE 60 U/L (38-126); ASPARTATE AMINO TRANSFERASE 40 U/L (17-59); BILIRUBIN,DIRECT 0.9 mg/dL (0.0-0.4); BILIRUBIN,TOTAL 1.5 mg/dL (0.2-1.3); BLOOD UREA NITROGEN 21 mg/dL (7-20); CHLORIDE 94 mmol/L (98-107); GLUCOSE 144 mg/dL (75-110); POTASSIUM 3.4 mmol/L (3.6-5.0); SODIUM 140.2 mmol/L (137-145); TOTAL PROTEIN 5.4 g/dL (6.3-8.2)
[2018-12-07 05:37] LABS: ARTERIAL BLOOD FIO2 80%
[2018-12-07 05:49] LABS: ANION GAP 5 (5-19); CARBON DIOXIDE 41 mmol/L (22-30)
[2018-12-07] MEDS: FUROSEMIDE INJ/PF 20 MG/2 ML SDV IV SCH (05:52)
[2018-12-07 06:19] LABS: ABSOLUTE LYMPHOCYTES# (MANUAL) 0.2 10^3/uL (0.5-4.7); ABSOLUTE MONOCYTES # (MANUAL) 0.8 10^3/uL (0.1-1.4); ABSOLUTE NEUTROPHILS# (MANUAL) 9.5 10^3/uL (1.7-8.2); BAND NEUTROPHILS % (MANUAL) 7 % (3-5); BASOPHILS % (MANUAL) 0 % (0-2); EOSINOPHILS % (MANUAL) 0 % (0-6); LYMPHOCYTES % (MANUAL) 2 % (13-45); METAMYELOCYTES % (MANUAL) 2 % (0); MONOCYTES % (MANUAL) 8 % (3-13); SEGMENTED NEUTROPHILS % (MAN) 81 % (42-78); TOTAL CELLS COUNTED 100
[2018-12-07 06:20] LABS: ANISOCYTOSIS 1+; PLATELET COMMENT DECREASED
[2018-12-07] MEDS: METHYLPREDNISOLONE INJ 125 MG/2 ML SDV IV SCH (06:40)
--- NOTE | 2018-12-07 06:49 | PDOC PROGRESS REPORT ---
Subjective Progress Note for:: 12/05/18 Subjective:: The patient has been requiring restraints for alcohol withdrawal. Reason For Visit: AFIB HEART FAILURE Physical Exam Vital Signs: Temp Pulse Resp BP Pulse Ox 97.3 F 91 22 H 121/67 96 12/05/18 08:26 12/05/18 08:37 12/05/18 08:37 12/05/18 08:26 12/05/18 08:37 Intake & Output 12/04/18 12/05/18 12/06/18 06:59 06:59 06:59 Intake Total 3011.2 3218.2 Output Total 2650 2075 Balance 361.2 1143.2 Weight 99.5 kg 102.7 kg General appearance: PRESENT: no acute distress Head exam: PRESENT: atraumatic, normocephalic, other - BiPAP in place Mouth exam: PRESENT: other - Nasogastric tube in place Neck exam: PRESENT: other - Tumor at the right angle of the mandible Respiratory exam: PRESENT: clear to auscultation phil, symmetrical, unlabored. ABSENT: rales, rhonchi, tachypnea, wheezes Cardiovascular exam: PRESENT: irregular rhythm GI/Abdominal exam: PRESENT: normal bowel sounds, soft. ABSENT: distended, tenderness Rectal exam: PRESENT: deferred Extremities exam: PRESENT: other - Scabs present. Less erythema than on admission.. ABSENT: pedal edema Neurological exam: PRESENT: alert, awake, oriented to person, oriented to place, oriented to situation Psychiatric exam: PRESENT: flat affect. ABSENT: agitated - Not agitated this morning, anxious Focused psych exam: PRESENT: restlessness. ABSENT: delusional Results Laboratory Results: 12/04/18 04:17 12/03/18 10:17 11/28/18 11/28/18 11/28/18 17:54 17:54 20:30 Creatine Kinase 650 H 642 H CK-MB (CK-2) Troponin I 0.016 NT-Pro-B Natriuret Pep 8440 H 11/28/18 11/29/18 11/29/18 20:30 02:24 02:24 Creatine Kinase 686 H CK-MB (CK-2) 4.61 H 6.62 H Troponin I 0.016 0.019 NT-Pro-B Natriuret Pep 11/29/18 11/29/18 10:04 10:04 Creatine Kinase 560 H CK-MB (CK-2) 6.43 H Troponin I 0.017 NT-Pro-B Natriuret Pep Impressions: Chest/Abdomen CTA 11/28/18 18:26 IMPRESSION: 1. Negative examination for pulmonary embolism. 2. Moderate right pleural effusion and associated atelectasis or consolidation. 3. Emphysema. 4. Coronary artery disease. 5. Ascites and anasarca in the included upper abdomen. Soft Tissue Neck CT 11/28/18 18:50 IMPRESSION: There is a large, exophytic mass which appears to arise from the parotid tail measuring 3.5 x 3.2 cm. There are additional small heterogeneously enhancing masses of the right parotid body measuring 1.7 and 1.3 cm. The primary differential consideration is Warthin's tumors. Chest X-Ray 12/01/18 00:00 IMPRESSION: RIGHT PLEURAL EFFUSION WITH RIGHT LOWER LOBE AIRSPACE DISEASE UNCHANGED. KUB X-Ray 12/04/18 00:00 IMPRESSION: NASOGASTRIC TUBE IN SATISFACTORY POSITION. Renal Ultrasound 12/04/18 00:00 IMPRESSION: No hydronephrosis. Assessment and Plan - Diagnosis (1) Atrial fibrillation Qualifiers: Atrial fibrillation type: unspecified Qualified Code(s): I48.91 - Unspecified atrial fibrillation Is this a current diagnosis for this admission?: Yes Plan: The patient likely has paroxysmal atrial fibrillation versus chronic. He states he was on medication for this but ran out of insurance and has not had medications in over a year. He is on carvedilol and diltiazem at this time. Continue to monitor rate. He is also on therapeutic Lovenox. 12/05/2018-the patient is now on diltiazem. Adjust medications based on heart rate. (2) Anasarca Is this a current diagnosis for this admission?: Yes Plan: 12/05/2018-continue diuresis. The patient may need albumin to improve output. (3) Acute exacerbation of CHF (congestive heart failure) Qualifiers: Heart failure type: systolic Qualified Code(s): I50.23 - Acute on chronic systolic (congestive) heart failure Is this a current diagnosis for this admission?: Yes Plan: 12/05/2018-unfortunate the patient has an ejection fraction of 25%. We will co ntinue to diuresis. He is already on beta-kumar therapy. (4) Bilateral lower leg cellulitis Is this a current diagnosis for this admission?: Yes Plan: 12/05/2018-continue antibiotic therapy. His legs do look improved from the time of admission. (5) Venous stasis of lower extremity Is this a current diagnosis for this admission?: Yes Plan: 12/05/2018-continue leg elevation. (6) Mass of parotid gland Is this a current diagnosis for this admission?: Yes Plan: 12/05/2018-ENT consult has been placed. (7) MRSA bacteremia Is this a current diagnosis for this admission?: Yes Plan: 12/05/2018-continue vancomycin. (8) Alcohol dependence Qualifiers: Substance use status: in withdrawal Is this a current diagnosis for this admission?: Yes Plan: 12/05/2018-continue use of benzodiazepines and restraints if needed. - Time Time Spent with patient: 15-24 minutes Medications reviewed and adjusted accordingly: Yes
--- NOTE | 2018-12-07 06:59 | PDOC PROGRESS REPORT ---
Subjective Progress Note for:: 12/06/18 Subjective:: I was called to the patient's room. His breathing has become more difficult. Despite his FiO2 on BiPAP increased to 100% his oxygen saturation is still in the mid 80s. Reason For Visit: AFIB HEART FAILURE Physical Exam Vital Signs: Temp Pulse Resp BP Pulse Ox 97.4 F 107 H 29 H 137/67 H 84 L 12/06/18 11:44 12/06/18 11:44 12/06/18 13:00 12/06/18 11:44 12/06/18 13:00 Intake & Output 12/05/18 12/06/18 12/07/18 06:59 06:59 06:59 Intake Total 3218.2 2997.2 Output Total 2075 1570 Balance 1143.2 1427.2 Weight 102.7 kg 102.9 kg General appearance: PRESENT: severe distress Head exam: PRESENT: atraumatic, normocephalic Ear exam: PRESENT: normal external ear exam Teeth exam: PRESENT: poor dentation, other - Nasogastric tube in place Respiratory exam: PRESENT: accessory muscle use, decreased breath sounds - At bases, rhonchi - Bilateral, tachypnea - The patient required Ambu bag and subsequent intubation Cardiovascular exam: PRESENT: irregular rhythm, tachycardia GI/Abdominal exam: PRESENT: hypoactive bowel sounds, soft. ABSENT: distended, tenderness Rectal exam: PRESENT: deferred Extremities exam: ABSENT: pedal edema Neurological exam: PRESENT: altered Psychiatric exam: PRESENT: agitated Results Laboratory Results: 12/06/18 03:26 12/06/18 03:26 WBC 7.7 RBC 5.82 H Hgb 17.2 H Hct 52.4 H MCV 90 MCH 29.5 MCHC 32.8 RDW 15.8 H Plt Count 137 L 11/28/18 11/28/18 11/28/18 17:54 17:54 20:30 Creatine Kinase 650 H 642 H CK-MB (CK-2) Troponin I 0.016 NT-Pro-B Natriuret Pep 8440 H 11/28/18 11/29/18 11/29/18 20:30 02:24 02:24 Creatine Kinase 686 H CK-MB (CK-2) 4.61 H 6.62 H Troponin I 0.016 0.019 NT-Pro-B Natriuret Pep 11/29/18 11/29/18 10:04 10:04 Creatine Kinase 560 H CK-MB (CK-2) 6.43 H Troponin I 0.017 NT-Pro-B Natriuret Pep Impressions: Chest/Abdomen CTA 11/28/18 18:26 IMPRESSION: 1. Negative examination for pulmonary embolism. 2. Moderate right pleural effusion and associated atelectasis or consolidation. 3. Emphysema. 4. Coronary artery disease. 5. Ascites and anasarca in the included upper abdomen. Soft Tissue Neck CT 11/28/18 18:50 IMPRESSION: There is a large, exophytic mass which appears to arise from the parotid tail measuring 3.5 x 3.2 cm. There are additional small heterogeneously enhancing masses of the right parotid body measuring 1.7 and 1.3 cm. The primary differential consideration is Warthin's tumors. Chest X-Ray 12/01/18 00:00 IMPRESSION: RIGHT PLEURAL EFFUSION WITH RIGHT LOWER LOBE AIRSPACE DISEASE UNCHANGED. KUB X-Ray 12/04/18 00:00 IMPRESSION: NASOGASTRIC TUBE IN SATISFACTORY POSITION. Renal Ultrasound 12/04/18 00:00 IMPRESSION: No hydronephrosis. Assessment and Plan - Diagnosis (1) Atrial fibrillation Qualifiers: Atrial fibrillation type: unspecified Qualified Code(s): I48.91 - Unspecified atrial fibrillation Is this a current diagnosis for this admission?: Yes Plan: The patient likely has paroxysmal atrial fibrillation versus chronic. He states he was on medication for this but ran out of insurance and has not had medications in over a year. He is on carvedilol and diltiazem at this time. Continue to monitor rate. He is also on therapeutic Lovenox. 12/05/2018-the patient is now on diltiazem. Adjust medications based on heart rate. 12/06/2018-the patient was tachycardic due to respiratory distress. (2) Anasarca Is this a current diagnosis for this admission?: Yes Plan: 12/05/2018-continue diuresis. The patient may need albumin to improve output. 12/06/2018-remains on diuretics. (3) Acute exacerbation of CHF (congestive heart failure) Qualifiers: Heart failure type: systolic Qualified Code(s): I50.23 - Acute on chronic systolic (congestive) heart failure Is this a current diagnosis for this admission?: Yes Plan: 12/05/2018-unfortunate the patient has an ejection fraction of 25%. We will continue to diuresis. He is already on beta-kumar therapy. 12/06/2018-remains in a positive fluid balance. Will need to diurese more aggressively. (4) Bilateral lower leg cellulitis Is this a current diagnosis for this admission?: Yes Plan: 12/05/2018-continue antibiotic therapy. His legs do look improved from the time of admission. 12/06/2018-continue antibiotics (5) Venous stasis of lower extremity Is this a current diagnosis for this admission?: Yes Plan: 12/05/2018-continue leg elevation. 12/06/2018-improved. Continue elevation. (6) Mass of parotid gland Is this a current diagnosis for this admission?: Yes Plan: 12/05/2018-ENT consult has been placed. 12/06/2018-discussed with ENT. They will be seeing the patient today or tomorrow. (7) Acute respiratory failure with hypoxia and hypercapnia Is this a current diagnosis for this admission?: Yes Plan: 12/06/2018-the patient experienced an acute and significant decline. He required a rapid response emergency. Because he failed BiPAP he would require intubation. He was recently intubated for his alcohol withdrawal. With his comorbidities and the severity of this event I did discuss with the patient if he wanted reintubation. Respiratory therapy stated that he indicated that he would not want to be reintubated however I could not get a consistent response from the patient. I immediately called the patient's brother. After long discussion outlining the patient's comorbidities and prognosis the patient's brother indicated that he would like to go forward with intubation. The patient was found to be coughing up tube feeds. Anesthesia was able to intubate after multiple suctioning. The patient will be transferred to the ICU. (8) Aspiration pneumonia Qualifiers: Aspiration pneumonia type: due to regurgitated food Laterality: unspecified laterality Is this a current diagnosis for this admission?: Yes Plan: 12/06/2018-the patient clearly has aspirated tube feeds. Significant tube feeding was coughed up during intubation. The patient will be transferred to the ICU and his antibiotic therapy will be broadened. - Time Time Spent with patient: 35 or more minutes Medications reviewed and adjusted accordingly: Yes
[2018-12-07] MEDS: BUDESONIDE NEB 0.5 MG/2 ML AMPUL NEB SCH (07:28)
--- NOTE | 2018-12-07 08:10 | PDOC PROGRESS REPORT ---
Subjective Progress Note for:: 12/06/18 - Critical care Subjective:: The patient was intubated in his room and transferred to the intensive care unit. Reason For Visit: AFIB HEART FAILURE Physical Exam Vital Signs: Temp Pulse Resp BP Pulse Ox 98.4 F 129 H 16 85/51 L 92 12/07/18 05:34 12/07/18 02:00 12/07/18 06:05 12/07/18 06:05 12/07/18 06:05 Intake & Output 12/05/18 12/06/18 12/07/18 06:59 06:59 06:59 Intake Total 3218.2 2997.2 2920.2 Output Total 2075 1570 485 Balance 1143.2 1427.2 2435.2 Weight 102.7 kg 102.9 kg 100.4 kg General appearance: PRESENT: other - Very ill-appearing 63-year-old patient is intubated and sedated. Head exam: PRESENT: atraumatic, normocephalic Respiratory exam: PRESENT: decreased breath sounds, rhonchi, tachypnea Cardiovascular exam: PRESENT: irregular rhythm, tachycardia GI/Abdominal exam: PRESENT: hypoactive bowel sounds, soft. ABSENT: distended Rectal exam: PRESENT: deferred Gentrourinary exam: PRESENT: indwelling catheter Extremities exam: ABSENT: pedal edema Neurological exam: PRESENT: other - Intubated and sedated. ABSENT: awake Psychiatric exam: PRESENT: agitated - Intermittently agitated Results Laboratory Results: 12/07/18 04:55 12/07/18 04:55 12/06/18 12/06/18 12/06/18 10:22 13:28 15:44 WBC RBC Hgb Hct MCV MCH MCHC RDW Plt Count Seg Neutrophils % Lymphocytes % Monocytes % Eosinophils % Basophils % Absolute Neutrophils Absolute Lymphocytes Absolute Monocytes Absolute Eosinophils Absolute Basophils Carbonic Acid 4.79 H HCO3/H2CO3 Ratio 9:1 ABG pH 7.08 L* ABG pCO2 159.3 H* ABG pO2 62.6 L ABG HCO3 46.0 H ABG O2 Saturation 78.8 L ABG Base Excess 7.1 FiO2 100% Sodium 141.1 Potassium 3.8 Chloride 97 L Carbon Dioxide 37 H Anion Gap 7 BUN 15 Creatinine 0.52 Est GFR ( Amer) > 60 Est GFR (Non-Af Amer) > 60 Glucose 158 H Lactic Acid Calcium 9.6 Magnesium 2.0 Total Bilirubin 0.7 AST 34 ALT 28 Alkaline Phosphatase 86 Total Protein 6.3 Albumin 3.2 L Urine Color Urine Appearance Urine pH Ur Specific Taylor Urine Protein Urine Glucose (UA) Urine Ketones Urine Blood Urine Nitrite Ur Leukocyte Esterase Urine WBC (Auto) Urine RBC (Auto) Stool Occult Blood 12/06/18 12/06/18 12/06/18 15:44 16:20 17:19 WBC RBC Hgb Hct MCV MCH MCHC RDW Plt Count Seg Neutrophils % Lymphocytes % Monocytes % Eosinophils % Basophils % Absolute Neutrophils Absolute Lymphocytes Absolute Monocytes Absolute Eosinophils Absolute Basophils Carbonic Acid 2.70 H HCO3/H2CO3 Ratio 17:1 ABG pH 7.34 L ABG pCO2 89.8 H* ABG pO2 96.5 ABG HCO3 47.5 H ABG O2 Saturation 96.5 ABG Base Excess 15.6 FiO2 85% Sodium Potassium Chloride Carbon Dioxide Anion Gap BUN Creatinine Est GFR ( Amer) Est GFR (Non-Af Amer) Glucose Lactic Acid 1.0 Calcium Magnesium Total Bilirubin AST ALT Alkaline Phosphatase Total Protein Albumin Urine Color YELLOW Urine Appearance TURBID Urine pH 6.0 Ur Specific Taylor 1.018 Urine Protein 100 H Urine Glucose (UA) NEGATIVE Urine Ketones NEGATIVE Urine Blood LARGE H Urine Nitrite NEGATIVE Ur Leukocyte Esterase SMALL H Urine WBC (Auto) 23 Urine RBC (Auto) >182 Stool Occult Blood 12/06/18 12/06/18 12/06/18 22:00 22:00 22:00 WBC RBC Hgb Hct MCV MCH MCHC RDW Plt Count Seg Neutrophils % Lymphocytes % Monocytes % Eosinophils % Basophils % Absolute Neutrophils Absolute Lymphocytes Absolute Monocytes Absolute Eosinophils Absolute Basophils Carbonic Acid 2.09 H HCO3/H2CO3 Ratio 20:1 ABG pH 7.41 ABG pCO2 69.3 H* ABG pO2 69.9 L ABG HCO3 43.2 H ABG O2 Saturation 93.6 L ABG Base Excess 13.9 FiO2 85% Sodium 140.4 Potassium 3.5 L Chloride 95 L Carbon Dioxide 42 H* Anion Gap 3 L BUN 19 Creatinine 0.99 Est GFR ( Amer) > 60 Est GFR (Non-Af Amer) > 60 Glucose 85 Lactic Acid 2.0 Calcium 9.1 Magnesium 1.7 Total Bilirubin AST ALT Alkaline Phosphatase Total Protein Albumin Urine Color Urine Appearance Urine pH Ur Specific Taylor Urine Protein Urine Glucose (UA) Urine Ketones Urine Blood Urine Nitrite Ur Leukocyte Esterase Urine WBC (Auto) Urine RBC (Auto) Stool Occult Blood 12/06/18 12/07/18 12/07/18 22:00 04:50 04:55 WBC 10.5 RBC 5.79 H Hgb 16.8 Hct 51.7 H MCV 89 MCH 29.1 MCHC 32.6 RDW 16.0 H Plt Count 118 L Seg Neutrophils % Not Reportable Lymphocytes % Not Reportable Monocytes % Not Reportable Eosinophils % Not Reportable Basophils % Not Reportable Absolute Neutrophils Not Reportable Absolute Lymphocytes Not Reportable Absolute Monocytes Not Reportable Absolute Eosinophils Not Reportable Absolute Basophils Not Reportable Carbonic Acid 1.78 H HCO3/H2CO3 Ratio 22:1 ABG pH 7.45 ABG pCO2 59.1 H ABG pO2 71.2 L ABG HCO3 40.3 H ABG O2 Saturation 94.6 ABG Base Excess 12.9 FiO2 80% Sodium Potassium Chloride Carbon Dioxide Anion Gap BUN Creatinine Est GFR ( Amer) Est GFR (Non-Af Amer) Glucose Lactic Acid Calcium Magnesium Total Bilirubin AST ALT Alkaline Phosphatase Total Protein Albumin Urine Color Urine Appearance Urine pH Ur Specific Taylor Urine Protein Urine Glucose (UA) Urine Ketones Urine Blood Urine Nitrite Ur Leukocyte Esterase Urine WBC (Auto) Urine RBC (Auto) Stool Occult Blood NEGATIVE 12/07/18 12/07/18 12/07/18 04:55 04:55 04:55 WBC RBC Hgb Hct MCV MCH MCHC RDW Plt Count Seg Neutrophils % Lymphocytes % Monocytes % Eosinophils % Basophils % Absolute Neutrophils Absolute Lymphocytes Absolute Monocytes Absolute Eosinophils Absolute Basophils Carbonic Acid HCO3/H2CO3 Ratio ABG pH ABG pCO2 ABG pO2 ABG HCO3 ABG O2 Saturation ABG Base Excess FiO2 Sodium Cancelled 140.2 Potassium Cancelled 3.4 L Chloride Cancelled 94 L Carbon Dioxide Cancelled 41 H* Anion Gap Cancelled 5 BUN Cancelled 21 H Creatinine Cancelled 1.27 H Est GFR ( Amer) Cancelled > 60 Est GFR (Non-Af Amer) Cancelled 57 L Glucose Cancelled 144 H Lactic Acid 2.5 H Calcium Cancelled 9.0 Magnesium Cancelled 1.6 Total Bilirubin 1.5 H AST 40 ALT 29 Alkaline Phosphatase 60 Total Protein 5.4 L Albumin 2.6 L Urine Color Urine Appearance Urine pH Ur Specific Taylor Urine Protein Urine Glucose (UA) Urine Ketones Urine Blood Urine Nitrite Ur Leukocyte Esterase Urine WBC (Auto) Urine RBC (Auto) Stool Occult Blood 11/28/18 11/28/18 11/28/18 17:54 17:54 20:30 Creatine Kinase 650 H 642 H CK-MB (CK-2) Troponin I 0.016 NT-Pro-B Natriuret Pep 8440 H 11/28/18 11/29/18 11/29/18 20:30 02:24 02:24 Creatine Kinase 686 H CK-MB (CK-2) 4.61 H 6.62 H Troponin I 0.016 0.019 NT-Pro-B Natriuret Pep 11/29/18 11/29/18 12/06/18 10:04 10:04 10:22 Creatine Kinase 560 H CK-MB (CK-2) 6.43 H Troponin I 0.017 NT-Pro-B Natriuret Pep 18705 H 12/06/18 12/06/18 12/06/18 15:44 16:20 22:00 Creatine Kinase 41 L CK-MB (CK-2) 2.70 Troponin I 0.033 0.063 NT-Pro-B Natriuret Pep 07743 H 12/07/18 04:55 Creatine Kinase CK-MB (CK-2) Troponin I 0.064 NT-Pro-B Natriuret Pep Impressions: Chest/Abdomen CTA 11/28/18 18:26 IMPRESSION: 1. Negative examination for pulmonary embolism. 2. Moderate right pleural effusion and associated atelectasis or consolidation. 3. Emphysema. 4. Coronary artery disease. 5. Ascites and anasarca in the included upper abdomen. Soft Tissue Neck CT 11/28/18 18:50 IMPRESSION: There is a large, exophytic mass which appears to arise from the parotid tail measuring 3.5 x 3.2 cm. There are additional small heterogeneously enhancing masses of the right parotid body measuring 1.7 and 1.3 cm. The primary differential consideration is Warthin's tumors. KUB X-Ray 12/04/18 00:00 IMPRESSION: NASOGASTRIC TUBE IN SATISFACTORY POSITION. Renal Ultrasound 12/04/18 00:00 IMPRESSION: No hydronephrosis. Assessment and Plan - Diagnosis (1) Atrial fibrillation Qualifiers: Atrial fibrillation type: unspecified Qualified Code(s): I48.91 - Unspecified atrial fibrillation Is this a current diagnosis for this admission?: Yes Plan: The patient likely has paroxysmal atrial fibrillation versus chronic. He states he was on medication for this but ran out of insurance and has not had medications in over a year. He is on carvedilol and diltiazem at this time. Continue to monitor rate. He is also on therapeutic Lovenox. 12/05/2018-the patient is now on diltiazem. Adjust medications based on heart rate. 12/06/2018-the patient was tachycardic due to respiratory distress. 12/06/2018-the patient still had an elevated heart rate with fibrillation. We are keeping the NG tube to suction until we remove all of the gastric contents. Therefore I will start IV digoxin as well as IV metoprolol. He may need to go on a diltiazem infusion. (2) Anasarca Is this a current diagnosis for this admission?: Yes Plan: 12/05/2018-continue diuresis. The patient may need albumin to improve output. 12/06/2018-remains on diuretics. 12/06/2018-because of the low albumin and need for aggressive diuresis with his underlying low ejection fraction (and needing fluids for possible sepsis) the patient will be on every 8 hour IV Lasix and IV albumin. We will need to monitor electrolytes. (3) Acute exacerbation of CHF (congestive heart failure) Qualifiers: Heart failure type: systolic Qualified Code(s): I50.23 - Acute on chronic systolic (congestive) heart failure Is this a current diagnosis for this admission?: Yes Plan: 12/05/2018-unfortunate the patient has an ejection fraction of 25%. We will continue to diuresis. He is already on beta-kumar therapy. 12/06/2018-remains in a positive fluid balance. Will need to diurese more aggressively. 12/06/2018-BNP was markedly elevated when checked today. With his low ejection fraction and multiple comorbidities with poor overall health the patient is at risk for intractable failure as he needs IV fluids but has a very low ejection fraction. Will treat with albumin and furosemide. (4) Bilateral lower leg cellulitis Is this a current diagnosis for this admission?: Yes Plan: 12/05/2018-continue antibiotic therapy. His legs do look improved from the time of admission. 12/06/2018-continue antibiotics (5) Venous stasis of lower extremity Is this a current diagnosis for this admission?: Yes Plan: 12/05/2018-continue leg elevation. 12/06/2018-improved. Continue elevation. (6) Mass of parotid gland Is this a current diagnosis for this admission?: Yes Plan: 12/05/2018-ENT consult has been placed. 12/06/2018-discussed with ENT. They will be seeing the patient today or tomorrow. (7) Acute respiratory failure with hypoxia and hypercapnia Is this a current diagnosis for this admission?: Yes Plan: 12/06/2018-the patient experienced an acute and significant decline. He required a rapid response emergency. Because he failed BiPAP he would require intubation. He was recently intubated for his alcohol withdrawal. With his comorbidities and the severity of this event I did discuss with the patient if he wanted reintubation. Respiratory therapy stated that he indicated that he would not want to be reintubated however I could not get a consistent response from the patient. I immediately called the patient's brother. After long discussion outlining the patient's comorbidities and prognosis the patient's brother indicated that he would like to go forward with intubation. The patient was found to be coughing up tube feeds. Anesthesia was able to intubate after multiple suctioning. The patient will be transferred to the ICU. 12/06/2018-blood gas preintubation showed a pH of 7.08 with a PCO2 of 153. The p atient was on a rate of 12 initially I will increase it to 16. His tidal volume is 500. We will check another blood gas in approximately an hour or so. (8) Aspiration pneumonia Qualifiers: Aspiration pneumonia type: due to regurgitated food Laterality: unspecified laterality Is this a current diagnosis for this admission?: Yes Plan: 12/06/2018-the patient clearly has aspirated tube feeds. Significant tube feeding was coughed up during intubation. The patient will be transferred to the ICU and his antibiotic therapy will be broadened. 12/13-cefepime was added to the vancomycin. This should cover for aspiration. We will hold tube feeds and keep the NG tube on suction. - Time Time Spent with patient: 35 or more minutes Total Critical Time (Minutes): 40 Medications reviewed and adjusted accordingly: Yes - Plan Summary Plan Summary: I did have a long discussion with the patient's brother just prior to intubation. I did not feel that the patient was consistent with his answers. I explained to the brother the high likelihood of poor outcome despite aggressive measures. The patient's brother was hesitant to make him DNR and did want the patient reintubated. The patient's brother visited the ICU and did discuss with the nurse the possibility of comfort measures. If the patient continues to do poorly, and I think this will be an unrecoverable episode, the brother may consider comfort measures only. With the patient prognosis being grave this would be an appropriate decision.
[2018-12-07 08:12] VITALS: BP 96/61
[2018-12-07] MEDS ORDERED: SCOPOLAMINE HYDROBROMIDE 1.5 MG PATCH.TD72 TD ONE (08:42)
--- NOTE | 2018-12-07 08:43 | RADIOLOGY REPORT (SQ) ---
EXAM DESCRIPTION: CHEST SINGLE VIEW COMPLETED DATE/TIME: 12/07/2018 6:24 am REASON FOR STUDY: resp failure, asp pneu, COMPARISON: 12/06/2018 EXAM PARAMETERS: NUMBER OF VIEWS: One view. TECHNIQUE: Single frontal radiographic view of the chest acquired. RADIATION DOSE: NA LIMITATIONS: None. FINDINGS: Slight interval worsening of diffuse bilateral interstitial pulmonary opacity and no signi ficant change in layering right greater than left pleural effusions. Unchanged cardiomegaly and supp ort apparatus including endotracheal tube. IMPRESSION: Slight interval worsening of diffuse bilateral interstitial pulmonary opacity and no sig nificant change in layering right greater than left pleural effusions. Unchanged cardiomegaly and amador pport apparatus including endotracheal tube. TECHNICAL DOCUMENTATION: JOB ID: [id number]- All Rights Reserved Reading location - IP/workstation name: [email or web address]
[2018-12-07] MEDS: MORPHINE SULFATE 10 MG/ML INJ IV PRN (09:00)
[2018-12-07] MEDS ORDERED: DIGOXIN INJ 0.5 MG/2 ML AMPULE IV SCH (10:00)
--- NOTE | 2018-12-07 10:19 | Death Summary ---
Summary Date : 12/07/18 Time of :: 09:47 Autopsy: No Resuscitation Status: Comfort Measures Only - Final Diagnosis (1) Acute exacerbation of CHF (congestive heart failure) Is this a current diagnosis for this admission?: Yes (2) Acute respiratory failure with hypoxia and hypercapnia Is this a current diagnosis for this admission?: Yes (3) Anasarca Is this a current diagnosis for this admission?: Yes (4) Aspiration pneumonia Is this a current diagnosis for this admission?: Yes (5) Atrial fibrillation Is this a current diagnosis for this admission?: Yes (6) Right parotid gland tumor Is this a current diagnosis for this admission?: Yes Hospital Course:: 63 year old male with a past medical history of long-term noncompliance of systolic and diastolic heart failure, atrial fibrillation, diabetes, peripheral vascular disease, COPD with tobacco dependence and large right sided fungating parotid tumor. Patient presented to initiate primary care but was referred to the emergency department for A. fib with RVR, shortness of breath, bilateral lower extremity cellulitis. Patient complains of several weeks of worsening lower extremity edema with oozing and worsening erythema. 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 Upon final imaging results he is referred to hospitalist service without treatment. Patient admits to gradual worsening of chronic conditions. Denying chest pain nausea or vomiting. Blood primarily complains of shortness of breath complicated by A. fib with RVR in the 120-140s. [id number]-old male with multiple medical problems including tumor of the parotid gland, atrial fibrillation, venous stasis of the lower extremity, anasarca admitted with acute exacerbation of CHF. He was transferred to ICU yesterday because he went into respiratory distress with atrial fibrillation with RVR. Found to have aspiration pneumonia. Also found to have an REGINA. He was promptly intubated on the way to the emergency room. Yesterday Dr. herrera spoke to the brother about overall critical clinical condition and poor prognosis, yesterday as per the note patient's brother is not willing to agree for comfort care measures. This morning I spoke to patient's brother Winston Fonseca explained the relatively poor prognosis and critical condition and no improvement in the last 24 hours, he understood and requested me to make his brother DNR/DNI and comfort care measures only. He is also requested us to extubate the patient and let him go peacefully. He also spoke to nurse Rachel weinberg about his request and conform to her that patient is going to be DNR/DNI and comfort care measures only and he does not want to come back at the time of extubation. So we went ahead and extubated the patient and patient peacefully at 9:47 AM. As per the family patient is not going to be referred for autopsy. After extubation patient peacefully at 9:47 AM.
== END 2018-12-07 10:40 | DRG 871 ==
LOC: ER 16:03 → EH 20:31 → 3W 11-29 16:39 → ICU 11-30 08:14 → 3N 12-01 00:35 → ICU 12-06 13:47
PROVIDERS: ADMIT Internal Medicine; ATTEND Internal Medicine
PROC: 5A09557 Assistance with Respiratory Ventilation, Greater than 96 Consecutive Hours, Continuous Positive Airway Pressure (ICD-10-PCS; principal; 2018-11-29)
PROC: 02HV33Z Insertion of Infusion Device into Superior Vena Cava, Percutaneous Approach (ICD-10-PCS; 2018-12-06)
PROC: B548ZZA Ultrasonography of Superior Vena Cava, Guidance (ICD-10-PCS; 2018-12-06)
PROC: 5A1935Z Respiratory Ventilation, Less than 24 Consecutive Hours (ICD-10-PCS; 2018-12-06)
PROC: 0BH17EZ Insertion of Endotracheal Airway into Trachea, Via Natural or Artificial Opening (ICD-10-PCS; 2018-12-06)
DX: A41.9 Sepsis, unspecified organism (principal); J18.1 Lobar pneumonia, unspecified organism; I50.23 Acute on chronic systolic (congestive) heart failure; J96.02 Acute respiratory failure with hypercapnia; J96.01 Acute respiratory failure with hypoxia; J69.0 Pneumonitis due to inhalation of food and vomit; L03.116 Cellulitis of left lower limb; L03.115 Cellulitis of right lower limb; N17.9 Acute kidney failure, unspecified; I11.0 Hypertensive heart disease with heart failure; R65.20 Severe sepsis without septic shock; M54.2 Cervicalgia; D49.0 Neoplasm of unspecified behavior of digestive system; I48.0 Paroxysmal atrial fibrillation; E11.8 Type 2 diabetes mellitus with unspecified complications; I73.9 Peripheral vascular disease, unspecified; J44.9 Chronic obstructive pulmonary disease, unspecified; I87.8 Other specified disorders of veins; F10.20 Alcohol dependence, uncomplicated; F17.210 Nicotine dependence, cigarettes, uncomplicated; B95.62 Methicillin resistant Staphylococcus aureus infection as the cause of diseases classified elsewhere; Y90.9 Presence of alcohol in blood, level not specified; Z91.14 Patient's other noncompliance with medication regimen; Z78.1 Physical restraint status; Z66 Do not resuscitate
CPT/HCPCS: 31500; 36415; 36600; 70491; 71045; 71046; 71275; 74018; 76770; 80048; 80053; 80076; 80202; 81001; 82272; 82550; 82553; 82565; 82803; 82962; 83605; 83615; 83735; 83880; 84443; 84484; 85025; 85027; 85384; 85610; 85730; 87040; 87070; 87077; 87086; 87186; 87205; 93005; 93010; 93306; 94002; 94003; 94640; 94660; 99285; C1751; J0330; J0360; J0692; J0696; J1160; J1642; J1650; J1815; J1940; J2060; J2250; J2270; J2370; J2543; J2704; J2930; J3370; J3411; J3490; J7030; J7050; J7060; J7120